=== PATIENT | male | born 1950 | race Caucasian/White ===

== ENCOUNTER 2019-07-23 09:55 | Observation (INO) | payer MEDICARE, OTHER, SELFPAY ==
[2019-07-23] VITALS (18 sets, daily range): BP systolic 115–155; BP diastolic 50–68; PULSE 56–68; RESP 12–94; TEMP 36.6–38.6; O2SAT 22–100; BMI 23.1
--- NOTE | 2019-07-23 | PATH_ITS ---
[facility] Accession Number: [id number] . 01 Material submitted: . gallbladder - GALLBLADDER . 01 Clinical history: . SENT OVER BY HIS DR . 02 Diagnosis: Gallbladder, Cholecystectomy: Acute necrotizing cholecystitis with serositis. Adenomyomatous hyperplasia. No evidence of dysplasia or malignancy. MRV 07/25/2019 1356 Local . 02 Electronically signed: . Miriam Collier MD, Pathologist NPI- [id number] . 01 Gross description: . Received in formalin, labeled gallbladder, is an opened gallbladder (length-9.3 cm, diameter-4.7 cm) with brown-pink smooth and shiny serosa and a patent cystic duct. No lymph nodes are identified. The lumen is void of content. The mucosa is brown-joy flat and focally rough. The wall is up to 0.1 cm thick. A joy-white firm nodule (0.5 x 0.4 x 0.3 cm) is identified attached to the most distal part of the fundus. No other nodules, masses or lesions are identified. Also, submitted is a dark green gritty friable calculus (0.5 x 0.3 x 0.3 cm). Section code: (A1) cystic duct resection margin and two serial sections from the body; (A2) fundus with nodule, longitudinally sectioned, nodule entirely submitted; (A3) two longitudinal sections from the fundus. ([id number]) /[facility] 07/24/2019 1747 Local . 02 Pathologist provided ICD-10: K81.0, K80.60 . 02 CPT . 698255 Performed at: [address] [facility], [place], [place] [id number] MD Aryan Marroquin MD Phone: [phone] Performed at: 02 [facility] [id number] [place] [id number] MD Miriam Collier MD Phone: [phone]
--- NOTE | 2019-07-23 | DI.RAD.S_ITS ---
PROCEDURE: XR CHOLANGIOGRAM OPERATIVE INDICATIONS: INTER OP [place]LIN COMPARISON: [facility], CT, CT ABDOMEN PELVIS W CON, 07/23/2019, 11:38. FINDINGS: Biliary ducts: The surgeon injected contrast into the biliary ducts after cannulation of the cystic duct stump. Mild dilatation of the extrahepatic duct and central intrahepatic ducts without stricture or focal filling defect. No intraluminal filling defects to suggest retained ductal stones or sludge. No evidence for iatrogenic ductal injury. Duodenum: Contrast flows promptly through the sphincter of Oddi into the duodenum, which appears normal in caliber. IMPRESSION: Mild biliary ductal dilatation. No stricture or stone identified. Dictated by: Robert Lomas M.D. on 07/23/2019 at 20:09 Approved by: Robert Lomas M.D. on 07/23/2019 at 20:11
[2019-07-23 10:38] LABS: Add Manual Diff / Slide Review NO; Basophils Absolute Auto 0 /uL (0-100); Basophils Percent Auto 0.3 % (0-2); Eosinophils Absolute Auto 0 /uL (0-450); Hematocrit 42.8 % (41-53); Hemoglobin 14.6 g/dL (13.5-17.5); Lymphocytes Absolute Auto 800 /uL (1100-4500); Lymphocytes Percent Auto 6.1 % (25-40); Mean Corpuscular HGB Conc 34.1 % (30-36); Mean Corpuscular Hemoglobin 32.3 PG (26-34); Mean Corpuscular Volume 94.7 fL (80-100); Monocytes Absolute Auto 1400 /uL (0-900); Monocytes Percent Auto 10.4 % (3-14); Neutrophils Absolute Auto 11000 /uL (1500-7000); Neutrophils Percent Auto 83.2 % (50-75); Platelet Count 206 X10^3/uL (150-400); Red Blood Cell Count 4.52 X10^6/uL (4.5-5.9); Red Cell Distribution Width 13.7 % (11.6-14.8); White Blood Cell Count 13.2 X10^3/uL (4.5-11.0)
[2019-07-23 10:51] LABS: Alanine Aminotransferase 31 IU/L (<50); Albumin 4.6 g/dL (3.5-5.0); Albumin Globulin Ratio 1.4 (1.0-2.8); Alkaline Phosphatase 57 U/L (38-126); Aspartate Aminotransferase 30 IU/L (17-59); BUN Creatinine Ratio 24.4 (6-22); Bilirubin Total 1.6 mg/dL (0.2-1.3); Blood Urea Nitrogen 22 mg/dL (9-20); Calcium 9.4 mg/dL (8.4-10.2); Carbon Dioxide 26 mmol/L (22-32); Chloride 99 mmol/L (98-107); Estimated Glomerular Filt Rate > 60.0 mL/min (>60); Globulin 3.3 g/dL (1.7-4.1); Glucose 149 mg/dL (80-110); HEMOLYSIS < 15 (0-50); Lipase 30 U/L (23-300); Sodium 136 mmol/L (137-145); Total Protein 7.9 g/dL (6.3-8.2)
[2019-07-23 10:56] LABS: INR 1.2 (0.9-1.3); Prothrombin Time 13.5 SECONDS (10.1-12.7)
[2019-07-23 10:59] LABS: PTT Partial Thromboplastin Tim 28 SECONDS (26.4-36.2)
--- NOTE | 2019-07-23 11:37 | DI.CT.S_ITS ---
PROCEDURE: CT ABDOMEN PELVIS W CON INDICATIONS: severe abdominal pain TECHNIQUE: After the administration of intravenous contrast, 5 mm thick sections acquired from the diaphragm to the symphysis. 5 mm coronal and sagittal reformats were acquired. For radiation dose reduction, the following was used: automated exposure control, adjustment of mA and/or kV according to patient size. COMPARISON: [facility], , ABD AORTA ANEURYSM SCREENING, 04/25/2017, 7:54. FINDINGS: Image quality: Excellent. ABDOMEN: Lung bases: Lung bases are clear. Heart size is normal. Solid organs: Liver is normal in size and enhancement. Gallbladder is distended, with a mildly thickened hyperenhancing abnormal. Pericholecystic fluid is seen. There is a gallstone seen lodged within the cystic duct. Biliary system is non dilated. Pancreas enhances normally. Spleen is normal in size and enhancement. No adrenal nodules. Kidneys demonstrate normal size and enhancement, without hydronephrosis. Peritoneum and bowel: There is abnormal thickening seen involving the cecum and the ascending colon, with mild surrounding inflammatory changes. Milder colonic wall thickening can be seen elsewhere. No dilated loops of small bowel are seen. No free air is seen. There is a mild amount of free fluid seen layering within the pelvis. Diverticulosis is seen, without findings of active diverticulitis. Nodes and vessels: No retroperitoneal or mesenteric adenopathy by size criteria. Aorta and inferior vena cava are normal in size. Miscellaneous: No ventral hernias. PELVIS: Genitourinary: Bladder wall thickness is normal. Miscellaneous: No inguinal hernias or adenopathy. Bones: No suspicious bony lesions. No vertebral body compression fractures. Mild levoconvex scoliotic curvature is noted. Focal L3-L4 degenerative change is seen. Milder degenerative changes are seen elsewhere. IMPRESSION: Abnormal gallbladder, with a gallstone seen lodged within the cystic duct. Acute cholecystitis is suspected. Please correlate with physical examination findings, patient presentation, and laboratory values. If clinically appropriate, a dedicated ultrasound could be performed for further evaluation/confirmation. Colitis seen, which is most prominent proximally. Please correlate with infectious and inflammatory causes. A mild amount of layering free fluid can be seen within the pelvis. Incidental note is made of: Diverticulosis is seen, without findings of active diverticulitis. Levoconvex scoliosis Focal L3-L4 degenerative change Note: Findings and recommendations discussed by telephone with Dr. Maino at 1203 hrs. [place] time on July 23, 2019. Dictated by: Dany Ruiz M.D. on 07/23/2019 at 10:58 Approved by: Dany Ruiz M.D. on 07/23/2019 at 11:05
--- NOTE | 2019-07-23 12:26 | ED_ITS ---
HPI - Abdominal Pain General Chief Complaint: Abdominal Pain Stated Complaint: Sent over by his Dr Source: patient Mode of arrival: Ambulatory Limitations: no limitations History of Present Illness HPI narrative: The patient is a 69-year-old male who came into the emergency department complaining of pain in the right lower abdomen. He denies having his gallbladder removed in the past or appendectomy. He has had no a surgery on his abdomen. The pain developed on Sunday and became progressively worse since . He saw his family doctor today and was sent into the emergency department to be further evaluated. He has been having intermittent fever chills and sweats. He has had no nasal drainage or sore throat. He denies any shortness of breath cough chest pain palpitations or dizziness. He has had nausea without vomiting he has had normal bowel movements without melena or hematochezia. He has had no diarrhea. He denies any urinary symptoms or pyuria. He denies any fall or injury. He admits to history of asthma as a child but has not had a myocardial infarction congestive heart failure stroke or diabetes mellitus. He does admit to a history of hypertension. Related Data Home Medications Medication Instructions Recorded Confirmed simvastatin 40 mg PO HS #0 07/31/17 07/23/19 cholecalciferol (vitamin D3) 1,000 unit PO DAILY 07/23/19 07/23/19 [Vitamin D3] Allergies Allergy/AdvReac Type Severity Reaction Status Date / Time No Known Allergies Allergy Verified 07/23/19 13:10 Review of Systems Review of Systems ROS Unobtainable: All systems reviewed & are unremarkable except as noted in HPI and below Patient History Medical History Asthma (Acute) Hypercholesteremia (Acute) Otosclerosis (Acute) Sciatic nerve pain (Acute) Surgical History Hx of tonsillectomy (Acute) Social History household members: spouse Smoking Status: Never smoker alcohol intake: current Smoking Status: Never smoker alcohol intake frequency: 0-2 drinks per day Exam Narrative Exam Narrative: PHYSICAL EXAM: CONSTITUTIONAL: Awake, Alert, Oriented, Coherent, Cooperative in NAD. Moves slowly and stiffly and appears stoic HEAD: AT/NC EENT: PERRL, FROM of eyes, no discharge, no nystagmus Oral mucosa is moist and pink, posterior pharynx is without erythema or exudate. NECK: Supple, no obvious JVD, Trachea is midline without stridor, no palpable LN or masses. SPINE: No gross deformity, no palpable tenderness of the cervical, thoracic, lumbar or sacral spine. No CVA tenderness. THORAX: No deformity, retractions, chest wall tenderness, subcutaneous air or crepitice. LUNGS: Clear with symmetrical breath sounds without respiratory distress HEART: Normal heart tones, regular rhythm and rate without murmur. ABDOMEN: Abdomen is flat and exquisitely tender with guarding in the right upper quadrant. There is no other palpable masses noted. Bowel sounds are present s EXTREMITIES: No edema, cyanosis, deformity or tenderness. SKIN: No rash, bruising, petechiae or purpura. NEURO: Awake, alert, oriented, conversive, cranial nerves II-XII are symmetrical and normal, moves all 4 extremities and is ambulatory Initial Vital Signs Initial Vital Signs: Vital Signs Temperature 98 F 07/23/19 10:04 Pulse Rate 57 L 07/23/19 10:04 Respiratory Rate 24 07/23/19 10:04 Blood Pressure 140/66 07/23/19 10:04 Pulse Oximetry 98 07/23/19 10:04 Course Course Course Narrative: 1205: The etiology is called in stated that the patient has acute cholecystitis with a thickened gallbladder wall and a gallstone in the neck of the gallbladder. He also has thickening of the colon wall consistent with colitis. However the patient does not complain he of a he history of diarrhea or hematochezia. On physical exam the patient is exquisitely tender on palpation of the right upper quadrant clinically consistent with acute cholecystitis. I will call and discuss the patient with the surgeon on-call. Dr. nasir cunha he the general surgeon on-call has been paged. [phone] Dr. Hernández he is in surgery and has accepted the patient being admitted. Orders Ordered: Acetaminophen (Tylenol) 650 mg PO Q6HR PRN PRN Reason: Pain, Mild (1-3) Enoxaparin Sodium (Lovenox) 40 mg SUBCUT DAILY NARCISO Gabapentin (Neurontin) 300 mg PO BID NARCISO Lactated Ringer's (Lactated Ringers) 1,000 mls @ 120 mls/hr IV CONT NARCISO Last Admin: 07/23/19 20:06 Dose: 120 mls/hr Documented by: BELLE Cefazolin Sodium/Dextrose (Ancef) 2 gm in 100 mls @ 200 mls/hr IV Q8H [facility] Stop: 07/24/19 09:29 Ketorolac Tromethamine (Toradol) 30 mg IV Q8HR PRN PRN Reason: Pain Stop: 07/28/19 19:28 Morphine Sulfate (Morphine) 4 mg IV Q4HR PRN PRN Reason: Pain, Severe (7-10) Naloxone HCl (Narcan) 0.2 mg IV Q2MIN PRN PRN Reason: Opiate Reversal Ondansetron HCl (Zofran) 4 mg IV Q4HR PRN PRN Reason: Nausea And Vomiting Simvastatin (Zocor) 40 mg PO BEDTIME [facility] Discontinued Medications Acetaminophen (Tylenol) 975 mg PO NOW ONE Stop: 07/23/19 16:32 Last Admin: 07/23/19 16:43 Dose: 975 mg Documented by: NELLA Bupivacaine HCl (Sensorcaine 0.5% (Pf)) 30 ml INJ NOW ONE Stop: 07/23/19 17:54 Last Admin: 07/23/19 17:54 Dose: 30 ml Documented by: DWAYNE Celecoxib (Celebrex) 400 mg PO NOW ONE Stop: 07/23/19 16:32 Last Admin: 07/23/19 16:43 Dose: 400 mg Documented by: NELLA Fentanyl (Sublimaze) 0 mcg IV Q5MIN PRN PRN Reason: Pain, Severe (7-10) Gabapentin (Neurontin) 300 mg PO NOW ONE Stop: 07/23/19 16:32 Last Admin: 07/23/19 16:43 Dose: 300 mg Documented by: NELLA Hydromorphone HCl (Dilaudid) 0 mg IV Q5MIN PRN PRN Reason: Pain, Mild (1-3) Sodium Chloride (Normal Saline 0.9%) 1,000 mls @ 1,000 mls/hr IV BOLUS ONE Stop: 07/23/19 12:48 Last Infusion: 07/23/19 13:59 Dose: 0 mls/hr Documented by: Admin: 07/23/19 12:43 Dose: 1,000 mls/hr Documented by: GALO Piperacillin/Tazobactam/Dextrose (Zosyn) 4.5 gm in 100 mls @ 200 mls/hr IV NOW ONE Stop: 07/23/19 13:34 Last Infusion: 07/23/19 14:00 Dose: 0 mls/hr Documented by: Admin: 07/23/19 13:17 Dose: 200 mls/hr Documented by: ROCK Lactated Ringer's (Lactated Ringers) 1,000 mls @ 42 mls/hr IV CONT NARCISO Last Infusion: 07/23/19 19:38 Dose: 0 mls/hr Documented by: Admin: 07/23/19 18:31 Dose: 42 mls/hr Documented by: Infusion: 07/23/19 18:31 Dose: 42 mls/hr Documented by: Admin: 07/23/19 16:39 Dose: 42 mls/hr Documented by: NELLA Cefazolin Sodium/Dextrose (Ancef) 2 gm in 100 mls @ 200 mls/hr IV NOW ONE Stop: 07/23/19 18:20 Last Infusion: 07/23/19 17:05 Dose: 0 mls/hr Documented by: Admin: 07/23/19 17:00 Dose: 200 mls/hr Documented by: BRIAN Iopamidol (Isovue-M 300) 15 ml INJ NOW ONE Stop: 07/23/19 18:24 Last Admin: 07/23/19 18:23 Dose: 30 ml Documented by: DWAYNE Morphine Sulfate (Morphine) 4 mg IV NOW ONE Stop: 07/23/19 12:31 Last Admin: 07/23/19 12:44 Dose: 4 mg Documented by: GALO Morphine Sulfate (Morphine) 4 mg IV NOW ONE Stop: 07/23/19 14:28 Last Admin: 07/23/19 14:23 Dose: Not Given Documented by: ROCK Ondansetron HCl (Zofran) 4 mg IV NOW ONE Stop: 07/23/19 11:50 Last Admin: 07/23/19 12:44 Dose: 4 mg Documented by: GALO Oxycodone HCl (Percolone) 5 mg PO PACUNOW PRN PRN Reason: Mild or moderate pain Vital Signs Vital signs: Vital Signs - 8 hr 07/23/19 14:33 Pulse Rate 64 Respiratory Rate 23 Blood Pressure 152/68 H Pulse Oximetry 98 MDM - Abdominal Pain Lab Data Result diagrams: 07/23/19 10:32 07/23/19 10:32 Labs: Lab Results 07/23/19 07/23/19 07/23/19 Range/Units 10:32 10:32 10:32 WBC 13.2 H (4.5-11.0) X10^3/uL RBC 4.52 (4.5-5.9) X10^6/uL Hgb 14.6 (13.5-17.5) g/dL Hct 42.8 (41-53) % MCV 94.7 (80-100) fL MCH 32.3 (26-34) PG MCHC 34.1 (30-36) % RDW 13.7 (11.6-14.8) % Plt Count 206 (150-400) X10^3/uL Neut % (Auto) 83.2 H (50-75) % Lymph % (Auto) 6.1 L (25-40) % [place] % (Auto) 10.4 (3-14) % Eos % (Auto) 0.0 L (2-4) % Baso % (Auto) 0.3 (0-2) % Neut # (Auto) 82886 H (1242-2914) /uL Lymph # (Auto) 800 L (9781-2600) /uL [place] # (Auto) 1400 H (0-900) /uL Eos # (Auto) 0 (0-450) /uL Baso # (Auto) 0 (0-100) /uL PT 13.5 H (10.1-12.7) SECONDS INR 1.2 (0.9-1.3) APTT 28 (26.4-36.2) SECONDS Sodium 136 L (137-145) mmol/L Potassium 4.0 (3.4-5.1) mmol/L Chloride 99 (98-107) mmol/L Carbon Dioxide 26 (22-32) mmol/L BUN 22 H (9-20) mg/dL Creatinine 0.90 (0.66-1.25) mg/dL Estimated GFR > 60.0 (>60) mL/min BUN/Creatinine Ratio 24.4 H (6-22) Glucose 149 H (80-110) mg/dL Calcium 9.4 (8.4-10.2) mg/dL Total Bilirubin 1.6 H (0.2-1.3) mg/dL AST 30 (17-59) IU/L ALT 31 (<50) IU/L Alkaline Phosphatase 57 (38-126) U/L Total Protein 7.9 (6.3-8.2) g/dL Albumin 4.6 (3.5-5.0) g/dL Globulin 3.3 (1.7-4.1) g/dL Albumin/Globulin Ratio 1.4 (1.0-2.8) Lipase 30 (23-300) U/L Discharge Plan Departure Patient Disposition: Admitted As Inpatient Clinical Impression: Acute cholecystitis, Colitis Abdominal pain Qualifiers: Abdominal location: right lower quadrant Qualified Code(s): R10.31 - Right lower quadrant pain Cholelithiasis Qualifiers: Cholelithiasis location: gallbladder Cholecystitis presence: with cholecystitis Cholecystitis acuity: acute Biliary obstruction: without biliary obstruction Qualified Code(s): K80.00 - Calculus of gallbladder with acute cholecystitis without obstruction Discharge Date/Time: 07/23/19 14:33 Referrals: Ana Monte MD [Primary Care Provider] - Admit Date/Time: 07/23/19 14:41 Admit Provider: Abebe Lindsay
[2019-07-23] MEDS: SODIUM CHLORIDE 0.9% 1,000 ML 1000 ML IV (12:43)
[2019-07-23] MEDS: ONDANSETRON 4 MG/2 ML INJ IV (12:44)
[2019-07-23] MEDS: MORPHINE 4 MG/ML INJ IV (12:44)
[2019-07-23] MEDS: PIPERACILLIN-TAZO 4.5 GM/100 ML FROZ.PIGGY IV (13:17)
--- NOTE | 2019-07-23 14:32 | PC.NURSE ---
Patient states wave of pain let up and is comfortable at this time. holding off on repeat dose of morphine per patient request and improvement of pain
--- NOTE | 2019-07-23 16:16 | PM.HP.1 ---
History of Present Illness History of Present Illness Date Patient Seen: 07/23/19 Time Patient Seen: 16:17 Chief complaint: Sent over by his Dr Narrative: Patient is gentleman with a history of several days of upper abdominal pain right upper quadrant pain accompanied by nausea. Last had p.o. this morning at 7:00 a.m. some toast. No prior history of this severe pain. It really hasn't gone away over the last 3 days. He has had reflux and heartburn before but this is nothing like the symptoms. No prior abdominal operations. Patient History Medical History Asthma (Acute) Hypercholesteremia (Acute) Otosclerosis (Acute) Sciatic nerve pain (Acute) Surgical History Hx of tonsillectomy (Acute) Family & Social History Social History: household members spouse Prior Living Arrangements House Safety & Behavioral: Feels Safe in Current Yes Environment Been Physically Hurt or No Threatened By a Person Suicidal Ideation Description None Tobacco & Substance use: Smoking Status Never smoker alcohol intake current alcohol intake frequency 0-2 drinks per day Meds Home Medications and Allergies Home Medications Medication Instructions Recorded Confirmed Type simvastatin 40 mg PO HS #0 07/31/17 07/23/19 History cholecalciferol (vitamin D3) 1,000 unit PO DAILY 07/23/19 07/23/19 History [Vitamin D3] Allergies Allergy/AdvReac Type Severity Reaction Status Date / Time No Known Allergies Allergy Verified 07/23/19 13:10 Review of Systems Review of Systems Narrative: Patient denies visual difficulties double vision pain is eyes earache sore throat no history of jaundice patient denies tooth aches no trouble swallowing. Had asthma as a child but no problems as an adult with asthma. Patient has no cough or cold. No heart problems chest pain or murmurs. No black or bloody bowel movements. Last colonoscopy was 2 years ago. No history of blood in his urine or kidney stones. No seizures or blackouts. No anxiety or depression. No unusual bruising or bleeding. Otherwise healthy except he does have some problems with back pain and has had a an injection for it. Exam Vital Signs (past 8 hours): - 07/23/19 10:04 07/23/19 10:35 07/23/19 14:33 Temperature 98 F Pulse Rate 57 L 56 L 64 Respiratory Rate 24 14 23 Blood Pressure 140/66 152/68 H Blood Pressure [Left Arm] 143/68 H Blood Pressure [Right Arm] 144/66 H Pulse Oximetry 98 98 07/23/19 14:54 07/23/19 15:39 Temperature 101.0 F H 101.5 F H Pulse Rate 60 60 Respiratory Rate 16 18 Blood Pressure 155/65 H 146/66 H Blood Pressure [Left Arm] Blood Pressure [Right Arm] Pulse Oximetry 99 100 Oxygen Delivery Method Room Air Oxygen Flow Rate 0 Narrative Exam Narrative: Cooperative no apparent distress thin gentleman eyes nonicteric pupils equal round reactive to light conjunctiva are pink ears without lesion nasal septum is midline oral mucosa is pink dry no open lesions no splits in his lips. His neck is supple there are no nodes in the neck supraclavicular areas trachea is midline mobile thyroid is not enlarged lungs are clear to auscultation without rales or rhonchi in equal percussion heart regular rate and rhythm without murmur gallop no bruit in the neck. Abdomen is scaphoid soft, discretely tender in the right upper quadrant. There are no masses no obvious hernias liver and spleen are not enlarged. Patient is alert oriented x3. Speech rate and content appropriate affect is appropriate Objective Imaging CT scan - abdomen: My impression: Distended gallbladder with thickened wall and gallstone. Radiologist's impression: Radiologist suggested the presence of colitis however not sure agree. Patient is asymptomatic in any event for colitis. Labs Result Diagrams: 07/23/19 10:32 07/23/19 10:32 Labs: Laboratory Results - last 24 hr 07/23/19 07/23/19 07/23/19 10:32 10:32 10:32 WBC 13.2 H RBC 4.52 Hgb 14.6 Hct 42.8 MCV 94.7 MCH 32.3 MCHC 34.1 RDW 13.7 Plt Count 206 Neut % (Auto) 83.2 H Lymph % (Auto) 6.1 L [place] % (Auto) 10.4 Eos % (Auto) 0.0 L Baso % (Auto) 0.3 Neut # (Auto) 91036 H Lymph # (Auto) 800 L [place] # (Auto) 1400 H Eos # (Auto) 0 Baso # (Auto) 0 PT 13.5 H INR 1.2 APTT 28 Sodium 136 L Potassium 4.0 Chloride 99 Carbon Dioxide 26 BUN 22 H Creatinine 0.90 Estimated GFR > 60.0 BUN/Creatinine Ratio 24.4 H Glucose 149 H Calcium 9.4 Total Bilirubin 1.6 H AST 30 ALT 31 Alkaline Phosphatase 57 Total Protein 7.9 Albumin 4.6 Globulin 3.3 Albumin/Globulin Ratio 1.4 Lipase 30 Assessment & Plan Assessment & Plan narrative: Patient with a distended gallbladder tenderness in the right upper quadrant pain and gallstones and elevated bili I have recommend laparoscopic cholecystectomy and will to attempt a cholangiogram I've discussed the procedure with him including risks of bleeding, infection, hernia, bile leakage, injury to internal organs or ducts which would require major operation to repair he appears to understand. He understands he could require postoperative ERCP should he have a leak or have stones outside of his cystic duct and gallbladder. All questions were answered. He appears to understand wishes to proceed.
[2019-07-23 16:21] LABS: Bacteria Urine None Seen; RBC Urine None Seen (0-5/HPF); WBC Urine None Seen (0-5/HPF)
[2019-07-23 16:25] LABS: Appearance Urine UA CLEAR; Bilirubin Urine UA NEGATIVE (NEGATIVE); Color Urine UA YELLOW; Glucose Urine UA NEGATIVE (Negative); Ketones Urine UA TRACE (NEGATIVE); Leukocyte Esterase Urine UA NEGATIVE (NEGATIVE); Nitrite Urine UA NEGATIVE (Negative); Occult Blood Urine UA TRACE-LYSED (Negative); Protein Urine UA 1+ (Negative)
[2019-07-23 16:34] LABS: Culture Indicated Urine Cult Not Indicated; Urine Comments Microscopic Normal
[2019-07-23] MEDS: LACTATED RINGERS 1,000 ML 42 ML IV ×2 (16:39→18:31)
[2019-07-23] MEDS: ACETAMINOPHEN 325 MG TABLET 975 MG PO (16:43)
[2019-07-23] MEDS: GABAPENTIN 300 MG CAPSULE PO ×2 (16:43→21:36)
[2019-07-23] MEDS: CELECOXIB 200 MG CAPSULE 400 MG PO (16:43)
--- NOTE | 2019-07-23 16:43 | PM.PREOP ---
Pre-operative Note Interval Note History & Physical reviewed/Exam performed by Physician: Yes Changes to H&P: No
[2019-07-23] MEDS: CEFAZOLIN 2 GM/100 ML FROZ.PIGGY IV (17:00)
--- NOTE | 2019-07-23 17:43 | SUR.OPER ---
Supine on padded OR bed, head on pillow, safety belt at thigh, left arm padded and tucked at side. Right arm secured on padded arm oard <90 degrees abduction. Legs uncrossed. Padded footboard in place. Tape over blanket to secure lower legs.
[2019-07-23] MEDS: BUPIVACAINE 0.5% (PF) VIAL 30 ML INJ (17:54)
[2019-07-23] MEDS: IOPAMIDOL 15 ML VIAL INJ (18:23)
--- NOTE | 2019-07-23 19:11 | SUR.PHASEI ---
Reported off to Billy Echavarria RN for continuation of care.
--- NOTE | 2019-07-23 19:16 | PM.OP.1 ---
Operative Date/Time/Diagnoses Date of procedure: 07/23/19 Time of procedure: 19:16 Pre-op diagnosis: Acute cholecystitis with cholelithiasis Post-op diagnosis: same Procedure & Clinicians Procedure: Laparoscopic cholecystectomy with intraoperative cholangiogram Same procedure as scheduled: Yes Indications: Severe right upper quadrant pain and CT suggesting acute cholecystitis Surgeon: Abebe Lindsay Click Yes if Unassisted: Yes Anesthesia Type: General Operative Notes Findings: Ronald and inflammation of the gallbladder with the beginning of hemorrhagic necrosis. Culture sent. Closure Type: primary Specimen(s): other (Gallbladder and stone) Prosthetic devices, grafts, tissues, transplants, or devices: None Estimated Blood Loss (mL): 20 Blood products transfused: none Procedure in detail: The patient was placed supine on the operating room table and underwent general endotracheal anesthesia. The patient was prepped and draped in the usual fashion. Local anesthetic was infiltrated near the umbilicus and curvilinear incision made and carried down through fascia into the peritoneal cavity. Stay sutures of 0 Vicryl were placed in the fascia. A 12 mm port was placed. The abdomen was insufflated. The patient was repositioned. Local anesthetic was infiltrated in 3 areas under the right costal margin and 3 small incisions made followed by placing 3 5 mm ports under direct laparoscopic camera vision internally. The gallbladder was encased in omentum and this was swept down off the gallbladder. The gallbladder was tensely distended and I inserted a needle and aspirated about 30 cc of greenish fluid which was cultured. The gallbladder was grasped and elevated. Dissection was begun near its end. I was able to identify the end of the gallbladder and a ductal structure going directly to it as well as a vascular structure and separate each of these from 1 another. A clip was placed at the junction of the gallbladder with the cystic duct and a small jensen was intentionally made in the cystic duct in order to insert a cholangiocatheter. Cholangiogram was performed. This showed a tapering duct with free flow into the duodenum and no persistent filling defects. The catheter was removed and 4 clips were placed across the duct and it was divided leaving all 4 in the patient. The artery had 3 clips placed across it and it was divided leaving 2 in the patient.. The gallbladder was then dissected from its bed in the liver using cautery. Hemostasis was achieved as I proceeded. The gallbladder was detached and removed through the umbilical port. the right upper quadrant was then irrigated and suctioned free of fluid. There was no ongoing bleeding. The ports were all removed. The port sites were all irrigated. The stay sutures at the umbilicus were elevated. A 2 0 PDS suture was placed between them. The Vicryl and PDS sutures were then tied. The skin in all areas was closed with interrupted 4 0 Vicryl subcuticular stitches. Steri-Strips and Mastisol were applied. Band-Aids were placed and the patient was awakened, extubated and taken to the recovery area in good condition. Complications: none Post-operative Condition: stable Disposition: PACU
--- NOTE | 2019-07-23 19:26 | SUR.PHASEI ---
191 Assumed care, abdominal bandaids CDI, abdomen soft. Pt denies pain/nausea. Ice chips given. 192 Report called to RN. VSS. Resp unlabored.
--- NOTE | 2019-07-23 19:57 | SUR.PHASEI ---
1944 to room 228, bed down and locked, call light within reach, spouse in the room, Pt. awake and talking, denies pain/nausea, tolerating PO intake well. Abd bandaids remain CDI with ice pack in place, abdomen flat. Skin warm and dry, resp unlabored. No questions/concerns from patient, spouse, or staff. VSS.
[2019-07-23] MEDS: LACTATED RINGERS 1,000 ML 120 ML IV (20:06)
--- NOTE | 2019-07-23 20:18 | PC.NURSE ---
1955 - Pt returned from PACU. Awake and alert, taking ice chips. Denies pain. Denies nausea. Bandaid Drsg to abd CDI. Reinforced safety and call light use. Call light in reach.
[2019-07-23] MEDS: SIMVASTATIN 40 MG TABLET PO (21:37)
[2019-07-24] MEDS: CEFAZOLIN 2 GM/100 ML FROZ.PIGGY IV ×2 (00:21→09:03)
[2019-07-24 00:37] VITALS: BP 122/61; PULSE 60; RESP 16; TEMP 37.3; O2SAT 92
--- NOTE | 2019-07-24 00:39 | PC.NURSE ---
Pt. do not have a left AC IV but RAC.
[2019-07-24 04:46] VITALS: BP 119/58; PULSE 55; RESP 16; TEMP 36.2; O2SAT 96
[2019-07-24] MEDS: LACTATED RINGERS 1,000 ML 120 ML IV (04:50)
[2019-07-24 05:11] LABS: Add Manual Diff / Slide Review NO; Basophils Absolute Auto 0 /uL (0-100); Basophils Percent Auto 0.1 % (0-2); Eosinophils Absolute Auto 0 /uL (0-450); Hematocrit 38.6 % (41-53); Hemoglobin 13.1 g/dL (13.5-17.5); Lymphocytes Absolute Auto 500 /uL (1100-4500); Lymphocytes Percent Auto 4.5 % (25-40); Mean Corpuscular Hemoglobin 32.1 PG (26-34); Mean Corpuscular Volume 94.5 fL (80-100); Monocytes Absolute Auto 700 /uL (0-900); Monocytes Percent Auto 6.3 % (3-14); Neutrophils Absolute Auto 9400 /uL (1500-7000); Neutrophils Percent Auto 89.1 % (50-75); Platelet Count 155 X10^3/uL (150-400); Red Blood Cell Count 4.09 X10^6/uL (4.5-5.9); Red Cell Distribution Width 13.6 % (11.6-14.8); White Blood Cell Count 10.6 X10^3/uL (4.5-11.0)
[2019-07-24 05:23] LABS: Alanine Aminotransferase 62 IU/L (<50); Albumin 3.6 g/dL (3.5-5.0); Albumin Globulin Ratio 1.2 (1.0-2.8); Alkaline Phosphatase 60 U/L (38-126); Aspartate Aminotransferase 56 IU/L (17-59); BUN Creatinine Ratio 24.4 (6-22); Bilirubin Total 1.1 mg/dL (0.2-1.3); Blood Urea Nitrogen 22 mg/dL (9-20); Calcium 8.6 mg/dL (8.4-10.2); Carbon Dioxide 23 mmol/L (22-32); Chloride 101 mmol/L (98-107); Estimated Glomerular Filt Rate > 60.0 mL/min (>60); Glucose 179 mg/dL (80-110); HEMOLYSIS < 15 (0-50); Potassium 4.4 mmol/L (3.4-5.1); Sodium 136 mmol/L (137-145); Total Protein 6.6 g/dL (6.3-8.2)
[2019-07-24 08:00] VITALS: BP 143/68; PULSE 53; RESP 16; TEMP 36.4; O2SAT 98
[2019-07-24 08:20] VITALS: PULSE 55; O2SAT 97
[2019-07-24] MEDS: GABAPENTIN 300 MG CAPSULE PO (09:01)
[2019-07-24] MEDS: ENOXAPARIN 40 MG/0.4 ML SYRINGE SUBCUT (09:02)
--- NOTE | 2019-07-24 10:32 | PC.NURSE ---
Pt. has been up to the restroom twice with standby assist only and has had two bowel movements. Pt.'s urine is fairly concentrated and a medium orange color. Diet has advanced to general. Patient has denied pain all morning and is currently sitting in the chair visiting with his .
--- NOTE | 2019-07-24 11:04 | P.DS_ITS ---
History of Present Illness History of Present Illness Chief complaint: Sent over by his Dr Narrative: Patient is gentleman with a history of several days of upper abdominal pain right upper quadrant pain accompanied by nausea. Last had p.o. this morning at 7:00 a.m. some toast. No prior history of this severe pain. It really hasn't gone away over the last 3 days. He has had reflux and heartburn before but this is nothing like the symptoms. No prior abdominal operations. Discharge Providers Provider Date of admission: 07/23/19 14:41 Discharge Date: 07/24/19 Primary care physician: Ana Monte MD Consults: 07/23/19 19:56 Consult to Discharge Planning Routine Comment: Discharge provider: Abebe Lindsay MD Summary Hospital Course Discharge Diagnosis: Acute cholecystitis with cholelithiasis Elevated cholesterol Mild anemia felt secondary principally to fluid shifts due to illness Elevated bilirubin resolved most likely secondary to acute cholecystitis Colitis suggested on CT scan most likely related to marked inflammation of the gallbladder adjacent to the colon rather than to a colonic process. Hospital Course: The patient was admitted taken to the operating room where a markedly inflamed hemorrhagic gallbladder was removed along with stones. Chol angiogram was normal. Postoperatively he felt much better and was discharged the following morning to follow up in the office. Status at Discharge Cognitive/behavioral status at discharge: oriented Functional status at discharge: independent ambulation Overall status at discharge: patient is progressing back to baseline Time Spent with Patient Time spent: Less than 30 minutes Exam Vital Signs (past 8 hours): - 07/24/19 04:46 07/24/19 08:00 07/24/19 08:20 Temperature 97.2 F L 97.5 F L Pulse Rate 55 L 53 L 55 L Respiratory Rate 16 16 Blood Pressure 119/58 L 143/68 H Pulse Oximetry 96 98 97 Oxygen Delivery Method Room Air Oxygen Flow Rate 0 Narrative Exam Narrative: Lungs are clear. Good effort. Abdomen mildly distended soft dressings are dry intact Objective Labs Result Diagrams: 07/24/19 04:47 07/24/19 04:47 Labs: Laboratory Results - last 24 hr 07/23/19 07/23/19 07/24/19 14:45 15:00 04:47 WBC 10.6 RBC 4.09 L Hgb 13.1 L Hct 38.6 L MCV 94.5 MCH 32.1 MCHC 34.0 RDW 13.6 Plt Count 155 Neut % (Auto) 89.1 H Lymph % (Auto) 4.5 L [place] % (Auto) 6.3 Eos % (Auto) 0.0 L Baso % (Auto) 0.1 Neut # (Auto) 9400 H Lymph # (Auto) 500 L [place] # (Auto) 700 Eos # (Auto) 0 Baso # (Auto) 0 Sodium Potassium Chloride Carbon Dioxide BUN Creatinine Estimated GFR BUN/Creatinine Ratio Glucose Calcium Total Bilirubin AST ALT Alkaline Phosphatase Total Protein Albumin Globulin Albumin/Globulin Ratio Urine Color Yellow Urine Appearance Clear Urine pH 7.0 Ur Specific [place] 1.010 Urine Protein 1+ H Urine Glucose (UA) Negative Urine Ketones Trace H Urine Occult Blood Trace-lysed Urine Nitrate Negative Urine Bilirubin Negative Urine Urobilinogen 1.0 Ur Leukocyte Esterase Negative Urine RBC None seen Urine WBC None seen Urine Bacteria None seen Ur Culture Indicated? Cult not indicated Micro UA Comment Microscopic normal Nasal Screen MRSA (PCR) Negative for mrsa 07/24/19 04:47 WBC RBC Hgb Hct MCV MCH MCHC RDW Plt Count Neut % (Auto) Lymph % (Auto) [place] % (Auto) Eos % (Auto) Baso % (Auto) Neut # (Auto) Lymph # (Auto) [place] # (Auto) Eos # (Auto) Baso # (Auto) Sodium 136 L Potassium 4.4 Chloride 101 Carbon Dioxide 23 BUN 22 H Creatinine 0.90 Estimated GFR > 60.0 BUN/Creatinine Ratio 24.4 H Glucose 179 H Calcium 8.6 Total Bilirubin 1.1 AST 56 ALT 62 H Alkaline Phosphatase 60 Total Protein 6.6 Albumin 3.6 Globulin 3.0 Albumin/Globulin Ratio 1.2 Urine Color Urine Appearance Urine pH Ur Specific [place] Urine Protein Urine Glucose (UA) Urine Ketones Urine Occult Blood Urine Nitrate Urine Bilirubin Urine Urobilinogen Ur Leukocyte Esterase Urine RBC Urine WBC Urine Bacteria Ur Culture Indicated? Micro UA Comment Nasal Screen MRSA (PCR) Discharge Plan Discharge Plan Patient Disposition: Home Discharge comment: Your operation went well. Your gallbladder was quite inflamed. Discharge orders & Medications Prescriptions: New hydrocodone-acetaminophen [[place]] 5-325 mg tablet 1 tab PO Q4H PRN (Reason: pain) Qty: 10 RF: 0 Continued simvastatin 40 MG tablet 40 mg PO HS Qty: 0 RF: 0 cholecalciferol (vitamin D3) [Vitamin D3] 25 mcg (1,000 unit) Tablet 1,000 unit PO DAILY RF: 0 Follow up/Referrals: Ana Monte MD [Primary Care Provider] - Tyrell Meek MD [Physician] - 07/31/19 9:00 am (If you need to reach a doctor please call our office. If it is after hours call and listen to the entire message. At the end you will be connected with our page tomahawk weapon system operator who will call the doctor on-call) Abebe Lindsay MD [Physician] - None (I will not be available next week to see you in the office before your trip and therefore you will see my partner, Dr. Meek) Diet/Activity/Treatments Diet: Diet as Tolerated Activity: Do not lift over 10 lb or strain for the next 4 weeks. You may walk short and leisurely stroller is. No pool or tub for least 2 weeks. Skin/Wound/Dressing Care Report to your healthcare provider any signs of infection, such as:: chills, fever, increased pain, unusual drainage and unusual redness Dressing: You may remove Band-Aids in 2 days and get in the shower. Leave the tape under the Band-Aids fall off on its own. Visit Report/Discharge Packet Instructions: DI for Cholecystectomy, DI for Laparoscopy, Hydrocodo ne/Acetaminophen (By mouth) Visit Report Forms: Patient Portal/API, Stroke Signs & Symptoms Discharge Data Primary Care Provider: Ana Monte Attending Provider: Abebe Lindsay Admit Date/Time: 07/23/19 14:41 Discharges patient from system. Discharge Date/Time: 07/24/19 12:40
--- NOTE | 2019-07-24 11:59 | PC.NURSE ---
Addendum entered by Beny Landaverde R.N. 07/24/19 12:43: Please amend d/c time to state 1240. Addendum entered by Beny Landaverde R.N. 07/24/19 12:42: Pt d/c'd to home with spouse at 1140. Declined w/c transport to private vehicle. Student nurse escorted pt and spouse to exit for d/c. Pt was in no acute distress. Pt left with all belongings. Original Note: Pt to d/c home per MD orders. D/c teaching was done with pt and spouse at the bedside. Reviewed dx, post op plan, f/u appt, activity measures, diet progression, s/s post op wound infx, when to seek emergency medical tx, educated to rx (dose route time side effects monitoring). Pt and spouse verbalize understanding and state no questions at this time. PIV was removed earlier as charted. All belongings are gathered and pt will have lunch prior to d/c.
--- NOTE | 2019-07-24 12:44 | CM.DANOTE ---
Addendum entered by Mireya Gao LPN 07/24/19 12:49: Went to room to check in with pt. Pt had already left for home, per FAHEEM Swan, with his providing transport. Original Note: Discharge Planning/Care Management DCP: assessment: case received and discussed. EMR reviewed. Pt is a 69 year old male who admitted yesterday afternoon to care of [facility]: Dr. Lindsay PCP: Dr. Ana Monte Payer: Medicare and [employer] Admission status: in review: per UR FAHEEM Corado Pt was taken to surgery yesterday for Lap Cholecytectomy with IOC. Dr. Lindsay was here earlier, put in d/c orders for home. CM Discharge Assessment Start: 07/24/19 12:27 Freq: Status: Discharge Protocol: Document 07/24/19 12:43 ITV (Rec: 07/24/19 12:44 ITV [id number]) Discharge Planning Assessment Advance Directives? Yes Advance Directives on File Yes History Provided By Medical Record Prior Living Arrangements House Household Members spouse Is patient alert and oriented? Yes Review Status In Process
== END 2019-07-24 12:40 | disposition home or self-care (01) ==
LOC: ED 12:43 → ICU 14:55
PROVIDERS: Admitting Provider Specialist; Emergency Provider Emergency Medicine; PCP Student in an Organized Health Care Education/Training Program; Visit Provider Specialist
PROC: 0FT44ZZ Resection of Gallbladder, Percutaneous Endoscopic Approach (ICD-10-PCS; CPT 47562; principal; 2019-07-23 16:45)
DX: K80.00 Calculus of gallbladder with acute cholecystitis without obstruction (principal)
CPT/HCPCS: 47563; 36415; 74177; 74300; 76000; 80053; 81001; 83690; 85025; 85610; 85730; 87070; 87075; 87077; 87186; 87205; 87797; 93005; 93010; 94760; 96361; 96365; 96372; 96375; 99284; G0378; J0330; J0690; J1100; J1650; J1885; J2270; J2405; J2543; J2704; J3010; Q9967

== ENCOUNTER 2022-08-16 17:11 | Observation (INO) | payer MEDICARE, SELFPAY ==
[2019-07-23 15:27] VITALS: BMI 23.1
[2022-08-16] VITALS (15 sets, daily range): BP systolic 110–173; BP diastolic 57–76; PULSE 64–84; RESP 21–25; TEMP 36.8; O2SAT 94–99; BMI 23.1
--- NOTE | 2022-08-16 18:16 | ED.GENADULT ---
HPI - General Adult General Chief complaint: Abdominal Pain Stated complaint: lower abd pain Time Seen by Provider: 08/16/22 18:04 Source: patient and family () Mode of arrival: Ambulatory Limitations: no limitations History of Present Illness HPI narrative: Patient is a 72-year-old male. Is relatively healthy. Is here for evaluation of lower abdominal pain for the past couple days. Patient also had vomiting upon arrival here in the triage room. He would not had vomiting until coming here to the ER. He also states that he is having issues with urinating. Also states that he has had problems with having bowel movements. He feels like yes with a bathroom but has been unable to do so. Generally just not feel well. No chest pain. No shortness of breath. Had a colonoscopy 5 years ago. Had benign polyps removed. Was told that he needed a repeat colonoscopy in 5 years. Patient also reports a fever last evening. Related Data Home Medications Medication Instructions Recorded Confirmed cholecalciferol (vitamin D3) 25 1,000 unit PO DAILY 07/23/19 05/25/22 mcg (1,000 unit) tablet (Vitamin D3) Previous Rx's Medication Instructions Recorded simvastatin 40 mg tablet 40 mg PO BEDTIME #90 tabs 05/25/22 Allergies Allergy/AdvReac Type Severity Reaction Status Date / Time No Known Allergies Allergy Verified 05/25/22 08:57 Review of Systems Constitutional Constitutional: Reports system reviewed and no additional complaints, except as documented Cardiovascular Cardiovascular: Reports system reviewed and no additional complaints, except as documented Respiratory Respiratory: Reports system reviewed and no additional complaints, except as documented Gastrointestinal Gastrointestinal: Reports system reviewed and no additional complaints, except as documented Genitourinary Genitourinary: Reports system reviewed and no additional complaints, except as documented Integumentary/Breasts Skin/Breast: Reports system reviewed and no additional complaints, except as documented Hematologic/Lymphatic On Anticoagulants: No Patient History Medical History Asthma Chronic low back pain Erectile dysfunction Family history of prostate cancer Hearing loss History of colonic polyps Hypercholesteremia Mixed hyperlipidemia Obstructive sleep apnea (~1999) Sciatic nerve pain Seborrheic dermatitis Tinnitus Surgical History Anesthesia History of cholecystectomy (~2019) Hx of tonsillectomy (~1954) Otosclerosis (~1977) Family History Father Congestive heart failure Mother Dementia Sister Joint replaced Sister Joint replaced Social History details: (Marianela), 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, 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 household members: spouse Smoking Status: Never smoker alcohol intake: current Smoking Status: Never smoker alcohol intake frequency: 0-2 drinks per day Substance Use Type: does not use Exam Initial Vital Signs Initial Vital Signs: Vital Signs Temperature 98.2 F 08/16/22 17:46 Pulse Rate 72 08/16/22 17:46 Respiratory Rate 22 08/16/22 17:46 Blood Pressure 137/76 08/16/22 17:46 Pulse Oximetry 97 08/16/22 17:46 Oxygen Delivery Method 08/16/22 17:46 Const General: cooperative, healthy appearing and No ill appearing HENMT Head: normal to inspection and normocephalic Cardio Rate: regular rate Rhythm: abnormal rhythm GI Inspection: normal to inspection Palpation: No guarding and tender (Suprapubic/lower abdomen) Back/Spine/Pelvis Back: No CVA tenderness Skin General: no rashes or lesions noted Neuro General: patient alert, patient awake and moves all extremities Extrem General: normal to inspection and capillary refill normal Scores GCS [place] coma scale eye opening: Spontaneous [place] coma scale verbal response: Orientated [place] coma scale motor response: Obey commands [place] coma scale total score: 15 Course Orders Ordered: ED Orders 08/16/22 17:57 EKG-12 Lead Stat 08/16/22 18:20 Complete Blood Count AUTO DIFF Stat Comprehensive Metabolic Panel Stat Lipase Stat 08/16/22 18:44 CT abdomen pelvis w con Stat 08/16/22 19:00 Urine Culture Stat Urine Microscopic Stat 08/16/22 20:25 Consult to General Surgery Stat 08/16/22 20:33 EKG-12 Lead Stat 08/16/22 20:41 Blood Culture Stat Acetaminophen (Acetaminophen 325 Mg Tablet) 650 mg PO Q6H PRN PRN Reason: Fever/Mild Pain (1-3) Atorvastatin Calcium (Atorvastatin 20 Mg Tablet) 80 mg PO BEDTIME NARCISO Last Admin: 08/16/22 23:00 Dose: 80 mg Documented By: RB Calcium Carbonate (Calcium Carbonate 500 Mg Tab) 1,000 mg PO Q4HR PRN PRN Reason: Dyspepsia Sodium Chloride (Normal Saline 0.9%) 1,000 mls @ 60 mls/hr IV CONT NARCISO Last Admin: 08/17/22 01:16 Dose: 60 mls/hr Documented By: RB Piperacillin Sod/Tazobactam (Sod 3.375 gm/ Sodium Chloride) 100 mls @ 25 mls/hr IV Q8H NARCISO Metronidazole (Flagyl) 500 mg in 100 mls @ 100 mls/hr IV Q6H NARCISO Morphine Sulfate (Morphine 2 Mg/Ml Inj) 4 mg IV Q2HR PRN PRN Reason: Pain, Moderate (4-6) Last Admin: 08/16/22 18:52 Dose: 4 mg Documented By: JASEN Naloxone HCl (Naloxone 0.4 Mg/Ml Vial) 0.2 mg IV Q2MIN PRN PRN Reason: Opiate Reversal Ondansetron HCl (Ondansetron 4 Mg Odt) 4 mg PO NOW PRN PRN Reason: Nausea And Vomiting Ondansetron HCl (Ondansetron 4 Mg/2 Ml Inj) 4 mg IV NOW PRN PRN Reason: Nausea And Vomiting Last Admin: 08/16/22 18:20 Dose: 4 mg Documented By: JASEN Ondansetron HCl (Ondansetron 4 Mg/2 Ml Inj) 4 mg IV Q4HR PRN PRN Reason: Nausea And Vomiting Oxycodone HCl (Oxycodone Ir 5 Mg Tablet) 5 mg PO Q3H PRN PRN Reason: Pain, Moderate (4-)10 Sennosides (Sennosides 8.6 Mg Tablet) 17.2 mg PO BEDTIME [facility] Discontinued Medications Piperacillin Sod/Tazobactam (Sod 4.5 gm/ Sodium Chloride) 100 mls @ 200 mls/hr IV NOW ONE Stop: 08/16/22 20:26 Last Infusion: 08/16/22 21:46 Dose: 0 mls/hr Documented By: Admin: 08/16/22 20:55 Dose: 200 mls/hr Documented By: RB Metronidazole (Flagyl) 500 mg in 100 mls @ 100 mls/hr IV NOW ONE Stop: 08/16/22 21:24 Last Infusion: 08/16/22 22:19 Dose: 0 mls/hr Documented By: Admin: 08/16/22 20:56 Dose: 100 mls/hr Documented By: RONNY Lidocaine HCl (Lidocaine 2% (Glydo) 6 Ml Gel) 6 ml TOP NOW ONE Stop: 08/16/22 18:45 Last Admin: 08/16/22 18:52 Dose: 6 ml Documented By: JASEN Non-Formulary Medication (Simvastatin) 40 mg PO BEDTIME NARCISO Last Admin: 08/16/22 22:32 Dose: Not Given Documented By: RONNY Vital Signs Vital signs: Vital Signs - 8 hr 08/16/22 17:46 08/16/22 18:15 08/16/22 18:15 Temperature 98.2 F Pulse Rate 72 82 Respiratory Rate 22 22 Blood Pressure 137/76 173/75 H Pulse Oximetry 97 94 Oxygen Delivery Method Room Air 08/16/22 18:30 08/16/22 18:30 08/16/22 19:00 Temperature Pulse Rate 77 Respiratory Rate 22 Blood Pressure 144/66 H 124/62 Pulse Oximetry 97 Oxygen Delivery Method 08/16/22 19:00 08/16/22 19:30 08/16/22 20:00 Temperature Pulse Rate 78 84 64 Respiratory Rate 22 22 22 Blood Pressure Pulse Oximetry 97 95 94 Oxygen Delivery Method 08/16/22 20:30 08/16/22 20:35 08/16/22 20:35 Temperature Pulse Rate 67 73 Respiratory Rate 24 21 Blood Pressure 151/63 H Pulse Oximetry 96 96 Oxygen Delivery Method 08/16/22 20:47 08/16/22 20:47 Temperature Pulse Rate 66 Respiratory Rate 24 Blood Pressure 129/60 Pulse Oximetry 98 Oxygen Delivery Method Medical Decision Making Medical Records Medical records reviewed: Yes I reviewed the patient's medical records. Lab Data Lab results reviewed: Yes I reviewed the patient's lab results. 08/16/22 18:20 08/16/22 18:20 Labs: Lab Results 08/16/22 08/16/22 08/16/22 Range/Units 18:20 18:20 19:00 WBC 17.2 H (4.5-11.0) X10^3/uL RBC 4.72 (4.5-5.9) X10^6/uL Hgb 14.9 (13.5-17.5) g/dL Hct 44.0 (41-53) % MCV 93.2 (80-100) fL MCH 31.5 (26-34) PG MCHC 33.8 (30-36) % RDW 13.8 (11.6-14.8) % Plt Count 199 (150-400) X10^3/uL Neut % (Auto) 85.7 H (50-75) % Lymph % (Auto) 6.8 L (25-40) % [place] % (Auto) 7.2 (3-14) % Eos % (Auto) 0.1 L (2-4) % Baso % (Auto) 0.2 (0-2) % Neut # (Auto) 90021 H (1883-0359) /uL Lymph # (Auto) 1200 (1576-7399) /uL [place] # (Auto) 1200 H (0-900) /uL Eos # (Auto) 0 (0-450) /uL Baso # (Auto) 0 (0-100) /uL Sodium 135 L (137-145) mmol/L Potassium 4.9 (3.4-5.1) mmol/L Chloride 97 L (98-107) mmol/L Carbon Dioxide 26 (22-32) mmol/L BUN 20 (9-20) mg/dL Creatinine 0.92 (0.66-1.25) mg/dL Estimated GFR > 60 (>60) mL/min BUN/Creatinine Ratio 21.7 (6-22) Glucose 131 H (80-110) mg/dL Calcium 9.3 (8.4-10.2) mg/dL Total Bilirubin 2.1 H (0.2-1.3) mg/dL AST 30 (17-59) IU/L ALT 22 (<50) IU/L Alkaline Phosphatase 54 (38-126) U/L Total Protein 8.4 H (6.3-8.2) g/dL Albumin 4.8 (3.5-5.0) g/dL Globulin 3.6 (1.7-4.1) g/dL Albumin/Globulin Ratio 1.3 (1.0-2.8) Lipase 41 (23-300) U/L Urine RBC 0-1/hpf (0-5/HPF) Urine WBC 0-1/hpf (0-5/HPF) Ur Squamous Epith Cells 0-1 /hpf (0-5/HPF) Urine Bacteria Occasional (0-1) (None) Urine Mucus 1+ H (Negative) Ur Culture Indicated? Cult not indicated Urine Dip Bedside Urine Glucose Negative Bedside Urine Bilirubin - Negative Bedside Urine Ketone - Negative Urine Specific [place] 1.015 Bedside Urine Occult Blood - Negative Bedside Urine pH 6.0 Bedside Urine Protein + 30 Bedside Urine Urobilinogen 0.2 Bedside Urine Nitrite - Negative Bedside Urine Leukocytes - Negative Esterase Point of care testing: Urine Dip Bedside Urine Glucose Negative Bedside Urine Bilirubin - Negative Bedside Urine Ketone - Negative Urine Specific [place] 1.015 Bedside Urine Occult Blood - Negative Bedside Urine pH 6.0 Bedside Urine Protein + 30 Bedside Urine Urobilinogen 0.2 Bedside Urine Nitrite - Negative Bedside Urine Leukocytes - Negative Esterase Imaging Data CT scan - abdomen/pelvis: Radiologist's Impression: [address] [address] [address] Scan Report Signed Patient: Alfonso Montejo MR#: [id number] : 1950 Acct:[id number] Age/Sex: 72 / M Date of Service: 08/16/22 Loc: ED Accession Number: [id number] ?? Procedure: CT abdomen pelvis w con Ordering Provider: Ambrocio Noriega D.O. PROCEDURE:? CT ABDOMEN PELVIS W CON ? INDICATIONS:? Bilateral lower abdominal pain ? TECHNIQUE:? After the administration of intravenous contrast, axial sections acquired from the lung bases to the pubic symphysis.? Coronal and sagittal reformats were performed.? For radiation dose reduction, the following was used:? automated exposure control, adjustment of mA and/or kV according to patient size.? ? COMPARISON:? [facility], CT, CT ABDOMEN PELVIS W CON, 07/23/2019, 11:38. ? FINDINGS:? Image quality:? Adequate.? ? Lung bases:? Unremarkable. ? ABDOMEN: Liver:? Unremarkable.? ? Gallbladder:? Absent? ? Biliary ducts:? Prominent extrahepatic and central intrahepatic ducts, Likely within normal limits for post cholecystectomy state Pancreas:? Unremarkable.? ? Spleen:? Unremarkable.? ? Adrenal Glands:? Unremarkable.? ? Kidneys and Ureters:? Unremarkable.? ? ? Stomach and Bowel:? Mild sigmoid predominant colonic diverticulosis.? Pronounced wall thickening with adjacent fat stranding present at the distal sigmoid colon.? There are adjacent foci of gas which are indeterminate for gas within diverticula and or sequela of micro perforation.? No large volume pneumoperitoneum or substantial peritoneal free fluid.? No drainable diverticular abscess identified.? Large periampullary duodenal diverticulum. ? Abdominal Nodes:? No retroperitoneal or mesenteric adenopathy by size criteria.? Vessels:? Aorta and inferior vena cava are normal in size.? ? PELVIS: Pelvic Organs:? Unremarkable CT appearance Bladder:? Decompressed by Vo catheter. Pelvic Nodes: No enlarged lymph nodes.? ? Bones:? Multilevel degenerative change of the visualized spine. ? ? IMPRESSION:? Findings compatible with acute sigmoid diverticulitis. There are adjacent foci of gas which are indeterminate for gas within diverticula and/or sequela of micro perforation.? No large volume pneumoperitoneum or substantial peritoneal free fluid.? No drainable diverticular abscess identified. As there can be overlap in the imaging appearance of diverticulitis and colonic carcinoma, correlation with recent colonoscopy or consideration of colonoscopy after completion of therapy may be helpful.? ? Dictated by: Yury Mccauley M.D. on 08/16/2022 at 19:55 ? ? Approved by: Yury Mccauley M.D. on 08/16/2022 at 20:04?? ECG Data Attestation: I personally reviewed and interpreted this ECG as follows: Interpretation: Atrial fibrillation Ventricular rate of 86 Normal axis Normal QRS Normal QTC Nonspecific ST T wave changes Repeat EKG Sinus rhythm Ventricular rate is 66 Normal axis Normal QRS Normal QTC No ST T wave changes MDM Narrative Medical decision making narrative: On his initial EKG patient was rate controlled atrial fibrillation. This did coincide with his exam is he did have a irregular rhythm on exam. Patient does not have a history of atrial fibrillation. He converted to sinus rhythm without specific intervention. Bladder scan shows just under 400 cc of urine. Given his urinary symptoms a Vo catheter was placed. The does not appear to be any specific indication of urinary tract infection. CT scan does show diverticulitis with potential microperforations. There is no abscess. This does fit his clinical presentation and I suspect that his bladder symptoms are related to this any irritation/inflammation because of the diverticulitis. Blood cultures were obtained. Urine cultures obtained. Antibiotics were administered. No indication for 30 cc/kilogram of fluid given the fact that he was not altered and was not hypotensive. I did discuss the case with Dr. Lo on-call for General surgery who recommended admission to the hospital under the medicine service for further evaluation. I did discuss the case with SAHRA Goss the night Hospital provider who will admit. I also discussed the findings of the CT scan with the patient and his at bedside. They expressed understanding and agreement as well. Discharge Plan Departure Patient Disposition: Admitted As Inpatient Clinical Impression: Diverticulitis, Atrial fibrillation, Acute urinary retention Admit Date/Time: 08/16/22 20:57 Admit Provider: Steph Goss
[2022-08-16] MEDS: ONDANSETRON 4 MG/2 ML INJ IV (18:20)
--- NOTE | 2022-08-16 18:24 | PC.NURSE ---
Pt states highest temp at home 100.8
[2022-08-16 18:31] LABS: Add Manual Diff / Slide Review NO; Basophils Absolute Auto 0 /uL (0-100); Basophils Percent Auto 0.2 % (0-2); Eosinophils Absolute Auto 0 /uL (0-450); Eosinophils Percent Auto 0.1 % (2-4); Hemoglobin 14.9 g/dL (13.5-17.5); Lymphocytes Absolute Auto 1200 /uL (1100-4500); Lymphocytes Percent Auto 6.8 % (25-40); Mean Corpuscular HGB Conc 33.8 % (30-36); Mean Corpuscular Hemoglobin 31.5 PG (26-34); Mean Corpuscular Volume 93.2 fL (80-100); Monocytes Absolute Auto 1200 /uL (0-900); Monocytes Percent Auto 7.2 % (3-14); Neutrophils Absolute Auto 14700 /uL (1500-7000); Neutrophils Percent Auto 85.7 % (50-75); Platelet Count 199 X10^3/uL (150-400); Red Blood Cell Count 4.72 X10^6/uL (4.5-5.9); Red Cell Distribution Width 13.8 % (11.6-14.8); White Blood Cell Count 17.2 X10^3/uL (4.5-11.0)
--- NOTE | 2022-08-16 18:44 | DI.CT.S_ITS ---
PROCEDURE: CT ABDOMEN PELVIS W CON INDICATIONS: Bilateral lower abdominal pain TECHNIQUE: After the administration of intravenous contrast, axial sections acquired from the lung bases to the pubic symphysis. Coronal and sagittal reformats were performed. For radiation dose reduction, the following was used: automated exposure control, adjustment of mA and/or kV according to patient size. COMPARISON: [facility], CT, CT ABDOMEN PELVIS W CON, 07/23/2019, 11:38. FINDINGS: Image quality: Adequate. Lung bases: Unremarkable. ABDOMEN: Liver: Unremarkable. Gallbladder: Absent Biliary ducts: Prominent extrahepatic and central intrahepatic ducts, Likely within normal limits for post cholecystectomy state Pancreas: Unremarkable. Spleen: Unremarkable. Adrenal Glands: Unremarkable. Kidneys and Ureters: Unremarkable. Stomach and Bowel: Mild sigmoid predominant colonic diverticulosis. Pronounced wall thickening with adjacent fat stranding present at the distal sigmoid colon. There are adjacent foci of gas which are indeterminate for gas within diverticula and or sequela of micro perforation. No large volume pneumoperitoneum or substantial peritoneal free fluid. No drainable diverticular abscess identified. Large periampullary duodenal diverticulum. Abdominal Nodes: No retroperitoneal or mesenteric adenopathy by size criteria. Vessels: Aorta and inferior vena cava are normal in size. PELVIS: Pelvic Organs: Unremarkable CT appearance Bladder: Decompressed by Vo catheter. Pelvic Nodes: No enlarged lymph nodes. Bones: Multilevel degenerative change of the visualized spine. IMPRESSION: Findings compatible with acute sigmoid diverticulitis. There are adjacent foci of gas which are indeterminate for gas within diverticula and/or sequela of micro perforation. No large volume pneumoperitoneum or substantial peritoneal free fluid. No drainable diverticular abscess identified. As there can be overlap in the imaging appearance of diverticulitis and colonic carcinoma, correlation with recent colonoscopy or consideration of colonoscopy after completion of therapy may be helpful. Dictated by: Yury Mccauley M.D. on 08/16/2022 at 19:55 Approved by: Yury Mccauley M.D. on 08/16/2022 at 20:04
[2022-08-16 18:47] LABS: Alanine Aminotransferase 22 IU/L (<50); Albumin 4.8 g/dL (3.5-5.0); Albumin Globulin Ratio 1.3 (1.0-2.8); Alkaline Phosphatase 54 U/L (38-126); Aspartate Aminotransferase 30 IU/L (17-59); BUN Creatinine Ratio 21.7 (6-22); Bilirubin Total 2.1 mg/dL (0.2-1.3); Blood Urea Nitrogen 20 mg/dL (9-20); Calcium 9.3 mg/dL (8.4-10.2); Carbon Dioxide 26 mmol/L (22-32); Chloride 97 mmol/L (98-107); Estimated Glomerular Filt Rate > 60 mL/min (>60); Globulin 3.6 g/dL (1.7-4.1); Glucose 131 mg/dL (80-110); Lipase 41 U/L (23-300); Sodium 135 mmol/L (137-145); Total Protein 8.4 g/dL (6.3-8.2)
[2022-08-16] MEDS: LIDOCAINE 2% (GLYDO) 6 ML GEL TOP (18:52)
[2022-08-16] MEDS: MORPHINE 2 MG/ML INJ 4 MG IV (18:52)
[2022-08-16 18:54] LABS: HEMOLYSIS 132 (0-50); Potassium 4.9 mmol/L (3.4-5.1)
[2022-08-16 19:33] LABS: Bacteria Urine Occasional (0-1); Culture Indicated Urine Cult Not Indicated; RBC Urine 0-1/HPF (0-5/HPF); Squamous Epithelial Cell Urine 0-1 /HPF (0-5/HPF); WBC Urine 0-1/HPF (0-5/HPF)
[2022-08-16 19:34] LABS: Mucus Urine 1+ (Negative)
[2022-08-16] MEDS: PIPERACILLIN/TAZO 4.5 GM in SODIUM CHLORIDE 0.9% 100 ML IV (20:55)
[2022-08-16] MEDS: metroNIDAZOLE 500 MG/100 ML PIGGYBACK 100 MG IV (20:56)
--- NOTE | 2022-08-16 21:19 | DI.ECHO.S_ITS ---
[facility] +---------+ : : [address] : : : : [id number] : : : : Phone: [phone]+ Echocardiogram Report + + :Name: CAESAR CACERES Study Date: 08/17/2022 Height: 74 in : :[facility] ReadingLocation: Weight: 180 lb : : Gender: Male BSA: 2.1 m2 : :: 1950 Age: 72 yrs BP: 105/52 mmHg: :Reason For Study: ATRIAL FIBRILLATION : :Ordering Physician: HAKAN, : :DIEUDONNE Performed By: Bonnie Lema : :Referring: DIEUDONNE MCCLENDON : + + Interpretation Summary The left ventricle is normal in size and wall thickness. The ejection fraction is estimated to be 60-65%. The right ventricle is normal in size and function. No significant valvular pathology seen. The IVC is dilated (diameter is greater than 2.1 cm) yet it collapses greater than 50% with a sniff. This suggests a right atrial pressure of 8 mm Hg. Procedure: A two-dimensional transthoracic echocardiogram with color flow and Doppler was performed. The study quality was technically adequate. There is no prior echocardiogram noted for this patient. The heart rate ranged between 55-70 bpm during the study. The patient was in normal sinus rhythm during the exam. The patient had frequent PACs during the exam. Left Ventricle: The left ventricle is normal in size and wall thickness. A false chord is noted (normal variant). The ejection fraction is estimated to be 60-65%. LV dyssynchrony during PACs. Otherwise no significant focal wall motion abnormalities. Diastolic parameters suggest probable normal left ventricular diastolic function and normal filling pressures. Right Ventricle: The right ventricle is normal in size and function. Atria: The left atrium is severely dilated. The right atrium is mildly dilated. There is no Doppler evidence for an interatrial shunt. Mitral Valve: There is mild mitral annular calcification. There is mild mitral regurgitation. Aortic Valve: The aortic valve is trileaflet. The aortic valve opens well. There is no aortic valve stenosis. There is trace aortic regurgitation. Tricuspid Valve: The tricuspid valve is normal. Pulmonary artery pressures cannot be estimated because of the lack of a measurable TR jet velocity but the IVC suggests a CVP of around 8 mmHg. There is mild tricuspid regurgitation. Pulmonic Valve: The pulmonic valve is not well seen, but is grossly normal. There is trace pulmonic regurgitation. Great Vessels: The aortic root is normal size. The ascending aorta could not be visualized. The IVC is dilated (diameter is greater than 2.1 cm) yet it collapses greater than 50% with a sniff. This suggests a right atrial pressure of 8 mm Hg. Pericardium/ Pleura There is a trivial pericardial effusion noted. There are no echocardiographic indications of cardiac tamponade. There is no pleural effusion. MMode/2D Measurements & Calculations LVIDd: 5.2 cm LVOT diam: 2.2 cm LVIDs: 3.5 cm Ao root diam: 3.2 cm FS: 33.6 % Ao Arch Diam (Prox Trans): 2.6 cm IVSd: 0.77 cm LVPWd: 0.92 cm LV ozuna. diameter/BSA (cm/m^2): 2.5 LV sys. diameter/BSA (cm/m^2): 1.7 LA A2 area: 29.4 cm2 RA long axis: 6.7 cm LA A4 area: 23.6 cm2 RA area: 24.9 cm2 LA length (vol): 5.9 cm RA vol: 78.9 ml LA vol: 100.1 ml RA : 38.0 ml/m2 LA vol index: 48.2 ml/m2 IVC diam: 2.4 cm RVD1 (basal): 3.7 cm RVD2 (mid): 2.8 cm TAPSE: 2.4 cm Doppler Measurements & Calculations Ao V2 max: 153.0 cm/sec LVOT Max Pedro Luis: 120.9 cm/sec Ao V2 mean: 111.2 cm/sec LV V1 max P.8 mmHg Ao max P.4 mmHg LV V1 VTI: 25.1 cm Ao mean P.6 mmHg TALISHA(I,D): 2.9 cm2 Ao V2 VTI: 33.7 cm TALISHA(V,D): 3.1 cm2 sev ratio: 0.74 TALISHA indexed to BSA (cm^2/m^2): 1.4 MV E max pedro luis: 78.9 cm/sec PA V2 max: 157.9 cm/sec MV A max pedro luis: 56.5 cm/sec PA V2 mean: 105.6 cm/sec MV E/A: 1.4 PA mean P.3 mmHg Med Peak E' Pedro Luis: 11.2 cm/sec PA pr(Accel): 19.1 mmHg E/E' med: 7.1 Lat Peak E' Pedro Luis: 11.7 cm/sec E/E' lat: 6.7 E/e' average: 6.9 MV dec time: 0.21 sec SV(OT): 97.3 ml Reading Physician:12:12 PM
--- NOTE | 2022-08-16 21:32 | DI.US.S_ITS ---
PROCEDURE: US RENAL COMPLETE INDICATIONS: URINARY RETENTION TECHNIQUE: Real-time scanning was performed of the kidneys and bladder, with image documentation. COMPARISON: [facility], CT, CT ABDOMEN PELVIS W CON, 08/16/2022, 19:04. FINDINGS: Kidneys: Kidneys are normal in size. Right kidney measures 10.6 cm long; left kidney measures 10.7 cm long. Right renal cortical thickness is 1.6 cm; left renal cortical thickness is 1.5 cm. Renal cortical echotexture is normal. No hydronephrosis or nephrolithiasis. No suspicious solid mass lesions. Bladder: Pre-void bladder volume is 38 mL. Ureteral jets are not seen. Vo catheter is in place. Miscellaneous: No free pelvic fluid. IMPRESSION: No hydronephrosis. Dictated by: John Pabon M.D. on 08/17/2022 at 9:26 Approved by: oJhn Pabon M.D. on 08/17/2022 at 9:28
--- NOTE | 2022-08-16 21:34 | P.HP_ITS ---
History of Present Illness History of Present Illness Date Patient Seen: 08/16/22 Time Patient Seen: 21:34 Chief complaint: lower abd pain Narrative: Alfonso Montejo is a 72-year-old male with a medical history benign colon polyps mixed hyperlipidemia chronic low back left, ED, seborrheic who presented to the ED complaining of bilateral lower abdominal pain, and urinary hesitancy, and just feeling poorly over the last several days. Patient only takes simvastatin for his cholesterol no other medications,his last colon was 5 years ago. Patient is in extremely fit male who exercises 4+ more days a week. When the patient presented to the ED was found initially to be in atrial fibrillation, rate controlled at 80, with no history of AFib, the patient vomited in ED had not been vomiting prior to arrival. On admit patient says that all his symptoms have resolved at this time: denies chest pain, shortness in breath, headache, changes in vision, difficulty swallowing, speech impairment, weakness, numbness, tingling, difficulty with ambulation, recent falls, head injury, LOC, fever, body aches, chills, cough, recent exposure to illness, urinary incontinence/retention, dysuria, frequency, urgency, hematuria, bowel changes, constipation, incontinence, melena, rashes, recent changes to medication, illness, injury, or trauma. Patient also denies any history of BPH or enlarged prostate or any other urinary issues. Admit 98.2, 129/60, patient converted back to sinus rhythm with a rate of 66, slightly tachypneic 24, O2 saturation 98% on room air. WBC 17.2, neut 14,700, mono 1200, glucose 131, bili 2.1, urinalysis initially was negative urine cultur e is pending, sofa: 1. Abdomen pelvis CT demonstrated acute sigmoid diverticulitis with possible micro perforations. Patient also was found to have a postvoid residual volume of 420cc, a Vo was placed urine was found to be dark sherif in color. Patient admitted for new onset atrial fibrillation rate controlled, acute sigmoid diverticulitis, and acute new onset urinary retention. Patient History Medical History Asthma Chronic low back pain Erectile dysfunction Family history of prostate cancer Hearing loss History of colonic polyps Hypercholesteremia Mixed hyperlipidemia Obstructive sleep apnea (~1999) Sciatic nerve pain Seborrheic dermatitis Tinnitus Surgical History Anesthesia History of cholecystectomy (~2019) Hx of tonsillectomy (~1954) Otosclerosis (~1977) Family & Social History Family History Father Congestive heart failure Mother Dementia Sister Joint replaced Sister Joint replaced Social History: household members spouse Safety & Behavioral: Feels Safe in Current Yes Environment Been Physically Hurt or No Threatened By a Person Tobacco & Substance use: Smoking Status Never smoker alcohol intake current alcohol intake frequency 0-2 drinks per day Substance Use Type does not use Meds Home Medications and Allergies Home Medications Medication Instructions Recorded Confirmed Type cholecalciferol (vitamin D3) 25 1,000 unit PO DAILY 07/23/19 05/25/22 History mcg (1,000 unit) tablet (Vitamin D3) simvastatin 40 mg tablet 40 mg PO BEDTIME #90 tabs 05/25/22 05/25/22 Rx Allergies Allergy/AdvReac Type Severity Reaction Status Date / Time No Known Allergies Allergy Verified 05/25/22 08:57 Review of Systems Review of Systems Narrative: All 12 point systems reviewed with the patient and are negative except otherwise documented. Exam Vital Signs (past 8 hours): - 08/16/22 17:46 08/16/22 18:15 08/16/22 18:15 Temperature 98.2 F Pulse Rate 72 82 Respiratory Rate 22 22 Blood Pressure 137/76 173/75 H Pulse Oximetry 97 94 Oxygen Delivery Method Room Air 08/16/22 18:30 08/16/22 18:30 08/16/22 19:00 Temperature Pulse Rate 77 Respiratory Rate 22 Blood Pressure 144/66 H 124/62 Pulse Oximetry 97 Oxygen Delivery Method 08/16/22 19:00 08/16/22 19:30 08/16/22 20:00 Temperature Pulse Rate 78 84 64 Respiratory Rate 22 22 22 Blood Pressure Pulse Oximetry 97 95 94 Oxygen Delivery Method 08/16/22 20:30 08/16/22 20:35 08/16/22 20:35 Temperature Pulse Rate 67 73 Respiratory Rate 24 21 Blood Pressure 151/63 H Pulse Oximetry 96 96 Oxygen Delivery Method 08/16/22 20:47 08/16/22 20:47 Temperature Pulse Rate 66 Respiratory Rate 24 Blood Pressure 129/60 Pulse Oximetry 98 Oxygen Delivery Method Oxygen Delivery Method Room Air Narrative Exam Narrative: General: Patient is a well-developed, well-nourished in no distress at this time. HEENT: Normocephalic, atraumatic, extraocular muscles intact, oral pharynx is clear and mucous membranes are moist. Neck is supple and symmetric, trachea is midline, no adenopathy, no thyroid enlargement, nontender, no masses palpated. Negative for JVD Chest: Normal AP diameter and contour without kyphoscoliosis, no nasal flaring, retractions, or tachypneic labored Lungs: Auscultation of all lung hernandez are clear without adventitious sounds, w heezes, rhonchi, or rales. Cardio: S1 & S2 with regular rate and rhythm without murmur, rubs, or gallops, no carotid bruit, no cardiac pulsations present. Abdomen: Soft nontender, negative for organomegaly, or masses. Bowel sounds are present in all 4 quadrants without guarding or rebound, no CVA tenderness. Vo in place Musculoskeletal: Muscle strength and tone are equal within normal limits, no deformity, crepitus, effusions, cyanosis, clubbing or edema present. Full range of motion intact radial and pedal pulses are normal. Skin: Warm dry and intact without rashes, ulcerations or petechiae. Neuro: Alert and orientated x3, strength is +5/5 in all extremities, sensation to touch intact, no gross deficits noted of cranial nerves. Psych: Patient has a well-kept appearance, appropriate affect, mental status attitude thought context and judgment are appropriate for age. Objective Labs 08/16/22 18:20 08/16/22 18:20 Labs: Laboratory Results - last 24 hr 08/16/22 08/16/22 08/16/22 18:20 18:20 19:00 WBC 17.2 H RBC 4.72 Hgb 14.9 Hct 44.0 MCV 93.2 MCH 31.5 MCHC 33.8 RDW 13.8 Plt Count 199 Neut % (Auto) 85.7 H Lymph % (Auto) 6.8 L [place] % (Auto) 7.2 Eos % (Auto) 0.1 L Baso % (Auto) 0.2 Neut # (Auto) 17022 H Lymph # (Auto) 1200 [place] # (Auto) 1200 H Eos # (Auto) 0 Baso # (Auto) 0 Sodium 135 L Potassium 4.9 Chloride 97 L Carbon Dioxide 26 BUN 20 Creatinine 0.92 Estimated GFR > 60 BUN/Creatinine Ratio 21.7 Glucose 131 H Calcium 9.3 Total Bilirubin 2.1 H AST 30 ALT 22 Alkaline Phosphatase 54 Total Protein 8.4 H Albumin 4.8 Globulin 3.6 Albumin/Globulin Ratio 1.3 Lipase 41 Urine RBC 0-1/hpf Urine WBC 0-1/hpf Ur Squamous Epith Cells 0-1 /hpf Urine Bacteria Occasional (0-1) Urine Mucus 1+ H Ur Culture Indicated? Cult not indicated Assessment & Plan Assessment & Plan narrative: Alfonso Montejo is a 72-year-old male with a medical history benign colon polyps mixed hyperlipidemia chronic low back Pain W/sciatica left, ED, seborrheic dermatitis who presented to the ED complaining of bilateral lower abdominal pain, and urinary hesitancy, and just feeling poorly over the last several days. Patient admitted for new onset atrial fibrillation rate controlled, acute sigmoid diverticulitis, and acute new onset urinary retention. Patient admitted for observation for IV fluids antibiotics, cultures pending, monitoring for recurrence of AFib, rate control, echo, ultrasound to evaluate for any urinary obstruction/prostate issues, and surgical consult Dr. Lo. 1. Atrial fibrillation, acute new onset, rate controlled, present on admission- resolved -quite likely possible that atrial fibrillation is a sequelae to the acute sigmoid diverticulitis infection. -Admit 98.2, 129/60, patient converted back to sinus rhythm with a rate of 66, slightly tachypneic 24, O2 saturation 98% on room air. -I personally reviewed EKG atrial fibrillation rate [address]/T- wave abnormalities, this is a significant change from EKG in 2020. -patient on tele, boarding in the ED -echo ordered . -BNP 1530-though patient appears severely dehydrated and volume depleted. TSH/T4-WNL, Trop Neg will trend x3. -provided patient education regarding atrial fibrillation recommend up-to-date patient handout on discharge, patient to follow-up with his PCP for referral to a family and divorce legal assistant for outpatient management. -holding anticoagulation in the setting of infection and possible perforation, Risk of bleeding. 2. Acute sigmoid diverticulitis with possible microperforation, acute, present on admission History of benign colon polyps. Last colonoscopy approximately 5 years ago. Was scheduled for COLON for this year. - Abdomen pelvis CT demonstrated acute sigmoid diverticulitis with possible micro perforations. -WBC 17.2, neut 14,700, mono 1200, glucose 131, bili 2.1, urinalysis initially was negative urine culture is pending, sofa:1. -pain and antiemetic management -continue Zosyn and Flagyl initiated in the ED -Dr. Lo to consult -recommend patient receive handout from up-to-date on diverticulitis, and follow-up outpatient with GI for colonoscopy. 3. Leukocytosis, neutrophilic, acute, likely secondary to acute diverticulitis, present on admission -WBC 17.2, neut 14,700, mono 1200, glucose 131, bili 2.1, urinalysis initially was negative urine culture is pending, sofa:1. -trend, check inflammatory markers lactate and procalcitonin in a.m. -NS@ 60 cc/HR 4. Urinary retention, postvoid, acute new onset, present on admission -in ED patient had a postvoid residual greater than 420-a catheter was placed. -patient denies any previous history of BPH prostate issues or urinary retention. -urinalysis was unremarkable, urine culture pending - PSA 0.268 -ultrasound to evaluate for possible urinary obstruction -urine culture pending rule out infection -patient will require postvoid residual trial starting tomorrow x 3 <150cc for discharge -if patient fails postvoid residual trial, PCP referral to follow up with Urology for further evaluate -if once infectious processes resolved, and urinary obstruction/prostate issues have been ruled out I recommend PCP referral for evaluation by neurology- as initial presenting symptoms of spinal cord compression is urinary retention. Hx of Low back pain, chronic, with sciatica, left 5. Hyperlipidemia, mixed, chronic, present on admission -Lipitor (Hospital)will be substituted for patient's simvastatin 6. Malnutrition, mild, , acute on chronic, present on admission -as evidence by BMI 23.1 -patient's malnutrition places them at high risk for medical and surgical complications in relation to acute illness/chronic illness. This increases the difficulty in complexity of medical management and increases the chances poor outcomes such as mortality and morbidity as well as impaired wound healing, and immune suppression. -dietary consult ordered to evaluate and implement steps to improve caloric intake and nutrition. Code status:Full Surrogate decision maker: Ya HERNANDEZ PCR:Negtaive DVT/VTE prophylaxis: Holding medication due to bleeding risk, SCDs only Disposition: Patient admitted for observation, suspect that he likely will be changed to inpatient based on his status after 24 hours on antibiotics, patient will be monitored for reoccurrence of AFib, rate control, IV fluids and antibiotics, evaluation by surgery determine if he will complete a colonoscopy or not, also echo and ultrasound to evaluate for any urinary obstruction including prostate. Expected length of stay initially less than 2 midnights. I have utilized all available immediate resources to obtain, update, or review the patient's current medications. I confirmed that the patient's advanced care plan is present, Code status is documented and/or surrogate decision maker is listed in the patient's medical record. I have personally reviewed patient's chart notes from PCP, specialists, diagnostic imaging, and laboratory results. Time Spent With Patient Critical Care time: I spent a total of [] minutes of critical care time on this patient's care today; this time is exclusive of procedural time.
[2022-08-16 22:07] LABS: PTT Partial Thromboplastin Tim 29 SECONDS (26-36)
[2022-08-16 22:13] LABS: INR 1.4 (0.9-1.3); Prothrombin Time 16.1 SECONDS (10.1-12.7)
[2022-08-16 22:18] LABS: NT-proBNP (BNP-Adult 18+) 1530 pg/mL (<125)
[2022-08-16 22:20] LABS: Troponin I < 0.012 ng/mL (0.01-0.034)
[2022-08-16 22:24] LABS: Magnesium 1.8 mg/dL (1.6-2.3)
[2022-08-16 22:55] LABS: Ethanol (ETOH) < 10 mg/dL; Thyroid Stimulating Hormone 1.85 uIU/mL (0.47-4.68)
[2022-08-16] MEDS: ATORVASTATIN 20 MG TABLET 80 MG PO (23:00)
[2022-08-16 23:33] LABS: Free T4, Direct Thyroxine 1.24 ng/dL (0.78-2.19)
[2022-08-17] VITALS (18 sets, daily range): BP systolic 105–115; BP diastolic 52–56; PULSE 55–68; RESP 18–31; TEMP 36.5; O2SAT 91–96
[2022-08-17] MEDS: SODIUM CHLORIDE 0.9% 1,000 ML 60 ML IV (01:16)
[2022-08-17 02:29] LABS: Prostate Specific Antigen 0.268 ng/mL (0.10-4.00)
[2022-08-17] MEDS: PIPERACILLIN/TAZO 3.375 GM in SODIUM CHLORIDE 0.9% 100 ML IV ×2 (03:51→10:21)
[2022-08-17] MEDS: metroNIDAZOLE 500 MG/100 ML PIGGYBACK 100 MG IV ×2 (03:52→08:27)
[2022-08-17 03:57] LABS: Add Manual Diff / Slide Review NO; Basophils Absolute Auto 0 /uL (0-100); Basophils Percent Auto 0.1 % (0-2); Eosinophils Absolute Auto 0 /uL (0-450); Eosinophils Percent Auto 0.1 % (2-4); Hemoglobin 12.8 g/dL (13.5-17.5); Lymphocytes Absolute Auto 1300 /uL (1100-4500); Lymphocytes Percent Auto 9.3 % (25-40); Mean Corpuscular HGB Conc 33.7 % (30-36); Mean Corpuscular Hemoglobin 31.1 PG (26-34); Mean Corpuscular Volume 92.1 fL (80-100); Monocytes Absolute Auto 900 /uL (0-900); Monocytes Percent Auto 6.6 % (3-14); Neutrophils Absolute Auto 11900 /uL (1500-7000); Neutrophils Percent Auto 83.9 % (50-75); Platelet Count 169 X10^3/uL (150-400); Red Blood Cell Count 4.12 X10^6/uL (4.5-5.9); Red Cell Distribution Width 13.9 % (11.6-14.8); White Blood Cell Count 14.2 X10^3/uL (4.5-11.0)
[2022-08-17 04:09] LABS: Lactate (Lactic Acid) 0.8 mmol/L (0.7-2.1)
[2022-08-17 04:10] LABS: BUN Creatinine Ratio 18.1 (6-22); Blood Urea Nitrogen 19 mg/dL (9-20); Calcium 8.4 mg/dL (8.4-10.2); Carbon Dioxide 25 mmol/L (22-32); Chloride 101 mmol/L (98-107); Cholesterol 129 mg/dL (140-199); Estimated Glomerular Filt Rate > 60 mL/min (>60); Glucose 122 mg/dL (80-110); HDL Cholesterol 55 mg/dL (40-60); HEMOLYSIS < 15 (0-50); LDL Cholesterol Calculated 66 mg/dL (<100); Potassium 4.3 mmol/L (3.4-5.1); Sodium 133 mmol/L (137-145); Triglycerides 42 mg/dL (35-150)
[2022-08-17 04:21] LABS: Troponin I < 0.012 ng/mL (0.01-0.034)
[2022-08-17 04:26] LABS: Procalcitonin 0.88 ng/mL (<0.5)
[2022-08-17] MEDS: PANTOPRAZOLE 40 MG VIAL 20 MG IV (08:27)
--- NOTE | 2022-08-17 09:02 | PC.NURSE ---
Received report on patient. Resting in bed NAD receiving renal US. AAOx3, NSR 62 BP 115/55. Breakfast given. Pt with small amount of diarrhea. Ambulatory to bathroom and linens changed. ABX infusing per order. Original order to DC watt at 9am. Dr Pérez rounding and ordered to keep it in place and attach leg bag. Reports minimal abd px at this time and appears in good color. Plan to DC home later today after US results.
--- NOTE | 2022-08-17 09:31 | P.DS_ITS ---
History of Present Illness History of Present Illness Date Patient Seen: 08/17/22 Time Patient Seen: 09:31 Chief complaint: lower abd pain Narrative: Per admitting provider, Alfonso Montejo is a 72-year-old male with a medical history benign colon polyps mixed hyperlipidemia chronic low back left, ED, seborrheic who presented to the ED complaining of bilateral lower abdominal pain, and urinary hesitancy, and just feeling poorly over the last several days. Patient only takes simvastatin for his cholesterol no other medications,his last colon was 5 years ago. Patient is in extremely fit male who exercises 4+ more days a week. When the patient presented to the ED was found initially to be in atrial fibrillation, rate controlled at 80, with no history of AFib, the patient vomited in ED had not been vomiting prior to arrival. On admit patient says that all his symptoms have resolved at this time: denies chest pain, shortness in breath, headache, changes in vision, difficulty swallowing, speech impairment, weakness, numbness, tingling, difficulty with ambulation, recent falls, head injury, LOC, fever, body aches, chills, cough, recent exposure to illness, urinary incontinence/retention, dysuria, frequency, urgency, hematuria, bowel changes, constipation, incontinence, melena, rashes, recent changes to medication, illness, injury, or trauma. Patient also denies any history of BPH or enlarged prostate or any other urinary issues. Admit 98.2, 129/60, patient converted back to sinus rhythm with a rate of 66, slightly tachypneic 24, O2 saturation 98% on room air. WBC 17.2, neut 14,700, mono 1200, glucose 131, bili 2.1, urinalysis initially was negative urine culture is pending, sofa: 1. Abdomen pelvis CT demonstrated acute sigmoid diverticulitis with possible micro perforations. Patient also was found to have a postvoid residual volume of 420cc, a Watt was placed urine was found to be dark sherif in color. Patient admitted for new onset atrial fibrillation rate controlled, acute sigmoid diverticulitis, and acute new onset urinary retention. Discharge Providers Provider Date of admission: 08/16/22 20:57 Discharge Date: 08/17/22 Primary care physician: Gabriel Nguyen MD Consults: 08/16/22 20:25 Consult to General Surgery Stat Comment: Consulting Provider: Dora Lo Reason for consultation: Diverticulitis Has provider been notified: Yes 08/16/22 21:28 Consult to Dietitian, Adult Routine Comment: Reason For Exam: BMI 23.1 Consult to Discharge Planning Routine Comment: Consult to Physician Routine Comment: Consulting Provider: Dora Lo Reason for consultation: Acute sigmoid diverticulitis with possible microperforation Has provider been notified: Yes Discharge provider: Maykel Pérez DO Summary Hospital Course Discharge Diagnosis: 1. Atrial fibrillation, acute new onset, rate controlled, present on admission- resolved 2. Acute sigmoid diverticulitis with possible microperforation, acute, present on admission 3. Urinary retention, acute new onset, present on admission, with history of BPH 4. Hyperlipidemia, mixed, chronic, present on admission Hospital Course: Alfonso Montejo is a 72-year-old male with a medical history benign colon polyps mixed hyperlipidemia chronic low back Pain W/sciatica left, ED, seborrheic dermatitis who presented to the ED complaining of bilateral lower abdominal pain, and urinary hesitancy, and just feeling poorly over the last several days. ? Patient admitted for new onset atrial fibrillation rate controlled, acute sigmoid diverticulitis, and acute new onset urinary retention.? Patient admitted for observation and initiation of antibiotics with possible microperforation noted on CT. Patient was found to be in atrial fibrillation in the emergency room, but converted quickly with administration of fluids, no rate control agents were needed. Given this occurred in the setting of diverticulitis, it is unclear if anticoagulation is necessary. Would recommend possible holter monitor as an outpatient to help elucidate if this was incidentally found. Discussed risks and benefits at this time, shared decision making with the patient and decision made not to start anticoagulation at this time but it is recommended to start baby aspirin after completion of his antibiotics. Echocardiogram was unremarkable. Shortly after admission, he was able to tolerate a diet with minimal abdominal pain and improvement in his laboratory evaluation (leukocytosis). 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 I expect that his acute urinary retention is a result of underlying BPH with surrounding inflammation from his diverticulitis. We discussed possible trial of void prior to discharge, but after risks and benefit discussion patient elected for discharge home with watt bag and PCP follow up with possible urology referral for additional management. He will complete 14 day course of antibiotics at home. No other medication changes are recommended at the time of discharge. Time Spent with Patient Time spent: Greater than 30 minutes Exam Vital Signs (past 8 hours): - 08/17/22 02:00 08/17/22 03:00 08/17/22 04:00 Temperature Pulse Rate 66 64 62 Respiratory Rate 22 21 20 Blood Pressure 110/56 L 112/56 L 105/52 L Pulse Oximetry 94 93 94 Oxygen Delivery Method Room Air Room Air Room Air 08/17/22 06:00 08/17/22 06:30 08/17/22 07:00 Temperature Pulse Rate 66 61 57 L Respiratory Rate 26 H 22 21 Blood Pressure Pulse Oximetry 91 93 94 Oxygen Delivery Method 08/17/22 07:30 08/17/22 08:00 08/17/22 08:01 Temperature Pulse Rate 59 L 60 Respiratory Rate 21 22 Blood Pressure 115/55 L Pulse Oximetry 94 95 Oxygen Delivery Method 08/17/22 08:01 08/17/22 08:30 Temperature 97.7 F Pulse Rate 61 61 Respiratory Rate 31 H 19 Blood Pressure Pulse Oximetry 96 95 Oxygen Delivery Method Oxygen Delivery Method Room Air Narrative Exam Narrative: General: Patient is a well-developed, well-nourished in no distress at this time. HEENT: Normocephalic, atraumatic, extraocular muscles intact, oral pharynx is clear and mucous membranes are moist Chest: Normal AP diameter and contour without kyphoscoliosis, no nasal flaring, retractions, or tachypneic labored Lungs: Auscultation of all lung hernandez are clear without adventitious sounds, wheezes, rhonchi, or rales. Cardio: S1 & S2 with regular rate and rhythm without murmur, rubs, or gallops Abdomen: S, minimal tenderness RLQ, no distension Skin: Warm dry and intact without rashes, ulcerations or petechiae. Neuro: Alert and orientated x3, strength is +5/5 in all extremities, sensation to touch intact, no gross deficits noted of cranial nerves. Psych: Patient has a well-kept appearance, appropriate affect, mental status attitude thought context and judgment are appropriate for age. Objective Labs 08/17/22 03:40 08/17/22 03:40 Labs: Laboratory Results - last 24 hr 08/16/22 08/16/22 08/16/22 18:20 18:20 19:00 WBC 17.2 H RBC 4.72 Hgb 14.9 Hct 44.0 MCV 93.2 MCH 31.5 MCHC 33.8 RDW 13.8 Plt Count 199 Neut % (Auto) 85.7 H Lymph % (Auto) 6.8 L [place] % (Auto) 7.2 Eos % (Auto) 0.1 L Baso % (Auto) 0.2 Neut # (Auto) 07385 H Lymph # (Auto) 1200 [place] # (Auto) 1200 H Eos # (Auto) 0 Baso # (Auto) 0 PT INR APTT Sodium 135 L Potassium 4.9 Chloride 97 L Carbon Dioxide 26 BUN 20 Creatinine 0.92 Estimated GFR > 60 BUN/Creatinine Ratio 21.7 Glucose 131 H Lactate Calcium 9.3 Magnesium Total Bilirubin 2.1 H AST 30 ALT 22 Alkaline Phosphatase 54 Troponin I NT-Pro-B Natriuret Pep Total Protein 8.4 H Albumin 4.8 Globulin 3.6 Albumin/Globulin Ratio 1.3 Triglycerides Cholesterol LDL Cholesterol, Calc HDL Cholesterol Lipase 41 Prostate Specific Ag Procalcitonin TSH Free T4 Urine RBC 0-1/hpf Urine WBC 0-1/hpf Ur Squamous Epith Cells 0-1 /hpf Urine Bacteria Occasional (0-1) Urine Mucus 1+ H Ur Culture Indicated? Cult not indicated Ethyl Alcohol 08/16/22 08/16/22 08/16/22 21:45 21:45 21:45 WBC RBC Hgb Hct MCV MCH MCHC RDW Plt Count Neut % (Auto) Lymph % (Auto) [place] % (Auto) Eos % (Auto) Baso % (Auto) Neut # (Auto) Lymph # (Auto) [place] # (Auto) Eos # (Auto) Baso # (Auto) PT 16.1 H INR 1.4 H APTT Sodium Potassium Chloride Carbon Dioxide BUN Creatinine Estimated GFR BUN/Creatinine Ratio Glucose Lactate Calcium Magnesium 1.8 Total Bilirubin AST ALT Alkaline Phosphatase Troponin I NT-Pro-B Natriuret Pep Total Protein Albumin Globulin Albumin/Globulin Ratio Triglycerides Cholesterol LDL Cholesterol, Calc HDL Cholesterol Lipase Prostate Specific Ag Procalcitonin TSH 1.85 Free T4 1.24 Urine RBC Urine WBC Ur Squamous Epith Cells Urine Bacteria Urine Mucus Ur Culture Indicated? Ethyl Alcohol < 10 08/16/22 08/16/22 08/16/22 21:45 21:45 21:45 WBC RBC Hgb Hct MCV MCH MCHC RDW Plt Count Neut % (Auto) Lymph % (Auto) [place] % (Auto) Eos % (Auto) Baso % (Auto) Neut # (Auto) Lymph # (Auto) [place] # (Auto) Eos # (Auto) Baso # (Auto) PT INR APTT 29 Sodium Potassium Chloride Carbon Dioxide BUN Creatinine Estimated GFR BUN/Creatinine Ratio Glucose Lactate Calcium Magnesium Total Bilirubin AST ALT Alkaline Phosphatase Troponin I < 0.012 NT-Pro-B Natriuret Pep 1530 H Total Protein Albumin Globulin Albumin/Globulin Ratio Triglycerides Cholesterol LDL Cholesterol, Calc HDL Cholesterol Lipase Prostate Specific Ag Procalcitonin TSH Free T4 Urine RBC Urine WBC Ur Squamous Epith Cells Urine Bacteria Urine Mucus Ur Culture Indicated? Ethyl Alcohol 08/16/22 08/17/22 08/17/22 21:45 03:40 03:40 WBC 14.2 H RBC 4.12 L Hgb 12.8 L Hct 38.0 L MCV 92.1 MCH 31.1 MCHC 33.7 RDW 13.9 Plt Count 169 Neut % (Auto) 83.9 H Lymph % (Auto) 9.3 L [place] % (Auto) 6.6 Eos % (Auto) 0.1 L Baso % (Auto) 0.1 Neut # (Auto) 78327 H Lymph # (Auto) 1300 [place] # (Auto) 900 Eos # (Auto) 0 Baso # (Auto) 0 PT INR APTT Sodium Potassium Chloride Carbon Dioxide BUN Creatinine Estimated GFR BUN/Creatinine Ratio Glucose Lactate Calcium Magnesium Total Bilirubin AST ALT Alkaline Phosphatase Troponin I < 0.012 NT-Pro-B Natriuret Pep Total Protein Albumin Globulin Albumin/Globulin Ratio Triglycerides Cholesterol LDL Cholesterol, Calc HDL Cholesterol Lipase Prostate Specific Ag 0.268 Procalcitonin TSH Free T4 Urine RBC Urine WBC Ur Squamous Epith Cells Urine Bacteria Urine Mucus Ur Culture Indicated? Ethyl Alcohol 08/17/22 08/17/22 08/17/22 03:40 03:40 03:40 WBC RBC Hgb Hct MCV MCH MCHC RDW Plt Count Neut % (Auto) Lymph % (Auto) [place] % (Auto) Eos % (Auto) Baso % (Auto) Neut # (Auto) Lymph # (Auto) [place] # (Auto) Eos # (Auto) Baso # (Auto) PT INR APTT Sodium 133 L Potassium 4.3 Chloride 101 Carbon Dioxide 25 BUN 19 Creatinine 1.05 Estimated GFR > 60 BUN/Creatinine Ratio 18.1 Glucose 122 H Lactate 0.8 Calcium 8.4 Magnesium Total Bilirubin AST ALT Alkaline Phosphatase Troponin I NT-Pro-B Natriuret Pep Total Protein Albumin Globulin Albumin/Globulin Ratio Triglycerides 42 Cholesterol 129 L LDL Cholesterol, Calc 66 HDL Cholesterol 55 Lipase Prostate Specific Ag Procalcitonin 0.88 H TSH Free T4 Urine RBC Urine WBC Ur Squamous Epith Cells Urine Bacteria Urine Mucus Ur Culture Indicated? 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 You had some urinary retention, recommend we leave the catheter in place, follow up with primary care provider for possible removal or urology follow up in 1-2 weeks after inflammation from the diverticulitis has improved. Please complete 2 weeks of antibiotics at home. You were also found to have atrial fibrillation, but this may have been in the setting of an acute infection. No medications are recommended at this time, but please follow up with primary care provider for further evaluation including possible medications or ultrasound of your heart. After completion of your antibiotics, consider starting a baby aspirin for afib. Discharge orders & Medications Prescriptions: New metronidazole 500 mg tablet 500 mg PO Q8H 14 Days Qty: 42 0RF ciprofloxacin HCl 500 mg tablet 500 mg PO Q12H 14 Days Qty: 28 0RF Continued simvastatin 40 mg tablet 40 mg PO BEDTIME Qty: 90 3RF cholecalciferol (vitamin D3) [Vitamin D3] 25 mcg (1,000 unit) Tablet 1,000 unit PO DAILY Follow up/Referrals: Gabriel Nguyen MD [Primary Care Provider] - Diet/Activity/Treatments Diet: Diet as Tolerated Activity: As tolerated Visit Report/Discharge Packet Stand Alone Forms: Patient Portal/API, Stroke Signs & Symptoms Discharge Data Primary Care Provider: Gabriel Nguyen V
[2022-08-17 10:09] LABS: Troponin I < 0.012 ng/mL (0.01-0.034)
--- NOTE | 2022-08-17 10:55 | PC.NURSE ---
DC ordered. IV's discontinued. Instructions given and pt educated on use of leg bag for catheter. ECHO arrived post DC education and IV removal. Pt staying for ECHO and will DC after.
== END 2022-08-17 11:29 | disposition home or self-care (01) | DRG 392 ==
LOC: ED 20:57 → AC 23:26
PROVIDERS: Emergency Medicine; Admitting Provider Nurse Practitioner Family; Emergency Provider Emergency Medicine; PCP Internal Medicine; Referring Provider Emergency Medicine; Visit Provider Nurse Practitioner Family
DX: K57.20 Diverticulitis of large intestine with perforation and abscess without bleeding (principal); E44.1 Mild protein-calorie malnutrition; I48.91 Unspecified atrial fibrillation; Z68.23 Body mass index [BMI] 23.0-23.9, adult; R33.9 Retention of urine, unspecified; E78.2 Mixed hyperlipidemia; Z20.822 Contact with and (suspected) exposure to COVID-19
CPT/HCPCS: 36415; 74177; 76770; 80048; 80053; 80061; 80320; 81003; 81015; 83605; 83690; 83735; 83880; 84145; 84153; 84439; 84443; 84484; 85025; 85610; 85730; 87040; 87086; 93005; 93306; 96365; 96367; 96368; 96375; 99284; 99285; G0378; C9113; J2270; J2405; J2543; Q9967

== ENCOUNTER 2022-08-21 08:56 | Inpatient (IN) | payer MEDICARE, SELFPAY ==
[2019-07-23 15:27] VITALS: BMI 23.1
[2022-08-21] VITALS (15 sets, daily range): BP systolic 124–171; BP diastolic 52–76; PULSE 54–69; RESP 16–21; TEMP 36.5–39.3; O2SAT 92–99; BMI 23.7
[2022-08-21 09:27] LABS: Add Manual Diff / Slide Review NO; Basophils Absolute Auto 0 /uL (0-100); Basophils Percent Auto 0.2 % (0-2); Eosinophils Absolute Auto 100 /uL (0-450); Eosinophils Percent Auto 0.6 % (2-4); Hematocrit 38.3 % (41-53); Hemoglobin 13.1 g/dL (13.5-17.5); Lymphocytes Absolute Auto 800 /uL (1100-4500); Lymphocytes Percent Auto 6.9 % (25-40); Mean Corpuscular HGB Conc 34.3 % (30-36); Mean Corpuscular Hemoglobin 31.4 PG (26-34); Mean Corpuscular Volume 91.7 fL (80-100); Monocytes Absolute Auto 1100 /uL (0-900); Neutrophils Absolute Auto 9500 /uL (1500-7000); Neutrophils Percent Auto 82.3 % (50-75); Platelet Count 251 X10^3/uL (150-400); Red Blood Cell Count 4.18 X10^6/uL (4.5-5.9); Red Cell Distribution Width 13.2 % (11.6-14.8); White Blood Cell Count 11.5 X10^3/uL (4.5-11.0)
[2022-08-21 09:32] LABS: Appearance Urine UA SL CLOUDY; Bilirubin Urine UA NEGATIVE (NEGATIVE); Color Urine UA YELLOW; Glucose Urine UA NEGATIVE (Negative); Ketones Urine UA NEGATIVE (NEGATIVE); Leukocyte Esterase Urine UA NEGATIVE (NEGATIVE); Nitrite Urine UA NEGATIVE (Negative); Occult Blood Urine UA 3+ (Negative); Protein Urine UA TRACE (Negative); Specific Gravity Urine UA 1.025 (1.000-1.035); Urobilinogen Urine UA 0.2 E.U./dL (0.2)
--- NOTE | 2022-08-21 09:37 | ED_ITS ---
HPI - General Adult General Chief complaint: Abdominal Pain Stated complaint: intense pain Lower ABD Time Seen by Provider: 08/21/22 09:19 Source: patient Mode of arrival: Ambulatory Limitations: no limitations History of Present Illness HPI narrative: Patient is a 72-year-old male. I evaluated here in the emergency department a couple days ago diagnosed with sigmoid diverticulitis and urinary retention. Was sent home on antibiotics. Since that time he states that his symptoms have been improving but not completely resolved. This morning he woke up and was sitting on the toilet trying to have a bowel movement when he had a sudden intense lower abdominal pain that he states was very similar to what he had he was here in the emergency department couple days ago just worse. No fevers. No vomiting. The Vo catheter is still draining. He did take 2 Tylenol prior to arrival. Denied the need for pain medication here in the ER. Related Data Home Medications Medication Instructions Recorded Confirmed cholecalciferol (vitamin D3) 25 1,000 unit PO DAILY 07/23/19 08/21/22 mcg (1,000 unit) tablet (Vitamin D3) ketoconazole 2 % topical cream 1 applic topical DAILY 08/21/22 08/21/22 Previous Rx's Medication Instructions Recorded simvastatin 40 mg tablet 40 mg PO BEDTIME #90 tabs 05/25/22 ciprofloxacin HCl 500 mg tablet 500 mg PO Q12H 14 days #28 tabs 08/17/22 metronidazole 500 mg tablet 500 mg PO Q8H 14 days #42 tabs 08/17/22 Allergies Allergy/AdvReac Type Severity Reaction Status Date / Time No Known Allergies Allergy Verified 05/25/22 08:57 Review of Systems Constitutional Constitutional: Reports system reviewed and no additional complaints, except as documented Cardiovascular Cardiovascular: Reports system reviewed and no additional complaints, except as documented Respiratory Respiratory: Reports system reviewed and no additional complaints, except as documented Gastrointestinal Gastrointestinal: Reports system reviewed and no additional complaints, except as documented Genitourinary Genitourinary: Reports system reviewed and no additional complaints, except as documented Integumentary/Breasts Skin/Breast: Reports system reviewed and no additional complaints, except as documented Hematologic/Lymphatic On Anticoagulants: No Patient History Medical History Asthma Chronic low back pain Erectile dysfunction Family history of prostate cancer Hearing loss History of colonic polyps Hypercholesteremia Mixed hyperlipidemia Obstructive sleep apnea (~1999) Sciatic nerve pain Seborrheic dermatitis Tinnitus Surgical History Anesthesia History of cholecystectomy (~2019) Hx of tonsillectomy (~1954) Otosclerosis (~1977) Family History Father Congestive heart failure Mother Dementia Sister Joint replaced Sister Joint replaced Social History details: (Marianela), 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, 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 household members: spouse Smoking Status: Never smoker alcohol intake: current Smoking Status: Never smoker alcohol intake frequency: 0-2 drinks per day Substance Use Type: does not use Exam Initial Vital Signs Initial Vital Signs: Vital Signs Pulse Rate 55 L 08/21/22 09:04 Blood Pressure 145/63 H 08/21/22 09:04 Pulse Oximetry 99 08/21/22 09:04 Const General: cooperative, comfortable and No ill appearing HENMT Head: normal to inspection and normocephalic Resp Effort & Inspection: normal respiratory effort Auscultation: clear to auscultation bilaterally Cardio Rate: regular rate Rhythm: regular rhythm GI Inspection: normal to inspection Palpation: soft, No firm, No guarding and tender (Lower abdomen) Back/Spine/Pelvis Back: No CVA tenderness Skin General: no rashes or lesions noted Neuro General: patient alert, patient awake and moves all extremities Extrem General: normal to inspection Course Orders Ordered: ED Orders 08/21/22 09:10 Complete Blood Count AUTO DIFF Stat Comprehensive Metabolic Panel Stat Lipase Stat Urinalysis and Microscopic Stat 08/21/22 09:38 CT abdomen pelvis w con Stat 08/21/22 09:42 Blood Culture Stat 08/21/22 11:13 COVID19 -Nasal RAPID/Pre-Proc Stat 08/21/22 11:32 Consult to General Surgery Stat 08/22/22 05:00 BMP [Basic Metabolic Panel] DAILY CBC Auto Diff [Complete Blood Count AUTO DIFF] DAILY 08/23/22 05:00 BMP [Basic Metabolic Panel] DAILY CBC Auto Diff [Complete Blood Count AUTO DIFF] DAILY 08/24/22 05:00 BMP [Basic Metabolic Panel] DAILY CBC Auto Diff [Complete Blood Count AUTO DIFF] DAILY Acetaminophen (Acetaminophen 325 Mg Tablet) 650 mg PO Q6H PRN PRN Reason: Fever/Mild Pain (1-3) Atorvastatin Calcium (Atorvastatin 20 Mg Tablet) 20 mg PO BEDTIME NARCISO Enoxaparin Sodium (Enoxaparin 40 Mg/0.4 Ml Syringe) 40 mg SUBCUT DAILY NARCISO Hydromorphone HCl (Hydromorphone 0.5 Mg Inj) 0.5 mg IV Q4H PRN PRN Reason: Pain, Moderate (4-6) Piperacillin Sod/Tazobactam (Sod 3.375 gm/ Sodium Chloride) 100 mls @ 25 mls/hr IV Q8H NARCISO Lactated Ringer's (Lactated Ringers) 1,000 mls @ 75 mls/hr IV CONT NARCISO Last Infusion: 08/21/22 12:20 Dose: 75 mls/hr Documented By: Admin: 08/21/22 11:54 Dose: 75 mls/hr Documented By: AGUSTINA Melatonin (Melatonin 3 Mg Tablet) 6 mg PO BEDTIME PRN PRN Reason: Insomnia Naloxone HCl (Naloxone 0.4 Mg/Ml Vial) 0.2 mg IV Q2MIN PRN PRN Reason: Opiate Reversal Ondansetron HCl (Ondansetron 4 Mg/2 Ml Inj) 4 mg IV Q8HR PRN PRN Reason: Nausea And Vomiting Oxycodone HCl (Oxycodone Ir 5 Mg Tablet) 5 mg PO Q4H PRN PRN Reason: Pain, Moderate (4-6) Discontinued Medications Hydromorphone HCl (Hydromorphone 0.5 Mg Inj) 0.5 mg IV NOW ONE Stop: 08/21/22 10:33 Last Admin: 08/21/22 10:44 Dose: 0.5 mg Documented By: AGUSTINA Piperacillin Sod/Tazobactam (Sod 4.5 gm/ Sodium Chloride) 100 mls @ 200 mls/hr IV NOW ONE Stop: 08/21/22 10:55 Last Infusion: 08/21/22 11:55 Dose: 0 mls/hr Documented By: Admin: 08/21/22 11:22 Dose: 200 mls/hr Documented By: AGUSTINA Vital Signs Vital signs: Vital Signs - 8 hr 08/21/22 09:15 08/21/22 09:04 08/21/22 09:04 Temperature 97.7 F Pulse Rate 56 L 55 L Respiratory Rate 16 Blood Pressure 145/63 H 145/63 H Pulse Oximetry 99 99 Oxygen Delivery Method Room Air 08/21/22 09:30 08/21/22 09:30 08/21/22 10:00 Temperature Pulse Rate 55 L Respiratory Rate Blood Pressure 124/63 133/69 Pulse Oximetry 98 Oxygen Delivery Method 08/21/22 10:00 08/21/22 10:13 08/21/22 10:30 Temperature Pulse Rate 55 L 55 L Respiratory Rate Blood Pressure 171/76 H Pulse Oximetry 97 95 Oxygen Delivery Method Room Air 08/21/22 10:31 08/21/22 10:31 Temperature Pulse Rate 54 L Respiratory Rate Blood Pressure 143/68 H Pulse Oximetry 98 Oxygen Delivery Method Medical Decision Making Medical Records Medical records reviewed: Yes I reviewed the patient's medical records. Lab Data Lab results reviewed: Yes I reviewed the patient's lab results. 08/21/22 09:10 08/21/22 09:10 Labs: Lab Results 08/21/22 08/21/22 08/21/22 Range/Units 09:10 09:10 09:10 WBC 11.5 H (4.5-11.0) X10^3/uL RBC 4.18 L (4.5-5.9) X10^6/uL Hgb 13.1 L (13.5-17.5) g/dL Hct 38.3 L (41-53) % MCV 91.7 (80-100) fL MCH 31.4 (26-34) PG MCHC 34.3 (30-36) % RDW 13.2 (11.6-14.8) % Plt Count 251 (150-400) X10^3/uL Neut % (Auto) 82.3 H (50-75) % Lymph % (Auto) 6.9 L (25-40) % [place] % (Auto) 10.0 (3-14) % Eos % (Auto) 0.6 L (2-4) % Baso % (Auto) 0.2 (0-2) % Neut # (Auto) 9500 H (4948-5789) /uL Lymph # (Auto) 800 L (8222-3649) /uL [place] # (Auto) 1100 H (0-900) /uL Eos # (Auto) 100 (0-450) /uL Baso # (Auto) 0 (0-100) /uL Sodium 133 L (137-145) mmol/L Potassium 3.4 (3.4-5.1) mmol/L Chloride 98 (98-107) mmol/L Carbon Dioxide 24 (22-32) mmol/L BUN 10 (9-20) mg/dL Creatinine 0.99 (0.66-1.25) mg/dL Estimated GFR > 60 (>60) mL/min BUN/Creatinine Ratio 10.1 (6-22) Glucose 128 H (80-110) mg/dL Calcium 8.8 (8.4-10.2) mg/dL Total Bilirubin 0.9 (0.2-1.3) mg/dL AST 28 (17-59) IU/L ALT 26 (<50) IU/L Alkaline Phosphatase 59 (38-126) U/L Total Protein 7.1 (6.3-8.2) g/dL Albumin 4.1 (3.5-5.0) g/dL Globulin 3.0 (1.7-4.1) g/dL Albumin/Globulin Ratio 1.4 (1.0-2.8) Lipase 50 (23-300) U/L Urine Color Yellow Urine Appearance Sl cloudy Urine pH 7.0 (4.5-8.0) Ur Specific [place] 1.025 (1.000-1.035) Urine Protein Trace H (Negative) Urine Glucose (UA) Negative (Negative) g/dL Urine Ketones Negative (NEGATIVE) Urine Occult Blood 3+ H (Negative) Urine Nitrate Negative (Negative) Urine Bilirubin Negative (NEGATIVE) Urine Urobilinogen 0.2 (0.2) E.U./dL Ur Leukocyte Esterase Negative (NEGATIVE) Urine RBC 10-30/hpf H (0-5/HPF) Urine WBC 0-1/hpf (0-5/HPF) Ur Squamous Epith Cells None seen (0-5/HPF) Calcium Oxalate Crystal Occasional H Urine Bacteria None seen (None) Ur Culture Indicated? Cult not indicated SARS-CoV-2 (PCR) (Negative) 08/21/22 Range/Units 11:13 WBC (4.5-11.0) X10^3/uL RBC (4.5-5.9) X10^6/uL Hgb (13.5-17.5) g/dL Hct (41-53) % MCV (80-100) fL MCH (26-34) PG MCHC (30-36) % RDW (11.6-14.8) % Plt Count (150-400) X10^3/uL Neut % (Auto) (50-75) % Lymph % (Auto) (25-40) % [place] % (Auto) (3-14) % Eos % (Auto) (2-4) % Baso % (Auto) (0-2) % Neut # (Auto) (0209-7613) /uL Lymph # (Auto) (9172-1052) /uL [place] # (Auto) (0-900) /uL Eos # (Auto) (0-450) /uL Baso # (Auto) (0-100) /uL Sodium (137-145) mmol/L Potassium (3.4-5.1) mmol/L Chloride (98-107) mmol/L Carbon Dioxide (22-32) mmol/L BUN (9-20) mg/dL Creatinine (0.66-1.25) mg/dL Estimated GFR (>60) mL/min BUN/Creatinine Ratio (6-22) Glucose (80-110) mg/dL Calcium (8.4-10.2) mg/dL Total Bilirubin (0.2-1.3) mg/dL AST (17-59) IU/L ALT (<50) IU/L Alkaline Phosphatase (38-126) U/L Total Protein (6.3-8.2) g/dL Albumin (3.5-5.0) g/dL Globulin (1.7-4.1) g/dL Albumin/Globulin Ratio (1.0-2.8) Lipase (23-300) U/L Urine Color Urine Appearance Urine pH (4.5-8.0) Ur Specific [place] (1.000-1.035) Urine Protein (Negative) Urine Glucose (UA) (Negative) g/dL Urine Ketones (NEGATIVE) Urine Occult Blood (Negative) Urine Nitrate (Negative) Urine Bilirubin (NEGATIVE) Urine Urobilinogen (0.2) E.U./dL Ur Leukocyte Esterase (NEGATIVE) Urine RBC (0-5/HPF) Urine WBC (0-5/HPF) Ur Squamous Epith Cells (0-5/HPF) Calcium Oxalate Crystal Urine Bacteria (None) Ur Culture Indicated? SARS-CoV-2 (PCR) Negative (Negative) Imaging Data CT scan - abdomen/pelvis: Radiologist's Impression: PROCEDURE:? CT ABDOMEN PELVIS W CON ? INDICATIONS:? hx of diverticulitis with worsening pain eval for abscess ? TECHNIQUE:? After the administration of intravenous contrast, axial sections acquired from the lung bases to the pubic symphysis.? Coronal and sagittal reformats were performed.? For radiation dose reduction, the following was used:? automated exposure control, adjustment of mA and/or kV according to patient size.? ? COMPARISON:? [facility], CT, CT ABDOMEN PELVIS W CON, 08/16/2022, 19:04. ? FINDINGS:? Image quality:? Excellent.? ? Lung bases:? Unremarkable. Heart:? No significant findings. ? ABDOMEN: Liver:? Unremarkable.? ? Gallbladder:? Surgically absent. Biliary ducts:? Unremarkable.? ? Pancreas:? Unremarkable.? ? Spleen:? Unremarkable.? ? Adrenal Glands:? Unremarkable.? ? Kidneys and Ureters:? Unremarkable.? ? ? Stomach and Bowel:? Incidental note is made of the presence of a duodenal diverticulum.? Again noted is an abnormal segment of sigmoid/rectosigmoid with diffuse wall thickening.? There are diverticuli in this region.? There is interval development of increased air subjacent to the segment, consistent with a probable walled off perforation.? Peritoneum:? No abnormal intraperitoneal fluid.? No free air.? ? Ventral Wall: ? No hernias.? Abdominal Nodes:? No retroperitoneal or mesenteric adenopathy by size criteria.? Vessels:? Aorta and inferior vena cava are normal in size.? ? PELVIS: Pelvic Organs:? Unremarkable.? ? Bladder:? A Vo catheter partially decompresses the bladder..? ? Pelvic Nodes: No enlarged lymph nodes.? Miscellaneous: No hernias are seen. ? ? ? Bones:? Lumbar degenerative change.? No lytic or blastic bony lesions.? No com pression fractures. ? IMPRESSION:? Continued abnormal wall thickening involving a segment of sigmoid/rectosigmoid.? This occurs in area of diverticulosis.? There is increased air subjacent to this segment, consistent with a walled off perforation.? Differential diagnosis includes infectious versus inflammatory colitis, diverticulitis with perforation, and colon malignancy with perforation.? Ischemic colitis is unlikely due to the location of the abnormality. ? Comment:? Recommend direct visualization with colonoscopy after acute clinical symptoms resolved. MDM Narrative Medical decision making narrative: Patient has a known history of diverticulitis. His leukocytosis has improved from earlier however CT scan today does show what appears to be walled off perforation which is new compared to his CT scan from a couple days ago. He is nontoxic appearing. I did discuss the case with Dr. Hall on-call for General surgery who reviewed the CT scan. He recommended Zosyn and admission to the medicine service as there is no specific indication for surgery emergently. I then discussed the case with Dr. Al on-call for Internal Medicine who will admit for further evaluation and treatment. Discussed the need for admission with the patient and his who is at bedside. They all expressed understanding and agreement with plan. Discharge Plan Departure Patient Disposition: Home Clinical Impression: Diverticulitis of intestine with perforation
[2022-08-21 09:38] LABS: Alanine Aminotransferase 26 IU/L (<50); Albumin 4.1 g/dL (3.5-5.0); Albumin Globulin Ratio 1.4 (1.0-2.8); Alkaline Phosphatase 59 U/L (38-126); Aspartate Aminotransferase 28 IU/L (17-59); BUN Creatinine Ratio 10.1 (6-22); Bilirubin Total 0.9 mg/dL (0.2-1.3); Blood Urea Nitrogen 10 mg/dL (9-20); Calcium 8.8 mg/dL (8.4-10.2); Carbon Dioxide 24 mmol/L (22-32); Chloride 98 mmol/L (98-107); Estimated Glomerular Filt Rate > 60 mL/min (>60); Glucose 128 mg/dL (80-110); HEMOLYSIS < 15 (0-50); Lipase 50 U/L (23-300); Potassium 3.4 mmol/L (3.4-5.1); Sodium 133 mmol/L (137-145); Total Protein 7.1 g/dL (6.3-8.2)
--- NOTE | 2022-08-21 09:38 | DI.CT.S_ITS ---
PROCEDURE: CT ABDOMEN PELVIS W CON INDICATIONS: hx of diverticulitis with worsening pain eval for abscess TECHNIQUE: After the administration of intravenous contrast, axial sections acquired from the lung bases to the pubic symphysis. Coronal and sagittal reformats were performed. For radiation dose reduction, the following was used: automated exposure control, adjustment of mA and/or kV according to patient size. COMPARISON: [facility], CT, CT ABDOMEN PELVIS W CON, 08/16/2022, 19:04. FINDINGS: Image quality: Excellent. Lung bases: Unremarkable. Heart: No significant findings. ABDOMEN: Liver: Unremarkable. Gallbladder: Surgically absent. Biliary ducts: Unremarkable. Pancreas: Unremarkable. Spleen: Unremarkable. Adrenal Glands: Unremarkable. Kidneys and Ureters: Unremarkable. Stomach and Bowel: Incidental note is made of the presence of a duodenal diverticulum. Again noted is an abnormal segment of sigmoid/rectosigmoid with diffuse wall thickening. There are diverticuli in this region. There is interval development of increased air subjacent to the segment, consistent with a probable walled off perforation. Peritoneum: No abnormal intraperitoneal fluid. No free air. Ventral Wall: No hernias. Abdominal Nodes: No retroperitoneal or mesenteric adenopathy by size criteria. Vessels: Aorta and inferior vena cava are normal in size. PELVIS: Pelvic Organs: Unremarkable. Bladder: A Vo catheter partially decompresses the bladder.. Pelvic Nodes: No enlarged lymph nodes. Miscellaneous: No hernias are seen. Bones: Lumbar degenerative change. No lytic or blastic bony lesions. No compression fractures. IMPRESSION: Continued abnormal wall thickening involving a segment of sigmoid/rectosigmoid. This occurs in area of diverticulosis. There is increased air subjacent to this segment, consistent with a walled off perforation. Differential diagnosis includes infectious versus inflammatory colitis, diverticulitis with perforation, and colon malignancy with perforation. Ischemic colitis is unlikely due to the location of the abnormality. Comment: Recommend direct visualization with colonoscopy after acute clinical symptoms resolved. Dictated by: Robert Lomas M.D. on 08/21/2022 at 10:18 Approved by: Robert Lomas M.D. on 08/21/2022 at 10:25
[2022-08-21 09:39] LABS: RBC Urine 10-30/HPF (0-5/HPF)
[2022-08-21 09:40] LABS: Bacteria Urine None Seen; Squamous Epithelial Cell Urine None Seen (0-5/HPF); WBC Urine 0-1/HPF (0-5/HPF)
[2022-08-21 09:43] LABS: Calcium Oxalate Crystals Urine Occasional; Culture Indicated Urine Cult Not Indicated
[2022-08-21] MEDS: HYDROMORPHONE 0.5 MG INJ IV ×2 (10:44→21:06)
[2022-08-21] MEDS: PIPERACILLIN/TAZO 4.5 GM in SODIUM CHLORIDE 0.9% 100 ML IV (11:22)
--- NOTE | 2022-08-21 11:36 | PM.HP.1 ---
History of Present Illness History of Present Illness Date Patient Seen: 08/21/22 Chief complaint: intense pain Lower ABD Narrative: Yoav is a 72-year-old male with past medical history of diverticulitis, urinary retention, prostate cancer, asthma, MESHA, and hyperlipidemia who presents with acute onset abdominal pain and found to have perforated diverticulitis. Patient states he developed worsening lower quadrant abd pain since first coming to the ED on 08/16 where he was given abx for diverticulitis and admitted for acute urinary retention. He was on day 5 of cipro and flagyl but it was not helping. Pain is mostly below his umbilicus. He still has a watt cath present from his last admission and has to see urology. Denies NV, diarrhea, fevers, CP, SOB or flank pain. Patient History Medical History Asthma Chronic low back pain Erectile dysfunction Family history of prostate cancer Hearing loss History of colonic polyps Hypercholesteremia Mixed hyperlipidemia Obstructive sleep apnea (~1999) Sciatic nerve pain Seborrheic dermatitis Tinnitus Surgical History Anesthesia History of cholecystectomy (~2019) Hx of tonsillectomy (~1954) Otosclerosis (~1977) Family & Social History Family History Father Congestive heart failure Mother Dementia Sister Joint replaced Sister Joint replaced Social History: household members spouse Safety & Behavioral: Feels Safe in Current Yes Environment Been Physically Hurt or No Threatened By a Person Tobacco & Substance use: Smoking Status Never smoker alcohol intake current alcohol intake frequency 0-2 drinks per day Substance Use Type does not use Meds Home Medications and Allergies Home Medications Medication Instructions Recorded Confirmed Type cholecalciferol (vitamin D3) 25 1,000 unit PO DAILY 07/23/19 08/21/22 History mcg (1,000 unit) tablet (Vitamin D3) simvastatin 40 mg tablet 40 mg PO BEDTIME #90 tabs 05/25/22 08/21/22 Rx ciprofloxacin HCl 500 mg tablet 500 mg PO Q12H 14 days #28 tabs 08/17/22 08/21/22 Rx metronidazole 500 mg tablet 500 mg PO Q8H 14 days #42 tabs 08/17/22 08/21/22 Rx ketoconazole 2 % topical cream 1 applic topical DAILY 08/21/22 08/21/22 History Allergies Allergy/AdvReac Type Severity Reaction Status Date / Time No Known Allergies Allergy Verified 05/25/22 08:57 Review of Systems Review of Systems Narrative: All other systems reviewed with the patient and are negative unless otherwise stated. Exam Vital Signs (past 8 hours): - 08/21/22 09:15 08/21/22 09:04 08/21/22 09:04 Temperature 97.7 F Pulse Rate 56 L 55 L Respiratory Rate 16 Blood Pressure 145/63 H 145/63 H Pulse Oximetry 99 99 Oxygen Delivery Method Room Air 08/21/22 09:30 08/21/22 09:30 08/21/22 10:00 Temperature Pulse Rate 55 L Respiratory Rate Blood Pressure 124/63 133/69 Pulse Oximetry 98 Oxygen Delivery Method 08/21/22 10:00 08/21/22 10:13 08/21/22 10:30 Temperature Pulse Rate 55 L 55 L Respiratory Rate Blood Pressure 171/76 H Pulse Oximetry 97 95 Oxygen Delivery Method Room Air 08/21/22 10:31 08/21/22 10:31 Temperature Pulse Rate 54 L Respiratory Rate Blood Pressure 143/68 H Pulse Oximetry 98 Oxygen Delivery Method Oxygen Delivery Method Room Air Narrative Exam Narrative: GEN: mild distress HEENT: moist mucous membranes, PERRL NECK: trachea midline, no JVD CV: regular rate and rhythm, no murmurs PULM: clear bilaterally ABD: soft, guarding present and tender to palpation in lower left/middle quandrant, nondistended, no organomegaly EXT: warm and well perfused with no edema NEURO: awake, alert, oriented, no focal deficits Objective Labs 08/21/22 09:10 08/21/22 09:10 Labs: Laboratory Results - last 24 hr 08/21/22 08/21/22 08/21/22 09:10 09:10 09:10 WBC 11.5 H RBC 4.18 L Hgb 13.1 L Hct 38.3 L MCV 91.7 MCH 31.4 MCHC 34.3 RDW 13.2 Plt Count 251 Neut % (Auto) 82.3 H Lymph % (Auto) 6.9 L [place] % (Auto) 10.0 Eos % (Auto) 0.6 L Baso % (Auto) 0.2 Neut # (Auto) 9500 H Lymph # (Auto) 800 L [place] # (Auto) 1100 H Eos # (Auto) 100 Baso # (Auto) 0 Sodium 133 L Potassium 3.4 Chloride 98 Carbon Dioxide 24 BUN 10 Creatinine 0.99 Estimated GFR > 60 BUN/Creatinine Ratio 10.1 Glucose 128 H Calcium 8.8 Total Bilirubin 0.9 AST 28 ALT 26 Alkaline Phosphatase 59 Total Protein 7.1 Albumin 4.1 Globulin 3.0 Albumin/Globulin Ratio 1.4 Lipase 50 Urine Color Yellow Urine Appearance Sl cloudy Urine pH 7.0 Ur Specific [place] 1.025 Urine Protein Trace H Urine Glucose (UA) Negative Urine Ketones Negative Urine Occult Blood 3+ H Urine Nitrate Negative Urine Bilirubin Negative Urine Urobilinogen 0.2 Ur Leukocyte Esterase Negative Urine RBC 10-30/hpf H Urine WBC 0-1/hpf Ur Squamous Epith Cells None seen Calcium Oxalate Crystal Occasional H Urine Bacteria None seen Ur Culture Indicated? Cult not indicated Assessment & Plan Assessment & Plan narrative: # acute abdominal pain secondary to perforated diverticulitis -CT abdomen and pelvis showed evidence of sigmoid diverticular air consistent with walled-off perforation -Dr. Hall, general surgery consulted and will follow -continue Zosyn -pain medications as needed -general surgery ok with clear liquid diet and advance as tolerated # urinary retention s/p Watt -admitted less than 1 week ago for urinary retention and Watt placed, plan was for outpatient urology follow-up which has not occurred yet -maintain Watt # hyperlipidemia, chronic -continue home statin Code status is full code. COVID negative. DVT prophylaxis with Lovenox. Proxy is spouse Marianela. I have reviewed home meds and used all available resources to reconcile the home meds. This patient will be admitted as inpatient and will require greater than 2 midnights of hospital time to treat diverticular perforation. Time Spent With Patient Critical Care time: I spent a total of [] minutes of critical care time on this patient's care today; this time is exclusive of procedural time.
[2022-08-21 11:54] LABS: COVID19 -Nasal RAPID Negative (Negative)
[2022-08-21] MEDS: LACTATED RINGERS 1,000 ML 75 ML IV (11:54)
--- NOTE | 2022-08-21 12:44 | P.CONS_ITS ---
History of Present Illness Consult details Chief complaint: intense pain Lower ABD Narrative: Alfonso Montejo is a 72-year-old man who is admitted for perforated diverticulitis. He was treated a few weeks ago as an outpatient but has returned with lower abdominal pain and urinary retention. CT scan showed a lik gerard walled-off diverticular abscess of the sigmoid colon. Meds Home Medications and Allergies Home Medications Medication Instructions Recorded Confirmed Type cholecalciferol (vitamin D3) 25 1,000 unit PO DAILY 07/23/19 08/21/22 History mcg (1,000 unit) tablet (Vitamin D3) simvastatin 40 mg tablet 40 mg PO BEDTIME #90 tabs 05/25/22 08/21/22 Rx ciprofloxacin HCl 500 mg tablet 500 mg PO Q12H 14 days #28 tabs 08/17/22 08/21/22 Rx metronidazole 500 mg tablet 500 mg PO Q8H 14 days #42 tabs 08/17/22 08/21/22 Rx ketoconazole 2 % topical cream 1 applic topical DAILY 08/21/22 08/21/22 History Allergies Allergy/AdvReac Type Severity Reaction Status Date / Time No Known Allergies Allergy Verified 05/25/22 08:57 Exam Vital Signs (past 8 hours): - 08/21/22 09:15 08/21/22 09:04 08/21/22 09:04 Temperature 97.7 F Pulse Rate 56 L 55 L Respiratory Rate 16 Blood Pressure 145/63 H 145/63 H Pulse Oximetry 99 99 Oxygen Delivery Method Room Air 08/21/22 09:30 08/21/22 09:30 08/21/22 10:00 Temperature Pulse Rate 55 L Respiratory Rate Blood Pressure 124/63 133/69 Pulse Oximetry 98 Oxygen Delivery Method 08/21/22 10:00 08/21/22 10:13 08/21/22 10:30 Temperature Pulse Rate 55 L 55 L Respiratory Rate Blood Pressure 171/76 H Pulse Oximetry 97 95 Oxygen Delivery Method Room Air 08/21/22 10:31 08/21/22 10:31 Temperature Pulse Rate 54 L Respiratory Rate Blood Pressure 143/68 H Pulse Oximetry 98 Oxygen Delivery Method Oxygen Delivery Method Room Air Narrative Exam Narrative: No acute distress Happens soft, no peritonitis Objective Labs 08/21/22 09:10 08/21/22 09:10 Labs: Laboratory Results - last 24 hr 08/21/22 08/21/22 08/21/22 09:10 09:10 09:10 WBC 11.5 H RBC 4.18 L Hgb 13.1 L Hct 38.3 L MCV 91.7 MCH 31.4 MCHC 34.3 RDW 13.2 Plt Count 251 Neut % (Auto) 82.3 H Lymph % (Auto) 6.9 L [place] % (Auto) 10.0 Eos % (Auto) 0.6 L Baso % (Auto) 0.2 Neut # (Auto) 9500 H Lymph # (Auto) 800 L [place] # (Auto) 1100 H Eos # (Auto) 100 Baso # (Auto) 0 Sodium 133 L Potassium 3.4 Chloride 98 Carbon Dioxide 24 BUN 10 Creatinine 0.99 Estimated GFR > 60 BUN/Creatinine Ratio 10.1 Glucose 128 H Calcium 8.8 Total Bilirubin 0.9 AST 28 ALT 26 Alkaline Phosphatase 59 Total Protein 7.1 Albumin 4.1 Globulin 3.0 Albumin/Globulin Ratio 1.4 Lipase 50 Urine Color Yellow Urine Appearance Sl cloudy Urine pH 7.0 Ur Specific [place] 1.025 Urine Protein Trace H Urine Glucose (UA) Negative Urine Ketones Negative Urine Occult Blood 3+ H Urine Nitrate Negative Urine Bilirubin Negative Urine Urobilinogen 0.2 Ur Leukocyte Esterase Negative Urine RBC 10-30/hpf H Urine WBC 0-1/hpf Ur Squamous Epith Cells None seen Calcium Oxalate Crystal Occasional H Urine Bacteria None seen Ur Culture Indicated? Cult not indicated SARS-CoV-2 (PCR) 08/21/22 11:13 WBC RBC Hgb Hct MCV MCH MCHC RDW Plt Count Neut % (Auto) Lymph % (Auto) [place] % (Auto) Eos % (Auto) Baso % (Auto) Neut # (Auto) Lymph # (Auto) [place] # (Auto) Eos # (Auto) Baso # (Auto) Sodium Potassium Chloride Carbon Dioxide BUN Creatinine Estimated GFR BUN/Creatinine Ratio Glucose Calcium Total Bilirubin AST ALT Alkaline Phosphatase Total Protein Albumin Globulin Albumin/Globulin Ratio Lipase Urine Color Urine Appearance Urine pH Ur Specific [place] Urine Protein Urine Glucose (UA) Urine Ketones Urine Occult Blood Urine Nitrate Urine Bilirubin Urine Urobilinogen Ur Leukocyte Esterase Urine RBC Urine WBC Ur Squamous Epith Cells Calcium Oxalate Crystal Urine Bacteria Ur Culture Indicated? 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 If his symptoms improve over the next 1-2 days he can be discharged on oral antibiotics and an outpatient CT scan can be arranged. If his diverticulitis resolves we can pursue a colonoscopy in a few months. Time Spent With Patient Critical Care time: I spent a total of [] minutes of critical care time on this patient's care today; this time is exclusive of procedural time.
--- NOTE | 2022-08-21 13:03 | PC.NURSE ---
watt pt admitted with indwelling watt r/t urinary retention. Leg bag disconnected and large bag placed.
[2022-08-21] MEDS: ONDANSETRON 4 MG/2 ML INJ IV (14:56)
[2022-08-21] MEDS: ACETAMINOPHEN 325 MG TABLET 650 MG PO (15:34)
--- NOTE | 2022-08-21 15:37 | PC.NURSE ---
febrile 1535 temp elevated to 102.8(oral)/103.1(temporal). notified, tylenol administered. Extra blankets removed. Bowel tones active all quadrants. pt denies any increase in pain (currently rating 3/10). States zofran alleviated nausea. cool cloth to forehead. Pt instructed to notify RN if increase in pain, nausea, or any SOB.
[2022-08-21] MEDS: PIPERACILLIN/TAZO 3.375 GM in SODIUM CHLORIDE 0.9% 100 ML IV (16:56)
[2022-08-21] MEDS: ATORVASTATIN 20 MG TABLET PO (21:06)
[2022-08-22] VITALS: BP 119/53; PULSE 65; RESP 19; TEMP 37.5; O2SAT 96
[2022-08-22] MEDS: HYDROMORPHONE 0.5 MG INJ IV ×3 (01:16→20:43)
[2022-08-22] MEDS: PIPERACILLIN/TAZO 3.375 GM in SODIUM CHLORIDE 0.9% 100 ML IV ×3 (01:16→16:58)
[2022-08-22 05:21] VITALS: BP 123/59; PULSE 58; RESP 17; TEMP 37.2; O2SAT 97
[2022-08-22 05:56] LABS: Hematocrit 37.8 % (41-53); Hemoglobin 12.8 g/dL (13.5-17.5); Mean Corpuscular HGB Conc 33.9 % (30-36); Mean Corpuscular Hemoglobin 30.9 PG (26-34); Mean Corpuscular Volume 91.2 fL (80-100); Platelet Count 257 X10^3/uL (150-400); Red Blood Cell Count 4.14 X10^6/uL (4.5-5.9); Red Cell Distribution Width 13.5 % (11.6-14.8); White Blood Cell Count 17.6 X10^3/uL (4.5-11.0)
[2022-08-22 06:01] LABS: Add Manual Diff / Slide Review YES
[2022-08-22 06:08] LABS: BUN Creatinine Ratio 10.4 (6-22); Blood Urea Nitrogen 10 mg/dL (9-20); Calcium 8.2 mg/dL (8.4-10.2); Carbon Dioxide 28 mmol/L (22-32); Chloride 97 mmol/L (98-107); Estimated Glomerular Filt Rate > 60 mL/min (>60); Glucose 132 mg/dL (80-110); HEMOLYSIS < 15 (0-50); Potassium 4.5 mmol/L (3.4-5.1); Sodium 133 mmol/L (137-145)
[2022-08-22 06:37] LABS: Neutrophils Absolute Manual 14784 /uL (3000-5900); Total Cells Counted 100
[2022-08-22 06:41] LABS: RBC Morphology Normal Morphology
--- NOTE | 2022-08-22 07:37 | PM.PN.1 ---
Subjective Subjective Date Patient Seen: 08/22/22 Interval history: Abd pain, appetite improving and now having BM's. WBC increased to 17. Febrile yesterday but not today. Exam Vital Signs (past 8 hours): - 08/22/22 00:00 08/22/22 05:21 Temperature 99.5 F 98.9 F Pulse Rate 65 58 L Respiratory Rate 19 17 Blood Pressure 119/53 L 123/59 L Pulse Oximetry 96 97 Oxygen Flow Rate 0 0 Oxygen Delivery Method Room Air Oxygen Flow Rate 0 Narrative Exam Narrative: GEN: no distress HEENT: moist mucous membranes, PERRL NECK: trachea midline, no JVD CV: regular rate and rhythm, no murmurs PULM: clear bilaterally ABD: soft, tender to palpation in lower left/middle quandrant, nondistended, no organomegaly EXT: warm and well perfused with no edema NEURO: awake, alert, oriented, no focal deficits Objective Labs 08/22/22 05:43 08/22/22 05:43 Labs: Laboratory Results - last 24 hr 08/21/22 08/21/22 08/21/22 09:10 09:10 09:10 WBC 11.5 H RBC 4.18 L Hgb 13.1 L Hct 38.3 L MCV 91.7 MCH 31.4 MCHC 34.3 RDW 13.2 Plt Count 251 Neut % (Auto) 82.3 H Lymph % (Auto) 6.9 L [place] % (Auto) 10.0 Eos % (Auto) 0.6 L Baso % (Auto) 0.2 Neut # (Auto) 9500 H Lymph # (Auto) 800 L [place] # (Auto) 1100 H Eos # (Auto) 100 Baso # (Auto) 0 Total Counted Seg Neutrophils % Band Neutrophils % Lymphocytes % (Manual) Monocytes % (Manual) Neutrophils # (Manual) RBC Morphology Sodium 133 L Potassium 3.4 Chloride 98 Carbon Dioxide 24 BUN 10 Creatinine 0.99 Estimated GFR > 60 BUN/Creatinine Ratio 10.1 Glucose 128 H Calcium 8.8 Total Bilirubin 0.9 AST 28 ALT 26 Alkaline Phosphatase 59 Total Protein 7.1 Albumin 4.1 Globulin 3.0 Albumin/Globulin Ratio 1.4 Lipase 50 Urine Color Yellow Urine Appearance Sl cloudy Urine pH 7.0 Ur Specific [place] 1.025 Urine Protein Trace H Urine Glucose (UA) Negative Urine Ketones Negative Urine Occult Blood 3+ H Urine Nitrate Negative Urine Bilirubin Negative Urine Urobilinogen 0.2 Ur Leukocyte Esterase Negative Urine RBC 10-30/hpf H Urine WBC 0-1/hpf Ur Squamous Epith Cells None seen Calcium Oxalate Crystal Occasional H Urine Bacteria None seen Ur Culture Indicated? Cult not indicated SARS-CoV-2 (PCR) 08/21/22 08/22/22 08/22/22 11:13 05:43 05:43 WBC 17.6 H D RBC 4.14 L Hgb 12.8 L Hct 37.8 L MCV 91.2 MCH 30.9 MCHC 33.9 RDW 13.5 Plt Count 257 Neut % (Auto) Not Reportable Lymph % (Auto) Not Reportable [place] % (Auto) Not Reportable Eos % (Auto) Not Reportable Baso % (Auto) Not Reportable Neut # (Auto) Lymph # (Auto) Not Reportable [place] # (Auto) Not Reportable Eos # (Auto) Baso # (Auto) Not Reportable Total Counted 100 Seg Neutrophils % 81.0 H Band Neutrophils % 3.0 Lymphocytes % (Manual) 15.0 L Monocytes % (Manual) 1.0 L Neutrophils # (Manual) 83832 H RBC Morphology Normal morphology Sodium 133 L Potassium 4.5 Chloride 97 L Carbon Dioxide 28 BUN 10 Creatinine 0.96 Estimated GFR > 60 BUN/Creatinine Ratio 10.4 Glucose 132 H Calcium 8.2 L Total Bilirubin AST ALT Alkaline Phosphatase Total Protein Albumin Globulin Albumin/Globulin Ratio Lipase Urine Color Urine Appearance Urine pH Ur Specific [place] Urine Protein Urine Glucose (UA) Urine Ketones Urine Occult Blood Urine Nitrate Urine Bilirubin Urine Urobilinogen Ur Leukocyte Esterase Urine RBC Urine WBC Ur Squamous Epith Cells Calcium Oxalate Crystal Urine Bacteria Ur Culture Indicated? 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 Hall, general surgery consulted and will follow -continue Zosyn -pain medications as needed -now advancing diet, having BM's # urinary retention s/p Vo -admitted less than 1 week ago for urinary retention and Vo placed, plan was for outpatient urology follow-up which has not occurred yet -maintain Vo -f/u with outpatient urology # hyperlipidemia, chronic -continue home statin Code status is full code. COVID negative. DVT prophylaxis with Lovenox. Proxy is spouse Marianela. Dispo: Home in 1-2 days. Time Spent With Patient Critical Care time: I spent a total of [] minutes of critical care time on this patient's care today; this time is exclusive of procedural time. Quality VTE Deep Vein Thrombosis/Pulmonary Embolism Present on Admission: No
[2022-08-22 08:00] VITALS: BP 125/59; PULSE 57; RESP 17; TEMP 37.2; O2SAT 94
[2022-08-22] MEDS: ENOXAPARIN 40 MG/0.4 ML SYRINGE SUBCUT (08:07)
[2022-08-22 11:00] VITALS: BP 111/61; PULSE 55; RESP 17; TEMP 36.9; O2SAT 96
[2022-08-22] MEDS: SODIUM CHLORIDE 0.9% 1,000 ML 75 ML IV (11:00)
--- NOTE | 2022-08-22 13:09 | CM.DANOTE ---
Addendum entered by DAMI Bush 08/22/22 13:13: ADD: Call received from anastasiia Carlin high risk case manager P [phone], called to offer assistance with DC planning and pre-authorized services as needed LU Original Note: Initial DCP Assessment Note Pt is a 72 yo male, resident [facility], with past medical history of diverticulitis, urinary retention, prostate cancer, asthma, MESHA, and hyperlipidemia who presents with acute onset abdominal pain and found to have perforated diverticulitis. Surgery consulted and currently recommending IV antibiotics and bowel rest PCP: Gabriel Nguyen Payer: Anastasiia PEREIRA Reviewed chart, met w/patient and spouse this morning to introduce self and role. Patient is active and indp at baseline and anticipates no needs upon discharge No barriers identified at this time to patient's safe discharge home w/family to assist; close outpatient f/u recommended. Plan: Anticipate DC home w/spouse via pov w/close outpatient f/u DAMI Lea Discharge Planning/Care Management CM Discharge Assessment Start: 08/22/22 13:05 Freq: Status: Active Protocol: Document 08/22/22 13:05 LU (Rec: 08/22/22 13:09 LU [id number]) Discharge Planning Assessment Assigned C Web Developer DAMI Morillo DPOA/Assigned Designee Name Marianela Montejo, spouse Contact Information [phone] Advance Directives? Yes Advance Directives on File Yes History Provided By Patient,Significant Other, Medical Record Prior Living Arrangements House Household Members spouse Type of transporation used prior to Drives own vehicle admit Independent with ADL's Yes Is patient alert and oriented? Yes Barriers to Discharge No Comment Home w/supportive spouse is expected Discharge Plan Home Transportation Arrangement Spouse Referrals Initiated None needed Additional Comment Following for needs Whiteboard Updated in Patient Room with Yes name and ext. # of C Web Developer
[2022-08-22 16:00] VITALS: BP 118/54; PULSE 63; RESP 17; TEMP 36.9; O2SAT 96
--- NOTE | 2022-08-22 17:24 | PC.NURSE ---
GI: Up and amb several times in hallway. Reports abd is better and not painful like yesterday. BT's present but hypo. Is tolerating clears. Asked if he needs anything for pain, he is tender in the abd but pt wants nothing at this time. Wants pain med when he goes to sleep.
[2022-08-22 20:05] VITALS: BP 109/67; PULSE 94; RESP 19; TEMP 37.6; O2SAT 96
[2022-08-22] MEDS: ATORVASTATIN 20 MG TABLET PO (20:43)
[2022-08-23] VITALS: BP 123/67; PULSE 79; RESP 20; TEMP 36.9; O2SAT 95
[2022-08-23] MEDS: PIPERACILLIN/TAZO 3.375 GM in SODIUM CHLORIDE 0.9% 100 ML IV ×3 (00:26→16:12)
[2022-08-23] MEDS: SODIUM CHLORIDE 0.9% 1,000 ML 75 ML IV ×2 (00:31→16:14)
[2022-08-23 06:00] VITALS: BP 125/70; PULSE 74; TEMP 36.8; O2SAT 95
[2022-08-23 06:11] LABS: Add Manual Diff / Slide Review NO; Basophils Absolute Auto 0 /uL (0-100); Basophils Percent Auto 0.3 % (0-2); Eosinophils Absolute Auto 100 /uL (0-450); Eosinophils Percent Auto 0.4 % (2-4); Hematocrit 36.1 % (41-53); Lymphocytes Absolute Auto 1300 /uL (1100-4500); Lymphocytes Percent Auto 8.4 % (25-40); Mean Corpuscular HGB Conc 33.1 % (30-36); Mean Corpuscular Hemoglobin 30.3 PG (26-34); Mean Corpuscular Volume 91.6 fL (80-100); Monocytes Absolute Auto 1300 /uL (0-900); Monocytes Percent Auto 8.2 % (3-14); Neutrophils Absolute Auto 13300 /uL (1500-7000); Neutrophils Percent Auto 82.7 % (50-75); Platelet Count 252 X10^3/uL (150-400); Red Blood Cell Count 3.94 X10^6/uL (4.5-5.9); Red Cell Distribution Width 13.8 % (11.6-14.8)
[2022-08-23 06:53] LABS: BUN Creatinine Ratio 9.4 (6-22); Blood Urea Nitrogen 8 mg/dL (9-20); Calcium 7.9 mg/dL (8.4-10.2); Carbon Dioxide 26 mmol/L (22-32); Chloride 100 mmol/L (98-107); Estimated Glomerular Filt Rate > 60 mL/min (>60); Glucose 120 mg/dL (80-110); HEMOLYSIS < 15 (0-50); Potassium 3.5 mmol/L (3.4-5.1); Sodium 133 mmol/L (137-145)
[2022-08-23] MEDS: ENOXAPARIN 40 MG/0.4 ML SYRINGE SUBCUT (08:15)
[2022-08-23] MEDS: ACETAMINOPHEN 325 MG TABLET 650 MG PO ×3 (08:17→21:15)
[2022-08-23] MEDS: OXYCODONE IR 5 MG TABLET PO ×3 (08:17→21:14)
[2022-08-23 09:00] VITALS: BP 123/71; PULSE 78; RESP 17; TEMP 37.6; O2SAT 94
[2022-08-23 12:00] VITALS: BP 132/70; PULSE 67; RESP 17; TEMP 36.8; O2SAT 97
--- NOTE | 2022-08-23 12:04 | P.PN_ITS ---
Subjective Subjective Date Patient Seen: 08/22/22 Interval history: No change today, remains a bit nauseous and continued mild abdominal pain. WBC is slightly improved today. No fever, chills. Starting to have some diarrhea today. Exam Vital Signs (past 8 hours): - 08/23/22 06:00 08/23/22 09:00 Temperature 98.2 F 99.6 F Pulse Rate 74 78 Respiratory Rate 17 Blood Pressure 125/70 123/71 Pulse Oximetry 95 94 Oxygen Flow Rate 0 0 Oxygen Delivery Method Room Air Oxygen Flow Rate 0 Narrative Exam Narrative: GEN: no distress HEENT: moist mucous membranes, PERRL NECK: trachea midline, no JVD CV: regular rate and rhythm, no murmurs PULM: clear bilaterally ABD: soft, tender to palpation in lower left/middle quandrant, nondistended, no organomegaly EXT: warm and well perfused with no edema NEURO: awake, alert, oriented, no focal deficits Objective Labs 08/23/22 05:15 08/23/22 05:15 Labs: Laboratory Results - last 24 hr 08/23/22 08/23/22 05:15 05:15 WBC 16.0 H RBC 3.94 L Hgb 12.0 L Hct 36.1 L MCV 91.6 MCH 30.3 MCHC 33.1 RDW 13.8 Plt Count 252 Neut % (Auto) 82.7 H Lymph % (Auto) 8.[address] [place] % (Auto) 8.2 Eos % (Auto) 0.4 L Baso % (Auto) 0.3 Neut # (Auto) 99692 H Lymph # (Auto) 1300 [place] # (Auto) 1300 H Eos # (Auto) 100 Baso # (Auto) 0 Sodium 133 L Potassium 3.5 Chloride 100 Carbon Dioxide 26 BUN 8 L Creatinine 0.85 Estimated GFR > 60 BUN/Creatinine Ratio 9.4 Glucose 120 H Calcium 7.9 L PFSH Medical History Asthma Chronic low back pain Erectile dysfunction Family history of prostate cancer Hearing loss History of colonic polyps Hypercholesteremia Mixed hyperlipidemia Obstructive sleep apnea (~1999) Sciatic nerve pain Seborrheic dermatitis Tinnitus Surgical History Anesthesia History of cholecystectomy (~2019) Hx of tonsillectomy (~1954) Otosclerosis (~1977) Family History Father Congestive heart failure Mother Dementia Sister Joint replaced Sister Joint replaced Social History details: (Marianela), 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 Hall, general surgery consulted and will follow -continue Zosyn -pain medications as needed -advanced diet as tolerated # urinary retention s/p Vo -admitted less than 1 week ago for urinary retention and Vo placed, plan was for outpatient urology follow-up which has not occurred yet -maintain Vo -f/u with outpatient urology -consider mary jo-max # hyperlipidemia, chronic -continue home statin Code status is full code. COVID negative. DVT prophylaxis with Lovenox. Proxy is spouse Marianela. Dispo: Discharge home with symptom improvement. Time Spent With Patient Critical Care time: I spent a total of [] minutes of critical care time on this patient's care today; this time is exclusive of procedural time. Quality VTE Deep Vein Thrombosis/Pulmonary Embolism Present on Admission: No
[2022-08-23] MEDS: POTASSIUM CHLORIDE 20 MEQ TAB 40 MEQ PO (12:29)
[2022-08-23 16:00] VITALS: BP 117/68; PULSE 59; RESP 17; TEMP 36.7; O2SAT 94
[2022-08-23] MEDS: ATORVASTATIN 20 MG TABLET PO (21:12)
[2022-08-24] VITALS: BP 104/57; PULSE 62; RESP 16; TEMP 36.9; O2SAT 96
[2022-08-24] MEDS: SODIUM CHLORIDE 0.9% 1,000 ML 75 ML IV (00:22)
[2022-08-24] MEDS: PIPERACILLIN/TAZO 3.375 GM in SODIUM CHLORIDE 0.9% 100 ML IV ×3 (01:01→17:46)
[2022-08-24] MEDS: OXYCODONE IR 5 MG TABLET PO ×3 (04:17→17:45)
[2022-08-24] MEDS: ACETAMINOPHEN 325 MG TABLET 650 MG PO ×2 (04:18→17:46)
[2022-08-24 05:53] LABS: Add Manual Diff / Slide Review NO; Basophils Absolute Auto 100 /uL (0-100); Basophils Percent Auto 0.6 % (0-2); Eosinophils Absolute Auto 100 /uL (0-450); Eosinophils Percent Auto 1.4 % (2-4); Hematocrit 31.6 % (41-53); Hemoglobin 10.8 g/dL (13.5-17.5); Lymphocytes Absolute Auto 1600 /uL (1100-4500); Lymphocytes Percent Auto 15.7 % (25-40); Mean Corpuscular HGB Conc 34.1 % (30-36); Mean Corpuscular Hemoglobin 31.3 PG (26-34); Mean Corpuscular Volume 91.7 fL (80-100); Monocytes Absolute Auto 700 /uL (0-900); Monocytes Percent Auto 6.8 % (3-14); Neutrophils Absolute Auto 7700 /uL (1500-7000); Neutrophils Percent Auto 75.5 % (50-75); Platelet Count 235 X10^3/uL (150-400); Red Blood Cell Count 3.45 X10^6/uL (4.5-5.9); Red Cell Distribution Width 13.7 % (11.6-14.8); White Blood Cell Count 10.2 X10^3/uL (4.5-11.0)
[2022-08-24 06:00] VITALS: BP 105/56; PULSE 49; RESP 16; TEMP 36.5; O2SAT 97
[2022-08-24 06:03] LABS: Blood Urea Nitrogen 6 mg/dL (9-20); Calcium 7.7 mg/dL (8.4-10.2); Carbon Dioxide 24 mmol/L (22-32); Chloride 105 mmol/L (98-107); Estimated Glomerular Filt Rate > 60 mL/min (>60); Glucose 105 mg/dL (80-110); HEMOLYSIS < 15 (0-50); Potassium 3.4 mmol/L (3.4-5.1); Sodium 134 mmol/L (137-145)
[2022-08-24] MEDS: ENOXAPARIN 40 MG/0.4 ML SYRINGE SUBCUT (08:33)
[2022-08-24 12:00] VITALS: BP 128/69; PULSE 56; RESP 16; TEMP 37.3; O2SAT 99
[2022-08-24 20:00] VITALS: BP 154/68; PULSE 54; RESP 17; TEMP 36.9; O2SAT 100
--- NOTE | 2022-08-24 20:09 | PM.PN.1 ---
Subjective Subjective Date Patient Seen: 08/22/22 Interval history: No change today, remains a bit nauseous and continued mild abdominal pain. WBC is slightly improved today. No fever, chills. Starting to have some diarrhea today. C. diff ordred Exam Vital Signs (past 8 hours): Oxygen Delivery Method Room Air Oxygen Flow Rate 0 Narrative Exam Narrative: GEN: no distress HEENT: moist mucous membranes, PERRL NECK: trachea midline, no JVD CV: regular rate and rhythm, no murmurs PULM: clear bilaterally ABD: soft, tender to palpation in lower left/middle quandrant, nondistended, no organomegaly EXT: warm and well perfused with no edema NEURO: awake, alert, oriented, no focal deficits Objective Labs 08/24/22 05:42 08/24/22 05:42 Labs: Laboratory Results - last 24 hr 08/24/22 08/24/22 05:42 05:42 WBC 10.2 RBC 3.45 L Hgb 10.8 L Hct 31.6 L MCV 91.7 MCH 31.3 MCHC 34.1 RDW 13.7 Plt Count 235 Neut % (Auto) 75.5 H Lymph % (Auto) 15.7 L [place] % (Auto) 6.8 Eos % (Auto) 1.4 L Baso % (Auto) 0.6 Neut # (Auto) 7700 H Lymph # (Auto) 1600 [place] # (Auto) 700 Eos # (Auto) 100 Baso # (Auto) 100 Sodium 134 L Potassium 3.4 Chloride 105 Carbon Dioxide 24 BUN 6 L Creatinine 0.86 Estimated GFR > 60 BUN/Creatinine Ratio 7.0 Glucose 105 Calcium 7.7 L PFS Medical History Asthma Chronic low back pain Erectile dysfunction Family history of prostate cancer Hearing loss History of colonic polyps Hypercholesteremia Mixed hyperlipidemia Obstructive sleep apnea (~1999) Sciatic nerve pain Seborrheic dermatitis Tinnitus Surgical History Anesthesia History of cholecystectomy (~2019) Hx of tonsillectomy (~1954) Otosclerosis (~1977) Family History Father Congestive heart failure Mother Dementia Sister Joint replaced Sister Joint replaced Social History details: (Marianela), 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 Hall, general surgery consulted and will follow -continue Zosyn -pain medications as needed -advanced diet as tolerated -check for C.diff with diarrhea. # urinary retention s/p Vo -admitted less than 1 week ago for urinary retention and Vo placed, plan was for outpatient urology follow-up which has not occurred yet -maintain Vo -f/u with outpatient urology -consider mary jo-max # hyperlipidemia, chronic -continue home statin Code status is full code. COVID negative. DVT prophylaxis with Lovenox. Proxy is spouse Marianela. Dispo: probable Discharge home with symptom improvement. Time Spent With Patient Critical Care time: I spent a total of [] minutes of critical care time on this patient's care today; this time is exclusive of procedural time. Quality VTE Deep Vein Thrombosis/Pulmonary Embolism Present on Admission: No
[2022-08-24] MEDS: ATORVASTATIN 20 MG TABLET PO (20:52)
[2022-08-25] MEDS: PIPERACILLIN/TAZO 3.375 GM in SODIUM CHLORIDE 0.9% 100 ML IV ×3 (00:40→18:00)
[2022-08-25 02:00] VITALS: BP 143/63; PULSE 55; RESP 16; TEMP 36.9; O2SAT 96
[2022-08-25] MEDS: ACETAMINOPHEN 325 MG TABLET 650 MG PO ×3 (04:33→20:49)
[2022-08-25] MEDS: OXYCODONE IR 5 MG TABLET PO ×3 (04:33→20:50)
[2022-08-25] MEDS: SODIUM CHLORIDE 0.9% FLUSH 10 ML IV ×2 (04:39→09:10)
--- NOTE | 2022-08-25 04:52 | PC.NURSE ---
Stool sample for C-diff. sent @ 6322.
[2022-08-25 05:20] LABS: Clostridium Difficile Tox PCR Negative for C. diff (Negative)
[2022-08-25 06:00] VITALS: BP 141/60; PULSE 55; RESP 16; TEMP 36.7; O2SAT 95
[2022-08-25 09:48] LABS: Add Manual Diff / Slide Review NO; Basophils Absolute Auto 0 /uL (0-100); Basophils Percent Auto 0.4 % (0-2); Eosinophils Absolute Auto 100 /uL (0-450); Hemoglobin 12.3 g/dL (13.5-17.5); Lymphocytes Absolute Auto 1600 /uL (1100-4500); Lymphocytes Percent Auto 14.5 % (25-40); Mean Corpuscular HGB Conc 34.3 % (30-36); Mean Corpuscular Hemoglobin 31.4 PG (26-34); Mean Corpuscular Volume 91.7 fL (80-100); Monocytes Absolute Auto 700 /uL (0-900); Monocytes Percent Auto 6.5 % (3-14); Neutrophils Absolute Auto 8400 /uL (1500-7000); Neutrophils Percent Auto 77.6 % (50-75); Platelet Count 322 X10^3/uL (150-400); Red Blood Cell Count 3.92 X10^6/uL (4.5-5.9); Red Cell Distribution Width 13.8 % (11.6-14.8); White Blood Cell Count 10.9 X10^3/uL (4.5-11.0)
[2022-08-25 10:00] LABS: BUN Creatinine Ratio 4.7 (6-22); Blood Urea Nitrogen 4 mg/dL (9-20); Calcium 8.2 mg/dL (8.4-10.2); Carbon Dioxide 26 mmol/L (22-32); Chloride 101 mmol/L (98-107); Estimated Glomerular Filt Rate > 60 mL/min (>60); Glucose 120 mg/dL (80-110); HEMOLYSIS < 15 (0-50); Sodium 134 mmol/L (137-145)
--- NOTE | 2022-08-25 10:29 | CM.DPNOTE ---
DCP Note According to FAHEEM Rivera, patient feeling much better today and there is a chance he could be discharged home FAHEEM Rivera does not anticipate any needs from this CM team; patient is planning to return home w/supportive spouse Following in case any DC needs or concerns arise JW
[2022-08-25] MEDS: POTASSIUM CHLORIDE 20 MEQ TAB 40 MEQ PO ×2 (12:37→18:37)
--- NOTE | 2022-08-25 14:26 | P.PN_ITS ---
Subjective Subjective Interval history: No change today, minimally tolerating a diet. Bowel movements have improved. We discussed options for continued management, with improvement in WBC surgery does not recommend additional CT at the moment, can stay for antibiotics here or discharge home. We discussed the risks and benefits of each and the patient wished to continue IV antibiotics here with his recent outpatient failure to see if his symptoms improve. Exam Vital Signs (past 8 hours): Oxygen Delivery Method Room Air Oxygen Flow Rate 0 Narrative Exam Narrative: GEN: no distress HEENT: moist mucous membranes, PERRL NECK: trachea midline, no JVD CV: regular rate and rhythm, no murmurs PULM: clear bilaterally ABD: soft, tender to palpation in lower left/middle quandrant, nondistended, no organomegaly EXT: warm and well perfused with no edema NEURO: awake, alert, oriented, no focal deficits Objective Labs 08/25/22 09:36 08/25/22 09:36 Labs: Laboratory Results - last 24 hr 08/25/22 08/25/22 08/25/22 04:26 09:36 09:36 WBC 10.9 RBC 3.92 L Hgb 12.3 L Hct 36.0 L MCV 91.7 MCH 31.4 MCHC 34.3 RDW 13.8 Plt Count 322 Neut % (Auto) 77.6 H Lymph % (Auto) 14.5 L [place] % (Auto) 6.5 Eos % (Auto) 1.0 L Baso % (Auto) 0.4 Neut # (Auto) 8400 H Lymph # (Auto) 1600 [place] # (Auto) 700 Eos # (Auto) 100 Baso # (Auto) 0 Sodium 134 L Potassium 3.0 L Chloride 101 Carbon Dioxide 26 BUN 4 L Creatinine 0.85 Estimated GFR > 60 BUN/Creatinine Ratio 4.7 L Glucose 120 H Calcium 8.2 L C. difficile Tox (PCR) Negative for c. 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 Hall, then Dr. Rodriguez, with general surgery consulted. Appreciate their time and assistance, possible CT drainage pending discussion with radiology? Discussed with surgeon wet cotton feeder today. -continue Zosyn for now -pain medications as needed -advanced diet as tolerated -C. diff negative 08/24. # urinary retention s/p Vo -admitted less than 1 week ago for urinary retention and Vo placed, plan was for outpatient urology follow-up which has not occurred yet -maintain Vo -f/u with outpatient urology -consider mary jo-max # hyperlipidemia, chronic -continue home statin #hypokalemia - repleted Code status is full code. COVID negative. DVT prophylaxis with Lovenox. Proxy is spouse Marianela. Dispo: probable Discharge home with symptom improvement, timing remains unclear could be 1-3 days, ? IR drainage need. Time Spent With Patient Critical Care time: I spent a total of [] minutes of critical care time on this patient's care today; this time is exclusive of procedural time. Quality VTE Deep Vein Thrombosis/Pulmonary Embolism Present on Admission: No
[2022-08-25 14:39] VITALS: BP 131/75; PULSE 52; RESP 16; TEMP 36.9; O2SAT 97
[2022-08-25 18:00] VITALS: BP 133/67; PULSE 61; RESP 16; TEMP 36.9; O2SAT 98
[2022-08-25] MEDS: ATORVASTATIN 20 MG TABLET PO (20:49)
--- NOTE | 2022-08-25 21:55 | PC.NURSE ---
Patient is alert and oriented. Breath sounds CTA with RA sat of 98%. HRR. Denied nausea. BT present and abdomen is soft but has tenderness/pain in low abdomen and was medicated with Tylenol + oxycodone at 2049. Indwelling catheter present on admit related to urinary retention; urine is clear, dark yellow. Is independent with mobility and is steady on feet although does endorse feeling weak. Refusing SCD's so reminded to ankle wave. Fall risk score is moderate; bed alarm not in use at this time.
[2022-08-25 23:45] VITALS: BP 121/61; PULSE 49; RESP 15; TEMP 36.4; O2SAT 95
[2022-08-26] MEDS: SODIUM CHLORIDE 0.9% FLUSH 10 ML IV ×3 (01:05→18:02)
[2022-08-26] MEDS: PIPERACILLIN/TAZO 3.375 GM in SODIUM CHLORIDE 0.9% 100 ML IV ×3 (01:05→18:00)
[2022-08-26] MEDS: OXYCODONE IR 5 MG TABLET PO ×3 (04:14→18:01)
[2022-08-26] MEDS: ACETAMINOPHEN 325 MG TABLET 650 MG PO ×3 (04:14→18:02)
[2022-08-26 05:34] VITALS: BP 148/56; PULSE 49; RESP 15; TEMP 36.8; O2SAT 95
[2022-08-26 07:17] LABS: Add Manual Diff / Slide Review NO; Basophils Absolute Auto 0 /uL (0-100); Basophils Percent Auto 0.3 % (0-2); Eosinophils Absolute Auto 200 /uL (0-450); Eosinophils Percent Auto 1.8 % (2-4); Hematocrit 31.9 % (41-53); Hemoglobin 10.9 g/dL (13.5-17.5); Lymphocytes Absolute Auto 1100 /uL (1100-4500); Lymphocytes Percent Auto 9.7 % (25-40); Mean Corpuscular HGB Conc 34.4 % (30-36); Mean Corpuscular Hemoglobin 31.2 PG (26-34); Mean Corpuscular Volume 90.9 fL (80-100); Monocytes Absolute Auto 700 /uL (0-900); Monocytes Percent Auto 5.8 % (3-14); Neutrophils Absolute Auto 9500 /uL (1500-7000); Neutrophils Percent Auto 82.4 % (50-75); Platelet Count 276 X10^3/uL (150-400); Red Cell Distribution Width 13.7 % (11.6-14.8); White Blood Cell Count 11.5 X10^3/uL (4.5-11.0)
[2022-08-26 07:24] LABS: BUN Creatinine Ratio 5.1 (6-22); Blood Urea Nitrogen 4 mg/dL (9-20); Carbon Dioxide 27 mmol/L (22-32); Chloride 106 mmol/L (98-107); Estimated Glomerular Filt Rate > 60 mL/min (>60); Glucose 100 mg/dL (80-110); HEMOLYSIS < 15 (0-50); Potassium 3.6 mmol/L (3.4-5.1); Sodium 137 mmol/L (137-145)
[2022-08-26] MEDS: SODIUM CHLORIDE 0.9% 250 ML 21 ML IV (08:15)
[2022-08-26] MEDS: ENOXAPARIN 40 MG/0.4 ML SYRINGE SUBCUT (08:24)
[2022-08-26] MEDS: HYDROMORPHONE 0.5 MG INJ IV ×3 (10:04→18:01)
--- NOTE | 2022-08-26 10:15 | PM.PN.1 ---
Subjective Subjective Interval history: No change today, minimally tolerating a diet. Bowel movements have improved. We discussed options for continued management, with improvement in WBC surgery has not recommend additional CT at the moment, can stay for antibiotics here or discharge home. We discussed the risks and benefits of each and the patient wished to continue IV antibiotics here with his recent outpatient failure to see if his symptoms improve. Currently had a smal BM today with mutiple small pieces of brown stool. Passing gas and able to slowly increase oral intake. Pain control improvin. Exam Vital Signs (past 8 hours): - 08/26/22 05:34 Temperature 98.3 F Pulse Rate 49 L Respiratory Rate 15 Blood Pressure 148/56 H Pulse Oximetry 95 Oxygen Flow Rate 0 Oxygen Delivery Method Room Air Oxygen Flow Rate 0 Narrative Exam Narrative: GEN: no distress HEENT: moist mucous membranes, PERRL NECK: trachea midline, no JVD CV: regular rate and rhythm, no murmurs PULM: clear bilaterally ABD: soft, tender to palpation in lower left/middle quandrant, nondistended, no organomegaly, bowel sounds present EXT: warm and well perfused with no edema NEURO: awake, alert, oriented, no focal deficits Objective Labs 08/26/22 06:48 08/26/22 06:48 Labs: Laboratory Results - last 24 hr 08/26/22 08/26/22 06:48 06:48 WBC 11.5 H RBC 3.50 L Hgb 10.9 L Hct 31.9 L MCV 90.9 MCH 31.2 MCHC 34.4 RDW 13.7 Plt Count 276 Neut % (Auto) 82.4 H Lymph % (Auto) 9.7 L [place] % (Auto) 5.8 Eos % (Auto) 1.8 L Baso % (Auto) 0.3 Neut # (Auto) 9500 H Lymph # (Auto) 1100 [place] # (Auto) 700 Eos # (Auto) 200 Baso # (Auto) 0 Sodium 137 Potassium 3.6 Chloride 106 Carbon Dioxide 27 BUN 4 L Creatinine 0.79 Estimated GFR > 60 BUN/Creatinine Ratio 5.1 L Glucose 100 Calcium 8.0 L PFSH Medical History Asthma Chronic low back pain Erectile dysfunction Family history of prostate cancer Hearing loss History of colonic polyps Hypercholesteremia Mixed hyperlipidemia Obstructive sleep apnea (~1999) Sciatic nerve pain Seborrheic dermatitis Tinnitus Surgical History Anesthesia History of cholecystectomy (~2019) Hx of tonsillectomy (~1954) Otosclerosis (~1977) Family History Father Congestive heart failure Mother Dementia Sister Joint replaced Sister Joint replaced Social History details: (Marianela), 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, 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 Hall, then Dr. Rodriguez, with general surgery consulted. Appreciate their time and assistance, possible CT drainage pending discussion with radiology? Possible followup CT but if labs and clinical picture consistently improved likely not. -continue Zosyn for now -pain medications as needed -advanced diet as tolerated -C. diff negative 08/24. # urinary retention s/p Vo -admitted less than 1 week ago for urinary retention and Vo placed, plan was for outpatient urology follow-up which has not occurred yet -maintain Vo -f/u with outpatient urology -consider mary jo-max, will start today # hyperlipidemia, chronic -continue home statin #hypokalemia ?- repleted Follow labs and clinically. Code status is full code. COVID negative. DVT prophylaxis with Lovenox. Proxy is spouse Marianela. Dispo: probable Discharge home with symptom improvement, timing remains unclear could be 1-2 days, ? IR drainage need - if improves consistently then likely not. Time Spent With Patient Critical Care time: I spent a total of [] minutes of critical care time on this patient's care today; this time is exclusive of procedural time. Quality VTE Deep Vein Thrombosis/Pulmonary Embolism Present on Admission: No
--- NOTE | 2022-08-26 11:04 | P.PN_ITS ---
Subjective Subjective Date Patient Seen: 08/25/22 Time Patient Seen: 13:00 Interval history: Patient says he is feeling better his pain is under better control. He is still not eating very much and his pain is still present. He still would like to keep the Vo in place because he feels that it is relieving the pressure. Exam Vital Signs (past 8 hours): - 08/26/22 05:34 Temperature 98.3 F Pulse Rate 49 L Respiratory Rate 15 Blood Pressure 148/56 H Pulse Oximetry 95 Oxygen Flow Rate 0 Oxygen Delivery Method Room Air Oxygen Flow Rate 0 Const General: cooperative, healthy appearing and comfortable Other: Patient is ambulating independently GI Palpation: soft and tender (Mild tenderness to deep palpation suprapubic) Objective Labs 08/26/22 06:48 08/26/22 06:48 Labs: Laboratory Results - last 24 hr 08/26/22 08/26/22 06:48 06:48 WBC 11.5 H RBC 3.50 L Hgb 10.9 L Hct 31.9 L MCV 90.9 MCH 31.2 MCHC 34.4 RDW 13.7 Plt Count 276 Neut % (Auto) 82.4 H Lymph % (Auto) 9.7 L [place] % (Auto) 5.8 Eos % (Auto) 1.8 L Baso % (Auto) 0.3 Neut # (Auto) 9500 H Lymph # (Auto) 1100 [place] # (Auto) 700 Eos # (Auto) 200 Baso # (Auto) 0 Sodium 137 Potassium 3.6 Chloride 106 Carbon Dioxide 27 BUN 4 L Creatinine 0.79 Estimated GFR > 60 BUN/Creatinine Ratio 5.1 L Glucose 100 Calcium 8.0 L PFSH Medical History Asthma Chronic low back pain Erectile dysfunction Family history of prostate cancer Hearing loss History of colonic polyps Hypercholesteremia Mixed hyperlipidemia Obstructive sleep apnea (~1999) Sciatic nerve pain Seborrheic dermatitis Tinnitus Surgical History Anesthesia History of cholecystectomy (~2019) Hx of tonsillectomy (~1954) Otosclerosis (~1977) Family History Father Congestive heart failure Mother Dementia Sister Joint replaced Sister Joint replaced Social History details: (Marianela), 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, 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 Pain medication as needed and continue to encourage to ambulate. I also would like to see him eating more prior to discharge. I think whether he goes home this or will be here on Sunday I would like to repeat his CT scan on Sunday. I will then reconsult with the radiologist's about opportunities for drainage. I did discuss the prior CT scan in person and interpreted the CT results personally with the radiologist to discuss and who concurs with plan. In summary the patient should have a full 14 days of antibiotics including his days of IV. I would transition him to oral antibiotics of Augmentin 500 q.12 and oral pain medication when he is eating enough and pain controlled well enough that he is ready to go home. I will have him follow-up with me on Sunday in my office if he does discharged this . He should have a CT scan on Sunday as an outpatient in that case. Time Spent With Patient Critical Care time: I spent a total of [] minutes of critical care time on this patient's care today; this time is exclusive of procedural time. Quality VTE Deep Vein Thrombosis/Pulmonary Embolism Present on Admission: No
[2022-08-26 12:00] VITALS: BP 137/69; PULSE 56; RESP 18; TEMP 36.1; O2SAT 99
--- NOTE | 2022-08-26 13:22 | CM.DPNOTE ---
Discharge Planning Note: Dr Rodriguez in to see patient, refer to her note. Possible dc this or Sunday. Plan: When medically cleared dc home to care of spouse. Michelle Holguin RN/DCP
[2022-08-26] MEDS: TAMSULOSIN 0.4 MG CAPSULE PO (13:56)
[2022-08-26] MEDS: PSYLLIUM HUSK 1 PACKET PO ×2 (13:56→21:03)
--- NOTE | 2022-08-26 13:58 | PM.PN.1 ---
Subjective Subjective Interval history: Overall doing better today. Tolerating more food than normal and pain still present but medication is helping Vo is still in place this morning Exam Vital Signs (past 8 hours): - 08/26/22 12:00 Temperature 96.9 F L Pulse Rate 56 L Respiratory Rate 18 Blood Pressure 137/69 Pulse Oximetry 99 Oxygen Flow Rate 0 Oxygen Delivery Method Room Air Oxygen Flow Rate 0 Narrative Exam Narrative: 72-year-old male is awake alert appropriate and pleasant. He is seated in his chair and eating some food looking better today The abdomen is still moderately tender in the suprapubic area with deep palpation Vo catheter is in place draining clear yellow urine. This catheter was removed during the examination around noon today. Objective Labs 08/26/22 06:48 08/26/22 06:48 Labs: Laboratory Results - last 24 hr 08/26/22 08/26/22 06:48 06:48 WBC 11.5 H RBC 3.50 L Hgb 10.9 L Hct 31.9 L MCV 90.9 MCH 31.2 MCHC 34.4 RDW 13.7 Plt Count 276 Neut % (Auto) 82.4 H Lymph % (Auto) 9.7 L [place] % (Auto) 5.8 Eos % (Auto) 1.8 L Baso % (Auto) 0.3 Neut # (Auto) 9500 H Lymph # (Auto) 1100 [place] # (Auto) 700 Eos # (Auto) 200 Baso # (Auto) 0 Sodium 137 Potassium 3.6 Chloride 106 Carbon Dioxide 27 BUN 4 L Creatinine 0.79 Estimated GFR > 60 BUN/Creatinine Ratio 5.1 L Glucose 100 Calcium 8.0 L PFSH Medical History Asthma Chronic low back pain Erectile dysfunction Family history of prostate cancer Hearing loss History of colonic polyps Hypercholesteremia Mixed hyperlipidemia Obstructive sleep apnea (~1999) Sciatic nerve pain Seborrheic dermatitis Tinnitus Surgical History Anesthesia History of cholecystectomy (~2019) Hx of tonsillectomy (~1954) Otosclerosis (~1977) Family History Father Congestive heart failure Mother Dementia Sister Joint replaced Sister Joint replaced Social History details: (Marianela), 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, 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 Continue DVT prophylaxis. Continue IV antibiotics. We are going to plan a CT scan on Sunday. This has been ordered. If he is well enough over the weekend to be discharged home I would send him on a total of a 14 day course of antibiotics and switch to Augmentin 500 twice a day to complete the course. If he does go home this weekend he can have an outpatient CT on Sunday and see me in my office on Sunday. I have also ordered fiber supplement twice daily to be given along with his general diet since he is now taking a little bit more oral food than he was yesterday. Time Spent With Patient Critical Care time: I spent a total of [] minutes of critical care time on this patient's care today; this time is exclusive of procedural time. Quality VTE Deep Vein Thrombosis/Pulmonary Embolism Present on Admission: No
[2022-08-26 18:00] VITALS: BP 130/64; PULSE 56; RESP 18; TEMP 36.5; O2SAT 99
[2022-08-26] MEDS: ATORVASTATIN 20 MG TABLET PO (21:03)
[2022-08-26 22:30] VITALS: BP 149/62; PULSE 78; RESP 15; TEMP 37.2; O2SAT 99
--- NOTE | 2022-08-26 22:47 | PC.NURSE ---
Patient is alert and oriented with flat affect. Breath sounds CTA with RA sat of 99%. HRR but bradycardic with rate in 50's although has dropped down into 40's at times; patient reports normal HR is low. Denies nausea. BT present and abdomen is soft; continues to have tenderness in low abdomen but rates severity as only 1/10. Started on Metamucil today and states he had a more formed stool earlier today. Cathter removed on previous shift and has been able to void although does endorse some burning with urination. Scrotum remains swollen but appears less so tonight. Independent with mobility. Refusing SCD's. Fall risk score is moderate but patient steady on feet so alarm is not in use at this time.
[2022-08-27] MEDS: OXYCODONE IR 5 MG TABLET PO ×3 (00:52→21:07)
[2022-08-27] MEDS: ACETAMINOPHEN 325 MG TABLET 650 MG PO ×3 (00:52→21:07)
[2022-08-27] MEDS: PIPERACILLIN/TAZO 3.375 GM in SODIUM CHLORIDE 0.9% 100 ML IV ×3 (00:54→17:19)
[2022-08-27] MEDS: SODIUM CHLORIDE 0.9% FLUSH 10 ML IV ×2 (00:55→08:58)
[2022-08-27 05:09] VITALS: BP 144/76; PULSE 48; RESP 15; TEMP 36.6; O2SAT 95
[2022-08-27 07:53] LABS: Add Manual Diff / Slide Review NO; Basophils Absolute Auto 0 /uL (0-100); Basophils Percent Auto 0.4 % (0-2); Eosinophils Absolute Auto 300 /uL (0-450); Eosinophils Percent Auto 2.7 % (2-4); Hematocrit 33.7 % (41-53); Hemoglobin 11.4 g/dL (13.5-17.5); Lymphocytes Absolute Auto 1400 /uL (1100-4500); Lymphocytes Percent Auto 14.8 % (25-40); Mean Corpuscular Hemoglobin 31.2 PG (26-34); Mean Corpuscular Volume 91.7 fL (80-100); Monocytes Absolute Auto 700 /uL (0-900); Monocytes Percent Auto 6.7 % (3-14); Neutrophils Absolute Auto 7300 /uL (1500-7000); Neutrophils Percent Auto 75.4 % (50-75); Platelet Count 312 X10^3/uL (150-400); Red Blood Cell Count 3.67 X10^6/uL (4.5-5.9); Red Cell Distribution Width 13.5 % (11.6-14.8); White Blood Cell Count 9.7 X10^3/uL (4.5-11.0)
[2022-08-27 08:03] LABS: BUN Creatinine Ratio 6.7 (6-22); Blood Urea Nitrogen 6 mg/dL (9-20); Calcium 8.2 mg/dL (8.4-10.2); Carbon Dioxide 32 mmol/L (22-32); Chloride 103 mmol/L (98-107); Estimated Glomerular Filt Rate > 60 mL/min (>60); Glucose 92 mg/dL (80-110); HEMOLYSIS < 15 (0-50); Potassium 3.9 mmol/L (3.4-5.1); Sodium 137 mmol/L (137-145)
[2022-08-27] MEDS: ENOXAPARIN 40 MG/0.4 ML SYRINGE SUBCUT (08:55)
[2022-08-27] MEDS: TAMSULOSIN 0.4 MG CAPSULE PO (08:55)
[2022-08-27] MEDS: PSYLLIUM HUSK 1 PACKET PO ×2 (09:12→21:02)
--- NOTE | 2022-08-27 09:31 | PM.PN.1 ---
Subjective Subjective Interval history: Bowel movements have improved. Has had several bowel movements in the last 24 hours. Each one is getting less painful. With improvement in WBC surgery has not recommend additional CT at the moment, however patient mentioned surgery would like an ultrasound. Passing gas and able to increase oral intake. Pain control improving. Exam Vital Signs (past 8 hours): - 08/27/22 05:09 Temperature 97.8 F Pulse Rate 48 L Respiratory Rate 15 Blood Pressure 144/76 H Pulse Oximetry 95 Oxygen Flow Rate 0 Oxygen Delivery Method Room Air Oxygen Flow Rate 0 Narrative Exam Narrative: GEN: no distress HEENT: moist mucous membranes, PERRL NECK: trachea midline, no JVD CV: regular rate and rhythm, no murmurs PULM: clear bilaterally ABD: soft, tender to palpation in lower left/middle quandrant, nondistended, no organomegaly, bowel sounds present EXT: warm and well perfused with no edema NEURO: awake, alert, oriented, no focal deficits Objective Labs 08/27/22 07:41 08/27/22 07:41 Labs: Laboratory Results - last 24 hr 08/27/22 08/27/22 07:41 07:41 WBC 9.7 RBC 3.67 L Hgb 11.4 L Hct 33.7 L MCV 91.7 MCH 31.2 MCHC 34.0 RDW 13.5 Plt Count 312 Neut % (Auto) 75.4 H Lymph % (Auto) 14.8 L [place] % (Auto) 6.7 Eos % (Auto) 2.7 Baso % (Auto) 0.4 Neut # (Auto) 7300 H Lymph # (Auto) 1400 [place] # (Auto) 700 Eos # (Auto) 300 Baso # (Auto) 0 Sodium 137 Potassium 3.9 Chloride 103 Carbon Dioxide 32 BUN 6 L Creatinine 0.89 Estimated GFR > 60 BUN/Creatinine Ratio 6.7 Glucose 92 Calcium 8.2 L PFSH Medical History Asthma Chronic low back pain Erectile dysfunction Family history of prostate cancer Hearing loss History of colonic polyps Hypercholesteremia Mixed hyperlipidemia Obstructive sleep apnea (~1999) Sciatic nerve pain Seborrheic dermatitis Tinnitus Surgical History Anesthesia History of cholecystectomy (~2019) Hx of tonsillectomy (~1954) Otosclerosis (~1977) Family History Father Congestive heart failure Mother Dementia Sister Joint replaced Sister Joint replaced Social History details: (Marianela), 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, 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 Hall, then Dr. Rodriguez, with general surgery consulted. Appreciate their time and assistance, possible CT drainage pending discussion with radiology? Possible followup CT but if labs and clinical picture consistently improved and so will not do a CT. At this time patient mentions that surgery would like a ultrasound. We will let them order. -continue Zosyn for now -pain medications as needed -advanced diet as tolerated -C. diff negative 08/24. # urinary retention s/p Vo -admitted less than 1 week ago for urinary retention and Vo placed, plan was for outpatient urology follow-up which has not occurred yet -maintain Vo -f/u with outpatient urology -consider mary jo-max, started yesterday # hyperlipidemia, chronic -continue home statin #hypokalemia ?- repleted Follow labs and clinically. Code status is full code. COVID negative. DVT prophylaxis with Lovenox. Proxy is spouse Marianela. Dispo: probable Discharge home with symptom improvement, timing remains unclear could be today or tomorrow depending clearance by surgery. With bowel movements and eating the patient could be transitioned on discharge to oral antibiotics. Time Spent With Patient Critical Care time: I spent a total of [] minutes of critical care time on this patient's care today; this time is exclusive of procedural time. Quality VTE Deep Vein Thrombosis/Pulmonary Embolism Present on Admission: No
--- NOTE | 2022-08-27 10:22 | PC.NURSE ---
Pt up in chair presently. Independent in the room. Calls for needs appropriately.
[2022-08-27 12:00] VITALS: BP 128/67; PULSE 49; RESP 18; TEMP 36.2; O2SAT 98
--- NOTE | 2022-08-27 13:26 | CM.DPNOTE ---
Discharge Planning Note: Patient improving, walking halls with spouse, bowels moving per nursing. Per Dr Rodriguez note yesterday will need a CT tomorrow either inpatient or outpatient, depending if discharged or note. Dr Rodriguez to see patient today. Plan: When medically cleared dc home to care of supportive spouse Diane. Michelle Holguin RN/DCP
--- NOTE | 2022-08-27 15:05 | P.PN_ITS ---
Subjective Subjective Date Patient Seen: 08/27/22 Interval history: doing ok. still with abdominal pain, but improved with medication. tolerating more food. voiding trial successful yesterday and watt removed. Exam Vital Signs (past 8 hours): - 08/27/22 12:00 Temperature 97.1 F L Pulse Rate 49 L Respiratory Rate 18 Blood Pressure 128/67 Pulse Oximetry 98 Oxygen Flow Rate 0 Oxygen Delivery Method Room Air Oxygen Flow Rate 0 Narrative Exam Narrative: ambulating with walker in [place]. marking machine tender suprapubic with palpation. Objective Labs 08/27/22 07:41 08/27/22 07:41 Labs: Laboratory Results - last 24 hr 08/27/22 08/27/22 07:41 07:41 WBC 9.7 RBC 3.67 L Hgb 11.4 L Hct 33.7 L MCV 91.7 MCH 31.2 MCHC 34.0 RDW 13.5 Plt Count 312 Neut % (Auto) 75.4 H Lymph % (Auto) 14.8 L [place] % (Auto) 6.7 Eos % (Auto) 2.7 Baso % (Auto) 0.4 Neut # (Auto) 7300 H Lymph # (Auto) 1400 [place] # (Auto) 700 Eos # (Auto) 300 Baso # (Auto) 0 Sodium 137 Potassium 3.9 Chloride 103 Carbon Dioxide 32 BUN 6 L Creatinine 0.89 Estimated GFR > 60 BUN/Creatinine Ratio 6.7 Glucose 92 Calcium 8.2 L PFSH Medical History Asthma Chronic low back pain Erectile dysfunction Family history of prostate cancer Hearing loss History of colonic polyps Hypercholesteremia Mixed hyperlipidemia Obstructive sleep apnea (~1999) Sciatic nerve pain Seborrheic dermatitis Tinnitus Surgical History Anesthesia History of cholecystectomy (~2019) Hx of tonsillectomy (~1954) Otosclerosis (~1977) Family History Father Congestive heart failure Mother Dementia Sister Joint replaced Sister Joint replaced Social History details: (Marianela), 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, 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 If so, will do that prior to discharge. Maybe able to go tomorrow after drain placement or with office follow up if not drain indicated on CT. For now, continue IV abtx and DVT ppx. will follow Time Spent With Patient Critical Care time: I spent a total of [] minutes of critical care time on this patient's care today; this time is exclusive of procedural time. Quality VTE Deep Vein Thrombosis/Pulmonary Embolism Present on Admission: No
[2022-08-27 18:00] VITALS: BP 139/67; PULSE 59; RESP 18; TEMP 36.6; O2SAT 98
[2022-08-27] MEDS: ATORVASTATIN 20 MG TABLET PO (21:03)
[2022-08-28] VITALS: BP 142/68; PULSE 54; TEMP 37.1; O2SAT 97
[2022-08-28] MEDS: PIPERACILLIN/TAZO 3.375 GM in SODIUM CHLORIDE 0.9% 100 ML IV ×3 (01:26→17:33)
--- NOTE | 2022-08-28 05:00 | DI.CT.S_ITS ---
PROCEDURE: CT ABDOMEN PELVIS W CON INDICATIONS: Follow-up diverticular abscess TECHNIQUE: After the administration of oral and intravenous contrast, axial sections were acquired from the lung bases to the pubic symphysis. Coronal and sagittal reformats were performed. For radiation dose reduction, the following was used: automated exposure control, adjustment of mA and/or kV according to patient size. COMPARISON:[facility], CT, CT ABDOMEN PELVIS W CON, 08/21/2022, 10:04. FINDINGS: Image quality: Excellent. Lung bases: Unremarkable. Heart: No significant findings. ABDOMEN: Liver: Unremarkable. Gallbladder: Absent. Biliary ducts: Unremarkable. Pancreas: Unremarkable. Spleen: Unremarkable. Adrenal Glands: Unremarkable. Kidneys and Ureters: Unremarkable. Stomach and Bowel: Duodenal diverticulum. Persistent inflammatory changes within the pelvis, with associated bowel wall thickening. New multiloculated abscess within the deep pelvis. The largest components measure 2.5 x 4.1 cm in the deep pelvis on the left (/70), and 4.4 x 2.7 cm in the deep pelvis on the right (/). Peritoneum: No abnormal intraperitoneal fluid. No free air. Ventral Wall: No hernia. Abdominal Nodes: No retroperitoneal or mesenteric adenopathy by size criteria. Vessels: Aorta and inferior vena cava are normal in size. PELVIS: Pelvic Organs: Unremarkable. Bladder: Unremarkable. Pelvic Nodes: No enlarged lymph nodes. Miscellaneous: No inguinal hernias are seen. Bones: Unremarkable. IMPRESSION: Persistent inflammatory changes within the pelvis, with associated bowel wall thickening. New multiloculated abscess within the deep pelvis. The largest components measure 2.5 x 4.1 cm in the deep pelvis on the left (/70), and 4.4 x 2.7 cm in the deep pelvis on the right (/25). Efforts were being made to contact ordering provider, Dr. Ronald Hall, regarding these findings at time of dictation. Dictated by: Lemuel Jurado M.D. on 08/28/2022 at 11:20 Approved by: Lemuel Jurado M.D. on 08/28/2022 at 11:36
[2022-08-28 06:00] VITALS: BP 154/75; PULSE 54; TEMP 36.8; O2SAT 96
[2022-08-28 07:05] LABS: Add Manual Diff / Slide Review NO; Basophils Absolute Auto 0 /uL (0-100); Basophils Percent Auto 0.4 % (0-2); Eosinophils Absolute Auto 300 /uL (0-450); Eosinophils Percent Auto 3.5 % (2-4); Hematocrit 34.2 % (41-53); Hemoglobin 11.5 g/dL (13.5-17.5); Lymphocytes Absolute Auto 1200 /uL (1100-4500); Lymphocytes Percent Auto 14.1 % (25-40); Mean Corpuscular HGB Conc 33.7 % (30-36); Mean Corpuscular Volume 91.9 fL (80-100); Monocytes Absolute Auto 600 /uL (0-900); Monocytes Percent Auto 7.1 % (3-14); Neutrophils Absolute Auto 6400 /uL (1500-7000); Neutrophils Percent Auto 74.9 % (50-75); Platelet Count 368 X10^3/uL (150-400); Red Blood Cell Count 3.72 X10^6/uL (4.5-5.9); Red Cell Distribution Width 13.8 % (11.6-14.8); White Blood Cell Count 8.6 X10^3/uL (4.5-11.0)
[2022-08-28 07:22] LABS: BUN Creatinine Ratio 6.6 (6-22); Blood Urea Nitrogen 6 mg/dL (9-20); Calcium 8.4 mg/dL (8.4-10.2); Carbon Dioxide 30 mmol/L (22-32); Chloride 104 mmol/L (98-107); Estimated Glomerular Filt Rate > 60 mL/min (>60); Glucose 96 mg/dL (80-110); HEMOLYSIS < 15 (0-50); Potassium 3.7 mmol/L (3.4-5.1); Sodium 137 mmol/L (137-145)
--- NOTE | 2022-08-28 08:30 | P.PN_ITS ---
Subjective Subjective Date Patient Seen: 08/28/22 Time Patient Seen: 08:30 Interval history: Alfonso feels marginally better today. He is drinking oral contrast for his upcoming CT scan. Exam Vital Signs (past 8 hours): - 08/28/22 06:00 Temperature 98.2 F Pulse Rate 54 L Blood Pressure 154/75 H Pulse Oximetry 96 Oxygen Flow Rate 0 Oxygen Delivery Method Room Air Oxygen Flow Rate 0 Const General: No acute distress Objective Labs 08/28/22 06:52 08/28/22 06:52 Labs: Laboratory Results - last 24 hr 08/28/22 08/28/22 06:52 06:52 WBC 8.6 RBC 3.72 L Hgb 11.5 L Hct 34.2 L MCV 91.9 MCH 31.0 MCHC 33.7 RDW 13.8 Plt Count 368 Neut % (Auto) 74.9 Lymph % (Auto) 14.1 L [place] % (Auto) 7.1 Eos % (Auto) 3.5 Baso % (Auto) 0.4 Neut # (Auto) 6400 Lymph # (Auto) 1200 [place] # (Auto) 600 Eos # (Auto) 300 Baso # (Auto) 0 Sodium 137 Potassium 3.7 Chloride 104 Carbon Dioxide 30 BUN 6 L Creatinine 0.91 Estimated GFR > 60 BUN/Creatinine Ratio 6.6 Glucose 96 Calcium 8.4 PFSH Medical History Asthma Chronic low back pain Erectile dysfunction Family history of prostate cancer Hearing loss History of colonic polyps Hypercholesteremia Mixed hyperlipidemia Obstructive sleep apnea (~1999) Sciatic nerve pain Seborrheic dermatitis Tinnitus Surgical History Anesthesia History of cholecystectomy (~2019) Hx of tonsillectomy (~1954) Otosclerosis (~1977) Family History Father Congestive heart failure Mother Dementia Sister Joint replaced Sister Joint replaced Social History details: (Marianela), 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, 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 Quality VTE Deep Vein Thrombosis/Pulmonary Embolism Present on Admission: No
[2022-08-28] MEDS: ENOXAPARIN 40 MG/0.4 ML SYRINGE SUBCUT (09:40)
[2022-08-28] MEDS: PSYLLIUM HUSK 1 PACKET PO ×2 (09:41→21:31)
[2022-08-28] MEDS: ACETAMINOPHEN 325 MG TABLET 650 MG PO ×2 (09:42→21:34)
[2022-08-28] MEDS: TAMSULOSIN 0.4 MG CAPSULE PO (09:42)
[2022-08-28] MEDS: SODIUM CHLORIDE 0.9% FLUSH 10 ML IV (09:42)
[2022-08-28 12:00] VITALS: BP 141/73; PULSE 49; RESP 18; TEMP 36.3; O2SAT 98
--- NOTE | 2022-08-28 16:07 | P.PN_ITS ---
Subjective Subjective Interval history: Patient feeling better today continues to have bowel movements but largely are pellet-like stools. Had a CT earlier today and this demonstrated persistent inflammatory changes within the pelvis, with associated bowel wall thickening. New multiloculated abscess within the deep pelvis.? The largest components measure 2.5 x 4.1 cm in the deep pelvis on the left (), and 4.4 x 2.7 cm in the deep pelvis on the right (08/19). Radiologist has reached out to the surgeon Dr. Hall and a decision will be made for treatment by Dr. Hall. Dr. Hall is busy and surgeon will see the patient after surgery. Exam Vital Signs (past 8 hours): - 08/28/22 12:00 Temperature 97.3 F L Pulse Rate 49 L Respiratory Rate 18 Blood Pressure 141/73 H Pulse Oximetry 98 Oxygen Flow Rate 0 Oxygen Delivery Method Room Air Oxygen Flow Rate 0 Narrative Exam Narrative: GEN: no distress HEENT: moist mucous membranes, PERRL NECK: trachea midline, no JVD CV: regular rate and rhythm, no murmurs PULM: clear bilaterally ABD: soft, minimal tenderness to palpation in lower left/middle quandrant, nondistended, no organomegaly, bowel sounds present EXT: warm and well perfused with no edema NEURO: awake, alert, oriented, no focal deficits Objective Labs 08/28/22 06:52 08/28/22 06:52 Labs: Laboratory Results - last 24 hr 08/28/22 08/28/22 06:52 06:52 WBC 8.6 RBC 3.72 L Hgb 11.5 L Hct 34.2 L MCV 91.9 MCH 31.0 MCHC 33.7 RDW 13.8 Plt Count 368 Neut % (Auto) 74.9 Lymph % (Auto) 14.1 L Crook % (Auto) 7.1 Eos % (Auto) 3.5 Baso % (Auto) 0.4 Neut # (Auto) 6400 Lymph # (Auto) 1200 Crook # (Auto) 600 Eos # (Auto) 300 Baso # (Auto) 0 Sodium 137 Potassium 3.7 Chloride 104 Carbon Dioxide 30 BUN 6 L Creatinine 0.91 Estimated GFR > 60 BUN/Creatinine Ratio 6.6 Glucose 96 Calcium 8.4 [facility] Medical History Asthma Chronic low back pain Erectile dysfunction Family history of prostate cancer Hearing loss History of colonic polyps Hypercholesteremia Mixed hyperlipidemia Obstructive sleep apnea (~1999) Sciatic nerve pain Seborrheic dermatitis Tinnitus Surgical History Anesthesia History of cholecystectomy (~2019) Hx of tonsillectomy (~1954) Otosclerosis (~1977) Family History Father Congestive heart failure Mother Dementia Sister Joint replaced Sister Joint replaced Social History details: (Marianela), 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 Hall, then Dr. Rodriguez, with general surgery consulted. Appreciate their time and assistance, possible CT drainage pending discussion with radiology? Possible followup CT but if labs and clinical picture consistently improved and so will not do a CT.? At this time patient mentions that surgery would like a ultrasound.? We will let them order. -continue Zosyn for now -pain medications as needed -advanced diet as tolerated -C. diff negative 08/24. -repeat CT today shows multiple loculated abscesses. Surgeon Dr. Hall will determine the course of treatment for these. # urinary retention s/p Vo -admitted less than 1 week ago for urinary retention and Vo placed, plan was for outpatient urology follow-up which has not occurred yet -maintain Vo -f/u with outpatient urology -consider mary jo-max, started yesterday -Ov has been removed and patient is tolerating well. # hyperlipidemia, chronic -continue home statin #hypokalemia ?- repleted # pellet-like formed stools. Need to better bowel routine. We will add sennosides at night. Follow labs and clinically. Today labs are stable. Follow tomorrow. Include CBC, BMP and CRP. Code status is full code. COVID negative. DVT prophylaxis with Lovenox. Proxy is spouse Marianela. Time Spent With Patient Critical Care time: I spent a total of [] minutes of critical care time on this patient's care today; this time is exclusive of procedural time. Quality VTE Deep Vein Thrombosis/Pulmonary Embolism Present on Admission: No
[2022-08-28 17:30] LABS: INR 1.3 (0.9-1.3); Prothrombin Time 15.1 SECONDS (10.1-12.7)
[2022-08-28] MEDS: SODIUM CHLORIDE 0.9% 250 ML 21 ML IV (17:33)
[2022-08-28 17:56] VITALS: BP 142/70; PULSE 50; RESP 18; TEMP 36.1; O2SAT 98
[2022-08-28 20:00] VITALS: BP 145/71; PULSE 51; RESP 19; TEMP 37.1; O2SAT 98
[2022-08-28] MEDS: SENNOSIDES 8.6 MG TABLET 17.2 MG PO (21:31)
[2022-08-28] MEDS: ATORVASTATIN 20 MG TABLET PO (21:31)
[2022-08-29] MEDS: PIPERACILLIN/TAZO 3.375 GM in SODIUM CHLORIDE 0.9% 100 ML IV ×2 (00:56→08:58)
[2022-08-29 05:25] LABS: Add Manual Diff / Slide Review NO; Basophils Absolute Auto 0 /uL (0-100); Basophils Percent Auto 0.5 % (0-2); Eosinophils Absolute Auto 300 /uL (0-450); Eosinophils Percent Auto 3.8 % (2-4); Hematocrit 36.9 % (41-53); Hemoglobin 12.3 g/dL (13.5-17.5); Lymphocytes Absolute Auto 1500 /uL (1100-4500); Lymphocytes Percent Auto 18.5 % (25-40); Mean Corpuscular HGB Conc 33.4 % (30-36); Mean Corpuscular Hemoglobin 30.8 PG (26-34); Mean Corpuscular Volume 92.3 fL (80-100); Monocytes Absolute Auto 700 /uL (0-900); Monocytes Percent Auto 8.6 % (3-14); Neutrophils Absolute Auto 5700 /uL (1500-7000); Neutrophils Percent Auto 68.6 % (50-75); Platelet Count 409 X10^3/uL (150-400); Red Cell Distribution Width 13.7 % (11.6-14.8); White Blood Cell Count 8.3 X10^3/uL (4.5-11.0)
[2022-08-29 05:37] LABS: BUN Creatinine Ratio 9.9 (6-22); Blood Urea Nitrogen 8 mg/dL (9-20); C-Reactive Protein Quant 1.4 mg/dL (<1.0); Calcium 8.6 mg/dL (8.4-10.2); Carbon Dioxide 28 mmol/L (22-32); Chloride 104 mmol/L (98-107); Estimated Glomerular Filt Rate > 60 mL/min (>60); Glucose 97 mg/dL (80-110); HEMOLYSIS 21 (0-50); Sodium 138 mmol/L (137-145)
[2022-08-29 06:00] VITALS: BP 139/72; PULSE 84; RESP 19; TEMP 37; O2SAT 95
[2022-08-29 08:54] VITALS: BP 147/73; PULSE 53; RESP 18; TEMP 36.8; O2SAT 98
[2022-08-29] MEDS: PSYLLIUM HUSK 1 PACKET PO (09:00)
[2022-08-29] MEDS: TAMSULOSIN 0.4 MG CAPSULE PO (09:00)
[2022-08-29] MEDS: SODIUM CHLORIDE 0.9% FLUSH 10 ML IV (09:01)
--- NOTE | 2022-08-29 11:19 | PM.DS.1 ---
History of Present Illness History of Present Illness Date Patient Seen: 08/29/22 Chief complaint: intense pain Lower ABD Narrative: Per admitting provider, Yoav is a 72-year-old male with past medical history of diverticulitis, urinary retention, prostate cancer, asthma, MESHA, and hyperlipidemia who presents with acute onset abdominal pain and found to have perforated diverticulitis. Patient states he developed worsening lower quadrant abd pain since first coming to the ED on 08/16 where he was given abx for diverticulitis and admitted for acute urinary retention. He was on day 5 of cipro and flagyl but it was not helping. Pain is mostly below his umbilicus. He still has a watt cath present from his last admission and has to see urology. Denies NV, diarrhea, fevers, CP, SOB or flank pain. Discharge Providers Provider Date of admission: 08/21/22 11:28 Discharge Date: 08/29/22 Primary care physician: Gabriel Nguyen MD Consults: 08/21/22 11:32 Consult to General Surgery Stat Comment: Consulting Provider: Ronald Hall Reason for consultation: diverticular perf Has provider been notified: Yes Discharge provider: Maykel Pérez DO Summary Hospital Course Discharge Diagnosis: # acute abdominal pain secondary to perforated diverticulitis with multiple abscesses # urinary retention s/p Watt # hyperlipidemia, chronic #hypokalemia Hospital Course: Alfonso Montejo is a 72-year-old male whom was admitted to the hospital with diverticulitis with perforation. He had a prolonged admission with continued abdominal pain and discomfort despite continued IV antibiotics, normalization of leukocytosis. Repeat CT was perfored which ultimately showed small abscesses. Surgery had been consulted. They recommended continued antibiotics and given that his leukocytosis had improved, and he had stable pain and symptoms and was able to tolerated adequate oral intake. He will follow up with general surgery next week, with repeat CT to be performed as an outpatient. He was discharged with continued pain medications, oral antibiotics and flomax. Flomax was continued given prior acute urinary retention (presumed due to diverticulitis) for possible BPH. He was able to void without retention after watt removed this hospitalization. Time Spent with Patient Time spent: Greater than 30 minutes Exam Vital Signs (past 8 hours): - 08/29/22 06:00 08/29/22 08:54 Temperature 98.6 F 98.3 F Pulse Rate 84 53 L Respiratory Rate 19 18 Blood Pressure 139/72 147/73 H Pulse Oximetry 95 98 Oxygen Flow Rate 0 0 Oxygen Delivery Method Room Air Oxygen Flow Rate 0 Narrative Exam Narrative: GEN: no distress HEENT: moist mucous membranes, PERRL NECK: trachea midline, no JVD CV: regular rate and rhythm, no murmurs PULM: clear bilaterally ABD: soft, minimal tenderness to palpation in lower left/middle quandrant, nondistended, no organomegaly, bowel sounds present EXT: warm and well perfused with no edema NEURO: awake, alert, oriented, no focal deficits Objective Labs 08/29/22 05:05 08/29/22 05:05 Labs: Laboratory Results - last 24 hr 08/28/22 08/29/22 08/29/22 17:10 05:05 05:05 WBC 8.3 RBC 4.00 L Hgb 12.3 L Hct 36.9 L MCV 92.3 MCH 30.8 MCHC 33.4 RDW 13.7 Plt Count 409 H Neut % (Auto) 68.6 Lymph % (Auto) 18.5 L Williamson % (Auto) 8.6 Eos % (Auto) 3.8 Baso % (Auto) 0.5 Neut # (Auto) 5700 Lymph # (Auto) 1500 Williamson # (Auto) 700 Eos # (Auto) 300 Baso # (Auto) 0 PT 15.1 H INR 1.3 Sodium 138 Potassium 4.0 Chloride 104 Carbon Dioxide 28 BUN 8 L Creatinine 0.81 Estimated GFR > 60 BUN/Creatinine Ratio 9.9 Glucose 97 Calcium 8.6 C-Reactive Protein 1.4 H PFSH Medical History Asthma Chronic low back pain Erectile dysfunction Family history of prostate cancer Hearing loss History of colonic polyps Hypercholesteremia Mixed hyperlipidemia Obstructive sleep apnea (~1999) Sciatic nerve pain Seborrheic dermatitis Tinnitus Surgical History Anesthesia History of cholecystectomy (~2019) Hx of tonsillectomy (~1954) Otosclerosis (~1977) Family History Father Congestive heart failure Mother Dementia Sister Joint replaced Sister Joint replaced Social History details: (Marianela), 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 Watt catheter removed, continue flomax, follow up with PCP to decide if intermediate flomax is needed after diverticulitis is improved. Nursing Discharge Comment: return to ER/ call 911 if symptoms that brought you to the ER return or if pain is not resolved w/ medications. ice packs can help w/ pain, continue to walk frequently, call MD If any questions. follow up w/ surgery as instructed. see handout on cdiff/ antibiotic therapy. it was a pleasure to be your nurse today, please take good care of yourself and enjoy this sunshine! Discharge orders & Medications Prescriptions: New acetaminophen 325 mg Tablet 650 mg PO Q6H PRN (Reason: Fever/Mild Pain (1-3)) Qty: 30 0RF melatonin 3 mg Tablet 6 mg PO BEDTIME PRN (Reason: Insomnia) Qty: 20 0RF amoxicillin-pot clavulanate 875-125 mg Tablet 1 tab PO BID 10 Days Qty: 20 0RF oxycodone 5 mg Tablet 5 mg PO Q6H PRN (Reason: Pain, Moderate (4-6)) Qty: 20 0RF Rx Instructions: May take 1 or 2 tabs as needed every 6 hours for pain Metamucil Fiber Singles 3.4 gram Powder In Packet 1 packet PO BID Qty: 44 10RF tamsulosin [Flomax] 0.4 mg Capsule 0.4 mg PO DAILY 30 Days Qty: 30 0RF Continued simvastatin 40 mg tablet 40 mg PO BEDTIME Qty: 90 3RF cholecalciferol (vitamin D3) [Vitamin D3] 25 mcg (1,000 unit) Tablet 1,000 unit PO DAILY ketoconazole 2 % cream 1 applic TOPICAL DAILY Rx Instructions: on face around nose Discontinued metronidazole 500 mg tablet 500 mg PO Q8H 14 Days Qty: 42 0RF ciprofloxacin HCl 500 mg tablet 500 mg PO Q12H 14 Days Qty: 28 0RF Follow up/Referrals: Savita Rodriguez MD [Physician] - (Plan for Ct scan Sunday next week and f/u appointment Sunday. Office should contact you but please call this number 15/01 with any questions or concerns. ) Gabriel Nguyen MD [Primary Care Provider] - Diet/Activity/Treatments Diet: Diet as Tolerated Activity: As tolerated Skin/Wound/Dressing Care Report to your healthcare provider any signs of infection, such as:: chills, fever and increased pain Visit Report/Discharge Packet Instructions: DI for Diverticulitis, Oxycodone, Amoxicillin and Clavulanic Acid, DI for Intra-Abdominal Abscess Stand Alone Forms: Patient Portal/API, Stroke Signs & Symptoms Discharge Data Primary Care Provider: Gabriel Nguyen V Quality VTE Deep Vein Thrombosis/Pulmonary Embolism Present on Admission: No
--- NOTE | 2022-08-29 11:33 | P.PN_ITS ---
Subjective Subjective Interval history: Feeling really well today like I could run down to [facility]. Pain controlled with tylenol alone and tolerating food. Discussed CT with Our radiologist who also talked with [facility]. Consensus is that trial of abtx without drainage is indicated. Pt and at bedside in agreement. Urinating normally since watt removal. Never had retention in the past. Exam Vital Signs (past 8 hours): - 08/29/22 06:00 08/29/22 08:54 Temperature 98.6 F 98.3 F Pulse Rate 84 53 L Respiratory Rate 19 18 Blood Pressure 139/72 147/73 H Pulse Oximetry 95 98 Oxygen Flow Rate 0 0 Oxygen Delivery Method Room Air Oxygen Flow Rate 0 Const General: cooperative, healthy appearing and comfortable HENMT Head: normal to inspection Mouth: moist mucous membranes GI Other: Mild subrapubic tenderness to deep palpation. soft, not distended. Much improved. Objective Labs 08/29/22 05:05 08/29/22 05:05 Labs: Laboratory Results - last 24 hr 08/28/22 08/29/22 08/29/22 17:10 05:05 05:05 WBC 8.3 RBC 4.00 L Hgb 12.3 L Hct 36.9 L MCV 92.3 MCH 30.8 MCHC 33.4 RDW 13.7 Plt Count 409 H Neut % (Auto) 68.6 Lymph % (Auto) 18.5 L Pope % (Auto) 8.6 Eos % (Auto) 3.8 Baso % (Auto) 0.5 Neut # (Auto) 5700 Lymph # (Auto) 1500 Pope # (Auto) 700 Eos # (Auto) 300 Baso # (Auto) 0 PT 15.1 H INR 1.3 Sodium 138 Potassium 4.0 Chloride 104 Carbon Dioxide 28 BUN 8 L Creatinine 0.81 Estimated GFR > 60 BUN/Creatinine Ratio 9.9 Glucose 97 Calcium 8.6 C-Reactive Protein 1.4 H [facility] Medical History Asthma Chronic low back pain Erectile dysfunction Family history of prostate cancer Hearing loss History of colonic polyps Hypercholesteremia Mixed hyperlipidemia Obstructive sleep apnea (~1999) Sciatic nerve pain Seborrheic dermatitis Tinnitus Surgical History Anesthesia History of cholecystectomy (~2019) Hx of tonsillectomy (~1955) Otosclerosis (~1977) Family History Father Congestive heart failure Mother Dementia Sister Joint replaced Sister Joint replaced Social History details: (Marianela), 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, 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 members: spouse Smoking Status: Never smoker alcohol intake: current Assessment & Plan Assessment and plan (1) Diverticulitis: Status: Acute (2) Diverticulitis of intestine with perforation: Qualifiers: Diverticulitis site: large intestine Diverticulitis bleeding: without bleeding Qualified Code(s): K57.20 - Diverticulitis of large intestine with perforation and abscess without bleeding Status: Acute (3) Colonic diverticular abscess: Problem details: intra peritoneal abscess Status: Acute Assessment & Plan narrative: After taking multiple opinions consensus is for abtx tx for at least one more week outpatient and CT scan repeat next week. If continued improvement, may avoid drainage. If not, can arrange drainage outpatient. Labs will re check on day of CT. Discharge today. Rx for oxycodone and augmentin got 10 more days written and sent to [facility]. F/u instructions discussed and will see in my clinic next week. Discussed w Dr. Pérez; he does rec continuation of flomax for now. Time Spent With Patient Critical Care time: I spent a total of [] minutes of critical care time on this patient's care today; this time is exclusive of procedural time. Quality VTE Deep Vein Thrombosis/Pulmonary Embolism Present on Admission: No
[2022-08-29] MEDS: AMOXICILLIN/CLAV 875/125 MG 1 TAB PO (11:43)
--- NOTE | 2022-08-29 12:06 | PC.NURSE ---
ambulating around hallways, continues to be NPO. surgeon in to see patient, anticipate no d/c to [facility] for procedure. will d/c today. iv abx d/c'd and PO augmentin given. see d/c summary.
--- NOTE | 2022-08-29 14:39 | CM.DPNOTE ---
DC Note Discharge home today w/spouse. Patient ambulating the halls. Close outpatient follow up recommended. No needs from this CM team JW
== END 2022-08-29 13:45 | disposition home or self-care (01) | DRG 391 ==
LOC: ED 11:28 → AC 11:29
PROVIDERS: Internal Medicine; Neuromusculoskeletal Medicine, Sports Medicine; Surgery; Admitting Provider Student in an Organized Health Care Education/Training Program; Emergency Provider Emergency Medicine; PCP Internal Medicine; Referring Provider Emergency Medicine; Visit Provider Student in an Organized Health Care Education/Training Program
DX: K57.20 Diverticulitis of large intestine with perforation and abscess without bleeding (principal); K65.1 Peritoneal abscess; E78.5 Hyperlipidemia, unspecified; E87.6 Hypokalemia; N40.1 Benign prostatic hyperplasia with lower urinary tract symptoms; R33.8 Other retention of urine; Z20.822 Contact with and (suspected) exposure to COVID-19
CPT/HCPCS: 36415; 74177; 80048; 80053; 81001; 83690; 85007; 85025; 85610; 86140; 87040; 87493; 87635; 96365; 96375; 99231; 99284; C9803; J1170; J1650; J2405; J2543; Q9967

== ENCOUNTER → 2022-09-06 10:44 | Outpatient (CLI) | payer MEDICARE, SELFPAY ==
[2022-08-21 12:07] VITALS: BMI 23.7
--- NOTE | 2022-09-06 10:45 | DI.CT.S_ITS ---
PROCEDURE: CT PELVIS W CON INDICATIONS: diverticulitis abscess follow up TECHNIQUE: After the administration of intravenous contrast, 5 mm thick sections acquired from the iliac crests to the symphysis. 5 mm coronal and sagittal reformats were acquired. For radiation dose reduction, the following was used: automated exposure control, adjustment of mA and/or kV according to patient size. COMPARISON: [facility], CT, CT ABDOMEN PELVIS W CON, 08/21/2022, 10:04. [facility], CT, CT ABDOMEN PELVIS W CON, 08/28/2022, 9:04. FINDINGS: Image quality: Excellent. Peritoneum and bowel: Small collection anterior to the right paramedian rectum measuring at 2.6 x 2.1 x 2 cm, estimated volume of 6 cc, ( and ), previously 4.8 x 4.1 cm on 08/28/2022. The component on the left is resolved. Trace free fluid. Overall inflammatory change is felt to be decreased. Diverticulosis. Prominent stool in the rectum. The appendix is within normal limits. No dilated loops of small bowel. Genitourinary: Bladder is partially distended. Bladder wall may be thickened. No stone. Nodes and vessels: No iliac, pelvic, or inguinal adenopathy by size criteria. Iliac vessels demonstrate normal size and enhancement. Bones: No suspicious bony lesions. DDD. Miscellaneous: No inguinal hernias. IMPRESSION: Small diverticular abscess in the right pelvis measuring at 2.6 cm and approximately 6 cc is decreased in size. Consider follow-up colonoscopy if not recently performed. Dictated by: John Pabon M.D. on 09/06/2022 at 11:43 Approved by: John Pabon M.D. on 09/06/2022 at 11:49
--- NOTE | 2022-09-07 10:56 | PM.CALLCOV.1 ---
Call Coverage Note Note Date of Patient Contact: 09/07/22 Time of Patient Contact: 10:56 Narrative of Care Provided: Called and discussed CT scan results. Patient has follow-up scheduled tomorrow with me in the office. But he is doing very well. Has no complaints or questions. He is continuing to take the fiber twice a day and moving his bowels. Pain is markedly improved and almost gone. He is almost back to his exercise regimen from before his illness. He is pleased to hear that the abscess cavities are all but resolved and the 1 remaining is decreased in size to 2 cm in diameter. He is willing to continue his current treatment and will follow-up or call if anything does not seem right or if he is getting worse in any way. Given he is doing so well and the CT scan is improved he is comfortable cancelling his appointment tomorrow. I do need to schedule a follow-up colonoscopy for him once he is healed from this diverticulitis. I think 8 weeks should be sufficient time. I would like to check another CT scan a week or 2 before his scheduled colonoscopy just to be sure that everything looks normal and has healed completely. Mr. Montejo is amenable to this plan. I have sent a workload to my office staff to arrange it.
== END ==
PROVIDERS: PCP Internal Medicine; Referring Provider Surgery; Visit Provider Surgery
DX: K57.20 Diverticulitis of large intestine with perforation and abscess without bleeding (principal)
CPT/HCPCS: 72193; Q9967

== ENCOUNTER → 2022-10-30 13:07 | Outpatient (CLI) | payer MEDICARE, SELFPAY ==
[2022-08-21 12:07] VITALS: BMI 23.7
[2022-10-30 14:08] LABS: Add Manual Diff / Slide Review NO; Basophils Absolute Auto 100 /uL (0-100); Basophils Percent Auto 0.8 % (0-2); Eosinophils Absolute Auto 300 /uL (0-450); Eosinophils Percent Auto 3.9 % (2-4); Hematocrit 38.4 % (41-53); Hemoglobin 13.1 g/dL (13.5-17.5); Lymphocytes Absolute Auto 2000 /uL (1100-4500); Lymphocytes Percent Auto 30.5 % (25-40); Mean Corpuscular HGB Conc 34.2 % (30-36); Mean Corpuscular Hemoglobin 31.1 PG (26-34); Monocytes Absolute Auto 500 /uL (0-900); Monocytes Percent Auto 7.5 % (3-14); Neutrophils Absolute Auto 3800 /uL (1500-7000); Neutrophils Percent Auto 57.3 % (50-75); Platelet Count 200 X10^3/uL (150-400); Red Blood Cell Count 4.22 X10^6/uL (4.5-5.9); Red Cell Distribution Width 14.2 % (11.6-14.8); White Blood Cell Count 6.6 X10^3/uL (4.5-11.0)
[2022-10-30 14:29] LABS: BUN Creatinine Ratio 21.1 (6-22); Blood Urea Nitrogen 19 mg/dL (9-20); Carbon Dioxide 26 mmol/L (22-32); Chloride 102 mmol/L (98-107); Estimated Glomerular Filt Rate > 60 mL/min (>60); Glucose 83 mg/dL (80-110); HEMOLYSIS < 15 (0-50); Potassium 4.5 mmol/L (3.4-5.1); Sodium 136 mmol/L (137-145)
== END ==
PROVIDERS: PCP Internal Medicine; Referring Provider Surgery; Visit Provider Surgery
DX: K57.20 Diverticulitis of large intestine with perforation and abscess without bleeding (principal)
CPT/HCPCS: 36415; 80048; 85025

== ENCOUNTER → 2022-11-01 13:47 | Outpatient (CLI) | payer MEDICARE, SELFPAY ==
[2022-08-21 12:07] VITALS: BMI 23.7
--- NOTE | 2022-11-01 13:47 | DI.CT.S_ITS ---
PROCEDURE: CT PELVIS W CON INDICATIONS: follow up diverticulitis TECHNIQUE: After the administration of intravenous contrast, 5 mm thick sections acquired from the iliac crests to the symphysis. 5 mm coronal and sagittal reformats were acquired. For radiation dose reduction, the following was used: automated exposure control, adjustment of mA and/or kV according to patient size. COMPARISON: [facility], CT, CT PELVIS W CON, 09/06/2022, 10:46. FINDINGS: Small previously demonstrated diverticular abscess in the right pelvis is no longer visualized. Colonic diverticulosis redemonstrated without definite evidence of new or worsening diverticulitis, chronic diverticulitis not excludable. Pelvic fat stranding appears decreased. No free air or substantial free fluid within the imaged peritoneal cavity. Visualized large and small bowel is non-dilated. IMPRESSION: Small previously demonstrated diverticular abscess in the right pelvis is no longer visualized. Colonic diverticulosis redemonstrated without definite evidence of new or worsening diverticulitis, chronic diverticulitis not excludable. As there can be overlap in the imaging appearance of diverticulitis and colonic carcinoma, correlation with recent colonoscopy or consideration of colonoscopy after completion of therapy may be helpful. Dictated by: Yury Mccauley M.D. on 11/01/2022 at 18:13 Approved by: Yury Mccauley M.D. on 11/01/2022 at 18:18
== END ==
PROVIDERS: PCP Internal Medicine; Referring Provider Surgery; Visit Provider Surgery
DX: K57.20 Diverticulitis of large intestine with perforation and abscess without bleeding (principal)
CPT/HCPCS: 72193; Q9967

== ENCOUNTER 2022-11-10 09:03 | Day surgery (SDC) | payer MEDICARE, SELFPAY ==
[2022-08-21 12:07] VITALS: BMI 23.7
[2022-11-10 09:19] VITALS: BP 122/60; PULSE 45; RESP 18; TEMP 36.2; O2SAT 100; BMI 23.1
[2022-11-10] MEDS: LACTATED RINGERS 1,000 ML 42 ML IV (09:27)
--- NOTE | 2022-11-10 09:43 | PM.HP.1 ---
History of Present Illness History of Present Illness Date Patient Seen: 11/10/22 Time Patient Seen: 09:43 Chief complaint: [facility] Narrative: Mr. Montejo is a relatively healthy 72-year-old male who is known to me because I help take care of him when he was hospitalized with diverticular perforation. He is doing much better he had a CT scan last week that showed everything had cleared up and he is not having any further symptoms. He has had a colonoscopy in the past about 5 years ago and there were some polyps taken he has no family history of colon cancer but he said he was on a 5 year cycle because of the polyps. Otherwise he has no questions or concerns and is ready to proceed [facility] Medical History Asthma Chronic low back pain Erectile dysfunction Family history of prostate cancer Hearing loss History of colonic polyps Hypercholesteremia Mixed hyperlipidemia Obstructive sleep apnea (~1999) Sciatic nerve pain Seborrheic dermatitis Tinnitus Surgical History Anesthesia History of cholecystectomy (~2019) Hx of tonsillectomy (~1954) Otosclerosis (~1977) Family History Father Congestive heart failure Mother Dementia Sister Joint replaced Sister Joint replaced Social History details: (Marianela), 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, 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 members: spouse Smoking Status: Never smoker alcohol intake: current Meds Home Medications and Allergies Home Medications Medication Instructions Recorded Confirmed Type ketoconazole 2 % topical cream 1 applic topical DAILY 08/21/22 11/10/22 History psyllium husk (aspartame) 3.4 gram 1 packet PO BID #44 ea 08/29/22 11/10/22 Rx oral powder packet (Metamucil Fiber Singles) simvastatin 40 mg tablet 40 mg PO BEDTIME #90 tabs 10/26/22 11/10/22 Rx Allergies Allergy/AdvReac Type Severity Reaction Status Date / Time pollen, fur Allergy Mild itchy eyes Uncoded 11/10/22 09:18 and sniffles Exam Vital Signs (past 8 hours): - 11/10/22 09:19 Temperature 97.2 F L Pulse Rate 45 L Respiratory Rate 18 Blood Pressure 122/60 Pulse Oximetry 100 Oxygen Delivery Method Room Air Oxygen Delivery Method Room Air Const General: cooperative, healthy appearing and comfortable Nutritional Appearance: average body habitus Orientation: oriented x3 HENMT Head: normal to inspection Eyes General: appearance normal, both eyes and all related structures Resp Effort & Inspection: normal respiratory effort and able to speak in complete sentences GI Palpation: soft and No tender Assessment & Plan Assessment and plan (1) Colonic diverticular abscess: Problem details: intra peritoneal abscess Status: Acute (2) History of colonic polyps: Status: Acute (3) Diverticulitis of intestine with perforation: Qualifiers: Diverticulitis bleeding: without bleeding Diverticulitis site: large intestine Qualified Code(s): K57.20 - Diverticulitis of large intestine with perforation and abscess without bleeding Status: Acute Assessment & Plan narrative: Presents today for screening colonoscopy I discussed the risks benefits and alternatives including but not limited to perforation of the colon and an incomplete exam he fully understands these risks and would like to proceed.
[2022-11-10 10:44] VITALS: BP 130/62; PULSE 47; RESP 18; TEMP 36.3; O2SAT 98
[2022-11-10 10:49] VITALS: BP 126/70; PULSE 46; RESP 18; O2SAT 97
--- NOTE | 2022-11-10 10:51 | P.OP.COLON_ITS ---
Operative Date/Time/Diagnoses Date of procedure: 11/10/22 Time of procedure: 10:51 Pre-op diagnosis: Diverticular abscess Procedure & Clinicians Study performed: Colonoscopy Same procedure as scheduled: Yes Indications: Diverticular perforation and abscess Surgeon: Savita Rodriguez Procedure Notes Procedure in detail: Patient was taken to the endoscopy suite placed in left lateral decubitus position. A time-out was performed. Conscious sedation with the help of a nesthesiologist was induced, and maintained and monitored throughout the case. Digital rectal exam was performed and there were no masses or strictures. The colonoscope was introduced into the anal canal and advanced through to the cecum. There were large numbers of diverticula throughout the sigmoid colon and in even some scattered throughout the remainder of the colon. Additionally the colon was somewhat difficult to traverse with many twists and sharp turns. Nonetheless the cecum was reached and a photograph was obtained. The bowel prep was good [place] bowel prep score of 2. The scope was then withdrawn for the duration of 18 minutes. At the end of the colon the scope was retroflexed and internal hemorrhoid piles looked normal, a photograph was obtained. Patient tolerated the procedure well and went in good condition to the postoperative care unit. He had no polyps and so with no family history of colon cancer, and no new concerning symptoms, he can follow up in 10 years.
[2022-11-10 10:54] VITALS: BP 130/73; PULSE 45; RESP 18; O2SAT 98
[2022-11-10 11:00] VITALS: BP 134/78; PULSE 44; RESP 18; TEMP 36.4; O2SAT 98
[2022-11-10 11:09] VITALS: BP 130/70; PULSE 46; RESP 18; TEMP 36.4; O2SAT 99
== END 2022-11-10 11:30 | disposition home or self-care (01) ==
PROVIDERS: PCP Internal Medicine; Referring Provider Surgery; Visit Provider Surgery
PROC: 0DJD8ZZ Inspection of Lower Intestinal Tract, Via Natural or Artificial Opening Endoscopic (ICD-10-PCS; CPT 45378; principal; 2022-11-10 09:45)
DX: Z12.11 Encounter for screening for malignant neoplasm of colon (principal); Z86.010 Personal history of colon polyps; K57.30 Diverticulosis of large intestine without perforation or abscess without bleeding
CPT/HCPCS: G0105; J2704

== ENCOUNTER → 2022-11-15 10:02 | Outpatient (CLI) | payer MEDICARE, SELFPAY ==
[2022-08-21 12:07] VITALS: BMI 23.7
== END ==
PROVIDERS: PCP Internal Medicine; Referring Provider Internal Medicine; Visit Provider Internal Medicine
DX: I48.91 Unspecified atrial fibrillation (principal); I48.92 Unspecified atrial flutter
CPT/HCPCS: 93246

== ENCOUNTER 2023-02-27 09:18 | Observation (INO) | payer MEDICARE, SELFPAY ==
[2022-08-21 12:07] VITALS: BMI 23.7
[2023-02-27] VITALS (12 sets, daily range): BP systolic 115–148; BP diastolic 54–68; PULSE 47–99; RESP 16–21; TEMP 36.9–37.2; O2SAT 95–99; BMI 22.6
--- NOTE | 2023-02-27 09:22 | DI.CT.S_ITS ---
PROCEDURE: CT ANGIO HEAD AND NECK INDICATIONS: facial droop, speech change TECHNIQUE: After the administration of intravenous contrast, 1 mm thick sections acquired from the aortic arch through the [place]. 3-dimensional lgmlfof-ogfkisngz-gqqaqrxknj (MIP) and/or volume rendering reformats were acquired of the central intracranial vasculature and neck separately. For radiation dose reduction, the following was used: automated exposure control, adjustment of mA and/or kV according to patient size. COMPARISON: [facility], CT, CT STROKE, 02/27/2023, 9:31. FINDINGS: Image quality: Suboptimal contrast opacification of are tear system. BRAIN: CSF spaces: Ventricles are normal in size and shape. Basal cisterns are patent. No extra-axial fluid collections. Brain: There is a small old right cerebellar infarct. No significant acute abnormality of the brain can be seen. Skull and face: Calvarium and facial bones appear intact, without suspicious lesions. Orbits appear normal. Sinuses: Sinuses and mastoids are clear. HEAD CT ANGIOGRAPHY: Anterior circulation: Intracranial internal carotid arteries are normal in size and flow. The flow within the paired anterior cerebral arteries is normal and symmetric. The flow within the middle cerebral arteries is normal and symmetric. The anterior communicating artery is seen. No aneurysms are seen. Posterior circulation: Visualized portions of the vertebral arteries demonstrate normal caliber, and join to form a normal appearing basilar artery. Flow within the posterior cerebral arteries is normal and symmetric. No aneurysms are seen. NECK CT ANGIOGRAPHY: Carotid system: The great vessels demonstrate a conventional anatomy as they arise from the aortic arch. The origins of the common carotid arteries appear patent. The common carotid arteries demonstrate normal caliber and courses. The bifurcation regions are both widely patent. The internal carotid arteries demonstrate normal calibers and courses. Posterior circulation: The origins of the vertebral arteries both appear widely patent. The more superior extracranial portions of both vertebral arteries also demonstrate normal courses and calibers. They join to form a normal appearing basilar artery. Soft tissues: Visualized neck soft tissues demonstrate no suspicious abnormalities. Bones: No suspicious bony lesions. There is moderate degenerative disc and facet disease in cervical spine. Visualized cervical spine appears normally aligned. IMPRESSION: 1. Suboptimal opacification of arterial structures. 2. No acute intracranial abnormalities. 3. No large vessel occlusion or hemodynamic significant stenosis in anterior or posterior circulations. 4. No occlusion or hemodynamic significant stenosis in cervical carotid arteries or vertebral arteries bilaterally. Any quantitative measurements of stenosis were performed using NASCET criteria. Dictated by: Cici Fulton M.D. on 02/27/2023 at 10:09 Approved by: Cici Fulton M.D. on 02/27/2023 at 10:14
--- NOTE | 2023-02-27 09:22 | DI.CT.S_ITS ---
PROCEDURE: CT STROKE INDICATIONS: facial droop, speech change TECHNIQUE: Noncontrast 4.5 mm thick angled axial sections acquired from the foramen magnum to the vertex, with coronal reformats. For radiation dose reduction, the following was used: automated exposure control, adjustment of mA and/or kV according to patient size. COMPARISON: None. FINDINGS: Image quality: Excellent. CSF spaces: Basal cisterns are patent. No extra-axial fluid collections. The ventricles are symmetric in size and shape. Brain: Suspect a small area of old infarct in the right cerebellum. No intracranial bleeds or masses. There is cerebral volume loss for age, with resultant ventricular and sulcal prominence. There are periventricular and deep white matter chronic small vessel ischemic changes. There is intracranial internal carotid artery atherosclerosis. Skull and face: Calvarium and visualized facial bones appear intact, without suspicious lesions. Sinuses: Visualized sinuses and mastoids are clear. IMPRESSION: 1. No acute intracranial abnormalities. 2. A small old right cerebellar infarct. 3. Cerebral volume loss and chronic microvascular ischemic changes. This study fulfills neurological imaging criteria for inclusion or exclusion of acute stroke therapies based on available published neurological guidelines. Dictated by: Cici Fulton M.D. on 02/27/2023 at 9:34 Approved by: Cici Fulton M.D. on 02/27/2023 at 9:38
--- NOTE | 2023-02-27 09:23 | ED_ITS ---
HPI - Neuro Symptoms/Deficit General Chief Complaint: Neuro Symptoms/Deficit Stated Complaint: poss stroke Time Seen by Provider: 02/27/23 09:21 Source: patient, RN notes reviewed and old records reviewed Mode of arrival: Family Vehicle Limitations: no limitations History of Present Illness HPI Narrative: 72-year-old male with history of paroxysmal atrial fibrillation, dyslipidemia no anticoagulation who states has speech and facial droop changes that started this morning at about 0 900. Family appreciates them as well. Patient states he had breakfast without any issue and then started to have some sensation changes on the right side of his face noticed his face was drooping went upstairs to talk to his had noticed speech changes. He states he was able to eat without any issue but was drooling after this started. States it was about 840am that he went upstairs. Denies any numbness tingling or weakness in his extremities, no difficulty with gait. No syncope, has some very mild vertigo symptoms going up the stairs but nothing persistent. No chest pain no shortness of breath, no vision changes. No nausea or vomiting no other GI or urinary symptoms. Patient states he had some atrial fibrillation when he was seen for diverticulitis. He had what sounds like a ZIO patch was found to have occasional intermittent atrial fibrillation less than 10% of the time and was recommended to take a spirin daily. He elected not to take aspirin. Patient states it is only medication is a statin daily. He is had diverticulitis and treated with antibiotics. States an appendectomy when he was much younger. No known drug allergies. No tobacco, occasional alcohol, no illicit. He is accompanied by his . Dr. Nguyen is his primary care physician. Related Data Home Medications Medication Instructions Recorded Confirmed ketoconazole 2 % topical cream 1 applic topical DAILY PRN Rash 08/21/22 02/27/23 Previous Rx's Medication Instructions Recorded psyllium husk (aspartame) 3.4 gram 1 packet PO BID #44 ea 08/29/22 oral powder packet (Metamucil Fiber Singles) simvastatin 40 mg tablet 40 mg PO BEDTIME #90 tabs 10/26/22 Allergies Allergy/AdvReac Type Severity Reaction Status Date / Time pollen, fur Allergy Mild itchy eyes Uncoded 02/27/23 09:33 and sniffles Review of Systems Review of Systems ROS Unobtainable: All systems reviewed & are unremarkable except as noted in HPI and below Patient History Medical History Asthma Chronic low back pain Erectile dysfunction Family history of prostate cancer Hearing loss History of colonic polyps Hypercholesteremia Mixed hyperlipidemia Obstructive sleep apnea (~1999) Sciatic nerve pain Seborrheic dermatitis Tinnitus Surgical History Anesthesia History of cholecystectomy (~2019) Hx of tonsillectomy (~1954) Otosclerosis (~1977) Family History Father Congestive heart failure Mother Dementia Sister Joint replaced Sister Joint replaced Social History details: (Marianela), 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, 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 HEENT: Atraumatic, pupils are equal round reactive to light, extraocular movements are intact, nares are clear, TMs are clear with no fluid, there is no conjunctival pallor. Throat is clear without any exudates, erythema, tonsillar enlargement or uvular deviation, patient had significant facial droop on initial eval with drooling and unable to move, on repeat eval he now has some movement some mild droop still but definitely improved. Has some decreased sensation on the right cheek. HEART: Regular rate and rhythm without murmur, clicks, rubs. LUNGS:Lungs clear to auscultation, no wheezes, rales, crackles, chest moves symmetrically ABD:bowel sounds normal, soft, non-tender, no guarding, rebound, rigidity, no masses noted, no hepatosplenomegaly MSCL: Non-tender, no muscle atrophy, muscles strength 5/5 upper and lower extremities, full range of motion. NEURO:CN 2-12 intact, sensation normal, finger nose finger test normal, heel rodriguez test normal, romberg normal SKIN: No rash, erythema or other skin changes Initial Vital Signs Initial Vital Signs: Vital Signs Pulse Rate 54 L 02/27/23 09:33 Scores NIH Stroke Scale Level of Conciousness: Alert, keenly responsive Ask month/age: Answers both questions correctly. Open/close eyes, close hand: Performs both tasks correctly Best gaze horizontal: Normal Visual hernandez: No visual loss Facial palsy: Minor paralysis, flattened nasolabial fold, asymmetry on smiling Left arm drift: No drift for full 10 sec Right arm drift: No drift for full 10 sec Left leg drift: No drift for full 5 sec Right leg drift: No drift for full 5 sec Limb ataxia: Absent Sensory on face/arms/legs: Normal, no sensory loss Best language: No aphasia, normal Dysarthria: Mild to mod,some slurring Extinction or inattention: No abnormality Total NIH Stroke scale score: 2 Course Orders Ordered: ED Orders 02/28/23 05:00 Basic Metabolic Panel DAILY Complete Blood Count AUTO DIFF DAILY Hemoglobin A1C% w Est Avg Glu Routine Magnesium DAILY TSH w/ Reflex to FT4 Routine 03/01/23 05:00 Basic Metabolic Panel DAILY Complete Blood Count AUTO DIFF DAILY Magnesium DAILY 03/02/23 05:00 Basic Metabolic Panel DAILY Complete Blood Count AUTO DIFF DAILY Magnesium DAILY Acetaminophen (Acetaminophen 325 Mg Tablet) 650 mg PO Q6H PRN PRN Reason: Fever/Mild Pain (1-3) Enoxaparin Sodium (Enoxaparin 40 Mg/0.4 Ml Syringe) 40 mg SUBCUT DAILY NARCISO Ondansetron HCl (Ondansetron 4 Mg/2 Ml Inj) 4 mg IV Q8HR PRN PRN Reason: Nausea And Vomiting Discontinued Medications Aspirin (Aspirin 81 Mg Chew Tab) 324 mg PO NOW ONE Stop: 02/27/23 09:47 Last Admin: 02/27/23 09:53 Dose: 324 mg Documented By: LAMAR Sodium Chloride (Normal Saline 0.9%) 1,000 mls @ 150 mls/hr IV CONT NARCISO Last Infusion: 02/27/23 11:05 Dose: 0 mls/hr Documented By: Admin: 02/27/23 09:53 Dose: 150 mls/hr Documented By: LAMAR Sodium Chloride (Normal Saline 0.9%) 1,000 mls @ 100 mls/hr IV CONT NARCISO MDM - Neuro Symptoms/Deficit Lab Data 02/27/23 09:35 02/27/23 09:35 Labs: Lab Results 02/27/23 02/27/23 02/27/23 Range/Units 09:35 09:35 09:35 WBC 6.1 (4.5-11.0) X10^3/uL RBC 4.14 L (4.5-5.9) X10^6/uL Hgb 13.3 L (13.5-17.5) g/dL Hct 38.6 L (41-53) % MCV 93.3 (80-100) fL MCH 32.0 (26-34) PG MCHC 34.4 (30-36) % RDW 14.1 (11.6-14.8) % Plt Count 187 (150-400) X10^3/uL Neut % (Auto) 52.5 (50-75) % Lymph % (Auto) 31.4 (25-40) % Sampson % (Auto) 9.3 (3-14) % Eos % (Auto) 6.1 H (2-4) % Baso % (Auto) 0.7 (0-2) % Neut # (Auto) 3200 (9940-5680) /uL Lymph # (Auto) 1900 (0990-4159) /uL Sampson # (Auto) 600 (0-900) /uL Eos # (Auto) 400 (0-450) /uL Baso # (Auto) 0 (0-100) /uL PT 12.3 (10.1-12.7) SECONDS INR 1.1 (0.9-1.3) APTT 29 (26-36) SECONDS Sodium 135 L (137-145) mmol/L Potassium 4.1 (3.4-5.1) mmol/L Chloride 101 (98-107) mmol/L Carbon Dioxide 27 (22-32) mmol/L BUN 18 (9-20) mg/dL Creatinine 0.91 (0.66-1.25) mg/dL Estimated GFR > 60 (>60) mL/min BUN/Creatinine Ratio 19.8 (6-22) Glucose 105 (80-110) mg/dL Calcium 8.7 (8.4-10.2) mg/dL Total Bilirubin 0.8 (0.2-1.3) mg/dL AST 30 (17-59) IU/L ALT 27 (<50) IU/L Alkaline Phosphatase 55 (38-126) U/L Total Creatine Kinase 148 (55-170) U/L Troponin I < 0.012 (0.01-0.034) ng/mL Total Protein 6.6 (6.3-8.2) g/dL Albumin 4.0 (3.5-5.0) g/dL Globulin 2.6 (1.7-4.1) g/dL Albumin/Globulin Ratio 1.5 (1.0-2.8) Ethyl Alcohol < 10 ( - 10) mg/dL Point of Care Testing Glucose POC [address] scan - head: Radiologist's Impression: Close Head/Neck CTA 02/27/[address] (Signed) KirstinJeromeramana - 02/27/[address] (Signed) Yury Mccauley - 11/01/[address] (Signed) John Pabon - 09/06/22 Abdomen/Pelvis CT (Signed) Lemuel Jurado - 08/28/22 Abdomen/Pelvis CT (Signed) Robert Lomas - 08/21/22 Renal Ultrasound (Signed) John Pabon - 08/16/22 Echocardiogram Ultrasound (Signed) Mikki Hernandez - 08/16/22 Abdomen/Pelvis CT (Signed) Yury Mccauley - 08/16/22 Telemetry Strips 07/23/19 Abdomen/Pelvis CT (Signed) Dany Ruiz - 07/23/19 Cholangiogram,Operative (Signed) Robert Lomas - 07/23/19 Abdomen X-Ray (Cancelled) 07/23/19 Launch?[place] [address] CT Scan Report Signed Patient: Alfonso Montejo MR#: [id number] : 1950 Acct:[id number] Age/Sex: 72 / M Date of Service: 02/27/23 Loc: ED Accession Number: [id number] ?? Procedure: CT Stroke Ordering Provider: Anna Cassidy D.O. PROCEDURE:? CT STROKE ? INDICATIONS:? facial droop, speech change ? TECHNIQUE:? Noncontrast 4.5 mm thick angled axial sections acquired from the foramen magnum to the vertex, with coronal reformats.? For radiation dose reduction, the following was used:? automated exposure control, adjustment of mA and/or kV according to patient size.? ? COMPARISON:? None. ? FINDINGS:? Image quality:? Excellent.? ? CSF spaces:? Basal cisterns are patent.? No extra-axial fluid collections.? The ventricles are symmetric in size and shape.? ? Brain:? Suspect a small area of old infarct in the right cerebellum.? No intracranial bleeds or masses.? There is cerebral volume loss for age, with resultant ventricular and sulcal prominence.? There are periventricular and deep white matter chronic small vessel ischemic changes.? There is intracranial internal carotid artery atherosclerosis.? ? Skull and face:? Calvarium and visualized facial bones appear intact, without suspicious lesions.? ? Sinuses:? Visualized sinuses and mastoids are clear.? ? IMPRESSION:? ? 1. No acute intracranial abnormalities. 2. A small old right cerebellar infarct. 3. Cerebral volume loss and chronic microvascular ischemic changes. ? ? This study fulfills neurological imaging criteria for inclusion or exclusion of acute stroke therapies based on available published neurological guidelines.? ? ? Dictated by: Cici Fulton M.D. on 02/27/2023 at 9:34 ? ? Approved by: Cici Fulton M.D. on 02/27/2023 at 9:38?? CTA - brain/neck: Radiologist's Impression: Close Head/Neck CTA (Signed) Cici Fulton - 02/27/[address] (Addendum) Cici Fulton - 02/27/[address] (Signed) Yury Mccauley - 11/01/[address] (Signed) Call,John - 09/06/22 Abdomen/Pelvis CT (Signed) Lemuel Jurado - 08/28/22 Abdomen/Pelvis CT (Signed) Robert Lomas - 08/21/22 Renal Ultrasound (Signed) Call,John - 08/16/22 Echocardiogram Ultrasound (Signed) Mikki Hernandez - 08/16/22 Abdomen/Pelvis CT (Signed) Yury Mccauley - 08/16/22 Telemetry Strips 07/23/19 Abdomen/Pelvis CT (Signed) Dany Ruiz - 07/23/19 Cholangiogram,Operative (Signed) Robert Lomas - 07/23/19 Abdomen X-Ray (Cancelled) 07/23/19 Launch?[facility] [address] [address] [address] Scan Report Signed Patient: Alfonso Montejo MR#: [id number] : 1950 Acct:[id number] Age/Sex: 72 / M Date of Service: 02/27/23 Loc: ED Accession Number: [id number] ?? Procedure: CT angio head and neck Ordering Provider: Anna Cassidy D.O. PROCEDURE:? CT ANGIO HEAD AND NECK ? INDICATIONS:? facial droop, speech change ? TECHNIQUE:? After the administration of intravenous contrast, 1 mm thick sections acquired from the aortic arch through the [place].? 3-dimensional maximum-intensity- projection (MIP) and/or volume rendering reformats were acquired of the central intracranial vasculature and neck separately. For radiation dose reduction, the following was used:? automated exposure control, adjustment of mA and/or kV according to patient size.? ? COMPARISON:? [facility], CT, CT STROKE, 02/27/2023, 9:31. ? FINDINGS:? Image quality:? Suboptimal contrast opacification of are tear system.? ? BRAIN:? CSF spaces:? Ventricles are normal in size and shape.? Basal cisterns are patent.? No extra-axial fluid collections.? ? Brain:? There is a small old right cerebellar infarct.? No significant acute abnormality of the brain can be seen. ? ? ? Skull and face:? Calvarium and facial bones appear intact, without suspicious lesions.? Orbits appear normal.? ? Sinuses:? Sinuses and mastoids are clear.? ? HEAD CT ANGIOGRAPHY:? Anterior circulation:? Intracranial internal carotid arteries are normal in size and flow.? The flow within the paired anterior cerebral arteries is normal and symmetric.? The flow within the middle cerebral arteries is normal and symmetric.? The ante rior communicating artery is seen.? No aneurysms are seen.? ? Posterior circulation:? Visualized portions of the vertebral arteries demonstrate normal caliber, and join to form a normal appearing basilar artery.? Flow within the posterior cerebral arteries is normal and symmetric.? No aneurysms are seen.? ? NECK CT ANGIOGRAPHY:? Carotid system:? The great vessels demonstrate a conventional anatomy as they arise from the aortic arch.? The origins of the common carotid arteries appear patent.? The common carotid arteries demonstrate normal caliber and courses.? The bifurcation regions are both widely patent.? The internal carotid arteries demonstrate normal calibers and courses.? ? Posterior circulation:? The origins of the vertebral arteries both appear widely patent.? The more superior extracranial portions of both vertebral arteries also demonstrate normal courses and calibers.? They join to form a normal appearing basilar artery.? ? Soft tissues:? Visualized neck soft tissues demonstrate no suspicious abnormalities.? ? Bones:? No suspicious bony lesions.? There is moderate degenerative disc and facet disease in cervical spine.? Visualized cervical spine appears normally aligned.? ? ? IMPRESSION:? ? 1. Suboptimal opacification of arterial structures. 2. No acute intracranial abnormalities. 3. No large vessel occlusion or hemodynamic significant stenosis in anterior or posterior circulations. 4. No occlusion or hemodynamic significant stenosis in cervical carotid arteries or vertebral arteries bilaterally. ? ? Any quantitative measurements of stenosis were performed using NASCET criteria.? ? ? Dictated by: Cici Fulton M.D. on 02/27/2023 at 10:09 ? ? Approved by: Cici Fulton M.D. on 02/27/2023 at 10:14? ECG Data Attestation: I personally reviewed and interpreted this ECG as follows: Interpretation: Sinus bradycardia rate of 54 MT 182 QRS of 92 and QTC of 409. No acute ST el evation or depression noted. MDM Narrative Medical decision making narrative: 72-year-old male history intermittent atrial fibrillation who is not anticoagulated who presents with right facial droop, drooling and speech changes with sudden this morning. Patient was able to eat breakfast in the noticed a change afterwards and was drooling. Patient had white significant droop initially and is improving here in the department his family appreciates his dysarthria significantly improving as well. NIH of 2 would likely have been 3 although had not had full NIH scale when he 1st arrived. Initial non-con head CT is negative for acute change does show small old stroke results called to myself by Dr. Fulton, CT angio shows no acute change. Patient's point of care glucose was 105 labs show hemoglobin of 13 appears stable to priors no leukocytosis,. Coags are negative sodium is 135 troponin, CMP and LFTs are all negative. Patient was in thin window for tPA but with mild symptoms that are improving significantly was felt not to be an appropriate candidate did discuss with the patient he is comfortable with this. Was given aspirin [address] non-con is negative. Spoke with Dr. Pérez, hospitalist; accepts for observation. Reviewed findings from today, prior hx of atrial fibrillation. Discharge Plan Departure Patient Disposition: Admitted as Observation Clinical Impression: Acute CVA (cerebrovascular accident) Admit Date/Time: 02/27/23 10:55 Admit Provider: Maykel Pérez
[2023-02-27 09:46] LABS: Add Manual Diff / Slide Review NO; Basophils Absolute Auto 0 /uL (0-100); Basophils Percent Auto 0.7 % (0-2); Eosinophils Absolute Auto 400 /uL (0-450); Eosinophils Percent Auto 6.1 % (2-4); Hematocrit 38.6 % (41-53); Hemoglobin 13.3 g/dL (13.5-17.5); Lymphocytes Absolute Auto 1900 /uL (1100-4500); Lymphocytes Percent Auto 31.4 % (25-40); Mean Corpuscular HGB Conc 34.4 % (30-36); Mean Corpuscular Volume 93.3 fL (80-100); Monocytes Absolute Auto 600 /uL (0-900); Monocytes Percent Auto 9.3 % (3-14); Neutrophils Absolute Auto 3200 /uL (1500-7000); Neutrophils Percent Auto 52.5 % (50-75); Platelet Count 187 X10^3/uL (150-400); Red Blood Cell Count 4.14 X10^6/uL (4.5-5.9); Red Cell Distribution Width 14.1 % (11.6-14.8); White Blood Cell Count 6.1 X10^3/uL (4.5-11.0)
[2023-02-27] MEDS: ASPIRIN 81 MG CHEW TAB 324 MG PO (09:53)
[2023-02-27] MEDS: SODIUM CHLORIDE 0.9% 1,000 ML 150 ML IV (09:53)
[2023-02-27 09:54] LABS: INR 1.1 (0.9-1.3); Prothrombin Time 12.3 SECONDS (10.1-12.7)
[2023-02-27 09:57] LABS: PTT Partial Thromboplastin Tim 29 SECONDS (26-36)
[2023-02-27 10:02] LABS: Alanine Aminotransferase 27 IU/L (<50); Albumin Globulin Ratio 1.5 (1.0-2.8); Alkaline Phosphatase 55 U/L (38-126); Aspartate Aminotransferase 30 IU/L (17-59); BUN Creatinine Ratio 19.8 (6-22); Bilirubin Total 0.8 mg/dL (0.2-1.3); Blood Urea Nitrogen 18 mg/dL (9-20); Calcium 8.7 mg/dL (8.4-10.2); Carbon Dioxide 27 mmol/L (22-32); Chloride 101 mmol/L (98-107); Creatine Kinase 148 U/L (55-170); Estimated Glomerular Filt Rate > 60 mL/min (>60); Ethanol (ETOH) < 10 mg/dL; Globulin 2.6 g/dL (1.7-4.1); Glucose 105 mg/dL (80-110); HEMOLYSIS 22 (0-50); Potassium 4.1 mmol/L (3.4-5.1); Sodium 135 mmol/L (137-145); Total Protein 6.6 g/dL (6.3-8.2)
[2023-02-27 10:11] LABS: Troponin I < 0.012 ng/mL (0.01-0.034)
--- NOTE | 2023-02-27 11:58 | PM.HP.1 ---
History of Present Illness History of Present Illness Date Patient Seen: 02/27/23 Time Patient Seen: 11:58 Chief complaint: poss stroke Narrative: This is a 72 year old male with PMH of paroxysmal afib (6% burden on recent holter), HLD who presented with acute onset of facial droop on the R. He had some difficulty with speech and was drooling from his R side. This started at 7:20 AM and felt relatively normal prior to this. He denies any weakness, numbness or tingling of his R upper or lower extremity. He has some metal in his ears after a surgery that precludes him from any MRI. Initial CT and CTA were unremarkable. 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 In the ER, EKG showed sinus bradycardia. He was admitted for further evaluation and management of TIA vs CVA. 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 household members: spouse Smoking Status: Never smoker alcohol intake: current Meds Home Medications and Allergies Home Medications Medication Instructions Recorded Confirmed Type ketoconazole 2 % topical cream 1 applic topical DAILY PRN Rash 08/21/22 02/27/23 History psyllium husk (aspartame) 3.4 gram 1 packet PO BID #44 ea 08/29/22 02/27/23 Rx oral powder packet (Metamucil Fiber Singles) simvastatin 40 mg tablet 40 mg PO BEDTIME #90 tabs 10/26/22 02/27/23 Rx Allergies Allergy/AdvReac Type Severity Reaction Status Date / Time pollen, fur Allergy Mild itchy eyes Uncoded 02/27/23 09:33 and sniffles Review of Systems Review of Systems Narrative: All other systems reviewed with the patient and are negative unless otherwise stated. Exam Vital Signs (past 8 hours): - 02/27/23 09:33 02/27/23 09:34 02/27/23 09:34 Pulse Rate 54 L 54 L Respiratory Rate 16 Blood Pressure 148/68 H Pulse Oximetry 98 02/27/23 10:00 02/27/23 10:01 02/27/23 10:01 Pulse Rate 50 L 50 L Respiratory Rate 19 20 Blood Pressure 137/65 Pulse Oximetry 97 96 02/27/23 10:30 02/27/23 10:30 02/27/23 11:00 Pulse Rate 49 L Respiratory Rate 21 Blood Pressure 128/66 124/64 Pulse Oximetry 96 02/27/23 11:00 Pulse Rate 47 L Respiratory Rate 20 Blood Pressure Pulse Oximetry 96 Narrative Exam Narrative: General:? Patient is well developed and well nourished, in no distress at this time. HEENT:? Normocephalic, atraumatic, extraocular muscles intact, oral pharynx is clear and mucous membranes are moist. Neck: supple and symmetric, trachea is midline, no cervical adenopathy. Negative for JVD Chest:? Normal AP diameter and contour without kyphoscoliosis, no tachypnea, equal chest rise bilaterally. Lungs:? CTA b/l no wheezing rhonchi or rales. Cardio:?RRR no m/r/g. Abdomen: S NT ND. Musculoskeletal:? Muscle strength and tone are equal within normal limits, no deformity. Extremities: No edema or joint effusions. No cyanosis or clubbing. Skin:? Pale,? Warm to touch,dry and intact without rashes, ulcerations or petechiae.? Neuro:? Alert and orientated x3,? sensation to touch intact in all extremities, no gross deficits noted of cranial nerves. Mild R facial droop, improving, slight dysarthria Psych:? Patient has a well-kept appearance, appropriate affect, mental status attitude thought context and judgment are appropriate for age. Objective ECG Impression: Sinus bradycardia with no ischemic changes as interpreted by ms Labs 02/27/23 09:35 02/27/23 09:35 Labs: Laboratory Results - last 24 hr 02/27/23 02/27/23 02/27/23 09:35 09:35 09:35 WBC 6.1 RBC 4.14 L Hgb 13.3 L Hct 38.6 L MCV 93.3 MCH 32.0 MCHC 34.4 RDW 14.1 Plt Count 187 Neut % (Auto) 52.5 Lymph % (Auto) 31.4 [place] % (Auto) 9.3 Eos % (Auto) 6.1 H Baso % (Auto) 0.7 Neut # (Auto) 3200 Lymph # (Auto) 1900 [place] # (Auto) 600 Eos # (Auto) 400 Baso # (Auto) 0 PT 12.3 INR 1.1 APTT 29 Sodium 135 L Potassium 4.1 Chloride 101 Carbon Dioxide 27 BUN 18 Creatinine 0.91 Estimated GFR > 60 BUN/Creatinine Ratio 19.8 Glucose 105 Calcium 8.7 Total Bilirubin 0.8 AST 30 ALT 27 Alkaline Phosphatase 55 Total Creatine Kinase 148 Troponin I < 0.012 Total Protein 6.6 Albumin 4.0 Globulin 2.6 Albumin/Globulin Ratio 1.5 Ethyl Alcohol < 10 Assessment & Plan Assessment & Plan narrative: 1. TIA vs CVA, embolic - patient presented with R facial droop and slurred speech. Unable to obtain MRI given metal in his ear. - CT scan shows an old cerebellar stroke which would not explain current symptoms, though given history of afib this supports embolic diagnosis. - for now will monitor for progression, with no ability for MRI, if his symptoms resolve can discharge on oral AC. - TTE ordered - Vascular imaging thus far has been unremarkable - no changes to home statin recommended 2. HLD - continue home statin 3. Atrial fibrillation, paroxysmal - now indicated for anticoagulation as discussed above. outpatient holter indicated 6% afib burden. - TTE pending, currently sinus rhythm with no RVR or symptoms. Code: Full, surrogate is patient's spouse DVT: Lovenox I have utilized all available immediate resources to obtain, update, or review the patient's current medications. Dispo: observation for now, depending on if symptom improvement or not consider inpatient. Additional history obtained from the ER provider and spouse. I have reviewed patient's imaging, labs, EKG, and documentation. COVID-19 COVID-19 status: Negative Quality MIPS - Admit I confirm the patient?s Advance Care Plan is present, Code status is documented, Surrogate decision maker is in patient?s record [If Yes, STOP here]: Yes
--- NOTE | 2023-02-27 11:59 | DI.ECHO.S_ITS ---
[place] [facility]---------+ [facility] +---------+ : : [address] : : : : [id number] : : : : Phone: [phone]+ Echocardiogram Report + + :Name: CAESAR CACERES Study Date: 02/27/2023 Height: 74 in : :[facility] ReadingLocation: Weight: 176 lb : : Gender: Male BSA: 2.1 m2 : :: 1950 Age: 72 yrs BP: 115/54 mmHg: :Reason For Study: CVA : :Ordering Physician: ULISSES, : :SWATHI FRANCO Performed By: Bonnie Lema : :Referring: SWATHI GTZ : + + Interpretation Summary Normal left ventricle size with ejection fraction 60-65%. Mildly dilated right atrium. Mild aortic regurgitation. Injection of contrast documented no interatrial shunt. Comparison is made with the echocardiogram of 08/17/2022, there has been no significant change. Procedure: A two-dimensional transthoracic echocardiogram with color flow and Doppler was performed. The study quality was technically adequate. Comparison is made with the echocardiogram of 08/17/2022. The patient was in sinus bradycardia with heart rates between 47-60 bpm during the exam. Left Ventricle: The left ventricle is normal in size and wall thickness. The ejection fraction is estimated to be 60-65%. There are no focal wall motion abnormalities. Right Ventricle: The right ventricle is normal in size and function. Atria: The left atrial size is normal. The right atrium is mildly dilated. Injection of contrast documented no interatrial shunt. Mitral Valve: The mitral valve leaflets appear borderline thickened, but open well. There is trace mitral regurgitation. Aortic Valve: The aortic valve is trileaflet. The aortic valve opens well. There is no aortic valve stenosis. There is mild aortic regurgitation. Tricuspid Valve: The tricuspid valve is normal in structure and function. There is trace tricuspid regurgitation. Pulmonary artery pressures cannot be estimated because of the lack of a measurable TR jet velocity. Pulmonic Valve: The pulmonic valve is not well seen, but is grossly normal. There is no pulmonic valvular regurgitation. Great Vessels: The aortic root is normal size. The dimensions of the ascending aorta are normal. The IVC is dilated (diameter is greater than 2.1 cm) yet it collapses greater than 50% with a sniff. This suggests a right atrial pressure of 8 mm Hg. Pericardium/ Pleura There is no pericardial effusion. There is no pleural effusion. MMode/2D Measurements & Calculations LVIDd: 5.4 cm LVOT diam: 2.3 cm LVIDs: 3.7 cm Ao root diam: 3.1 cm FS: 31.2 % asc Aorta Diam: 2.8 cm EPSS: 0.80 cm IVSd: 0.66 cm LVPWd: 0.71 cm LV ozuna. diameter/BSA (cm/m^2): 2.6 LV sys. diameter/BSA (cm/m^2): 1.8 LA A2 area: 19.8 cm2 RA long axis: 6.1 cm LA A4 area: 20.8 cm2 RA area: 22.9 cm2 LA length (vol): 5.4 cm RA vol: 72.9 ml LA vol: 64.4 ml RA : 35.4 ml/m2 LA vol index: 31.3 ml/m2 IVC diam: 2.7 cm RVD1 (basal): 3.9 cm RVD2 (mid): 3.3 cm TAPSE: 2.9 cm Doppler Measurements & Calculations Ao V2 max: 124.7 cm/sec LVOT Max Ramon: 109.7 cm/sec Ao V2 mean: 90.5 cm/sec LV V1 max P.8 mmHg Ao max P.2 mmHg LV V1 VTI: 23.1 cm Ao mean P.6 mmHg TALISHA(I,D): 3.3 cm2 Ao V2 VTI: 30.0 cm TALISHA(V,D): 3.8 cm2 sev ratio: 0.77 TALISHA indexed to BSA (cm^2/m^2): 1.6 MV E max ramon: 90.2 cm/sec PA V2 max: 79.5 cm/sec MV A max ramon: 58.0 cm/sec PA V2 mean: 58.6 cm/sec MV E/A: 1.6 PA mean P.5 mmHg Med Peak E' Ramon: 8.4 cm/sec PA pr(Accel): 7.1 mmHg E/E' med: 10.7 Lat Peak E' Ramon: 9.7 cm/sec E/E' lat: 9.3 E/e' average: 10.0 MV dec time: 0.18 sec SV(LVOT): 99.9 ml Electronically signed by: Terri Griffin on Reading Physician:02/27/2023 05:01 PM
[2023-02-27 12:51] LABS: Influenza A - CEPHEID Flu A NEGATIVE (NEGATIVE); Influenza B - CEPHEID Flu B NEGATIVE (NEGATIVE); Respiratory Syncytial Virus Negative (Negative)
[2023-02-27 12:52] LABS: COVID-19 CEPHEID 4-PLEX PCR Negative (Negative)
[2023-02-27] MEDS: SODIUM CHLORIDE 0.9% FLUSH 10 ML IV (21:35)
[2023-02-28] VITALS: BP 103/52; PULSE 98; RESP 16; TEMP 36.7; O2SAT 98
[2023-02-28 01:00] VITALS: O2SAT 98
[2023-02-28 03:21] LABS: Ur Creatinine Normal (Normal); Ur Specific Gravity Normal (Normal); Urine pH Normal (Normal)
[2023-02-28 03:22] LABS: UR Morphine/Opiate cutoff 300 Negative (Negative); Urine Amphetamines Negative (Negative); Urine Barbiturates Negative (Negative); Urine Benzodiazepines Negative (Negative); Urine Cocaine Negative (Negative); Urine MDMA Negative (Negative); Urine Methadone Negative (Negative); Urine Methamphetamines Negative (Negative); Urine Oxycodone Negative (Negative); Urine Phencyclidine Negative (Negative); Urine Tetrahydrocannabinol Negative (Negative); Urine Tricyclic Antidepressant Negative (Negative)
[2023-02-28 04:00] VITALS: BP 109/62; PULSE 51; RESP 17; TEMP 36.7; O2SAT 96
[2023-02-28 05:00] VITALS: O2SAT 96
[2023-02-28 05:56] LABS: Add Manual Diff / Slide Review NO; Basophils Absolute Auto 0 /uL (0-100); Basophils Percent Auto 0.6 % (0-2); Eosinophils Absolute Auto 400 /uL (0-450); Eosinophils Percent Auto 5.9 % (2-4); Hematocrit 40.7 % (41-53); Hemoglobin 13.9 g/dL (13.5-17.5); Lymphocytes Absolute Auto 1500 /uL (1100-4500); Lymphocytes Percent Auto 20.9 % (25-40); Mean Corpuscular HGB Conc 34.1 % (30-36); Mean Corpuscular Hemoglobin 31.7 PG (26-34); Mean Corpuscular Volume 92.8 fL (80-100); Monocytes Absolute Auto 600 /uL (0-900); Monocytes Percent Auto 9.1 % (3-14); Neutrophils Absolute Auto 4400 /uL (1500-7000); Neutrophils Percent Auto 63.5 % (50-75); Platelet Count 172 X10^3/uL (150-400); Red Blood Cell Count 4.38 X10^6/uL (4.5-5.9); Red Cell Distribution Width 13.9 % (11.6-14.8)
[2023-02-28 06:05] LABS: Hemoglobin A1C% w Est Avg Glu 5.4 % (4.0-6.0)
[2023-02-28 06:06] LABS: BUN Creatinine Ratio 18.1 (6-22); Blood Urea Nitrogen 15 mg/dL (9-20); Carbon Dioxide 25 mmol/L (22-32); Chloride 105 mmol/L (98-107); Estimated Glomerular Filt Rate > 60 mL/min (>60); Glucose 98 mg/dL (80-110); HEMOLYSIS < 15 (0-50); Potassium 4.1 mmol/L (3.4-5.1); Sodium 135 mmol/L (137-145)
[2023-02-28 06:37] LABS: TSH w/ Reflex to FT4 3.14 uIU/mL (0.47-4.68)
[2023-02-28 08:00] VITALS: BP 118/64; PULSE 46; RESP 16; TEMP 36.6; O2SAT 98; O2SAT 99
[2023-02-28] MEDS: ENOXAPARIN 40 MG/0.4 ML SYRINGE SUBCUT (08:52)
[2023-02-28] MEDS: SODIUM CHLORIDE 0.9% FLUSH 10 ML IV (08:52)
--- NOTE | 2023-02-28 10:32 | P.DS_ITS ---
History of Present Illness History of Present Illness Date Patient Seen: 02/28/23 Time Patient Seen: 10:32 Chief complaint: poss stroke Narrative: This is a 72 year old male with PMH of paroxysmal afib (6% burden on recent holter), HLD who presented with acute onset of facial droop on the R. He had some difficulty with speech and was drooling from his R side. This started at 7:20 AM and felt relatively normal prior to this. He denies any weakness, numbness or tingling of his R upper or lower extremity. He has some metal in his ears after a surgery that precludes him from any MRI. Initial CT and CTA were unremarkable. 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 In the ER, EKG showed sinus bradycardia. He was admitted for further evaluation and management of TIA vs CVA. Discharge Providers Provider Date of admission: 02/27/23 10:55 Discharge Date: 02/28/23 Primary care physician: Gabriel Jaime MD Discharge provider: Maykel Pérez DO Summary Hospital Course Discharge Diagnosis: 1. TIA vs CVA, embolic 2. HLD 3. Atrial fibrillation, paroxysmal Hospital Course: 72 M admitted with R facial droop and slurred speech. He has a history of atrial fibrillation controlled without medication. He has a cochlear metal ? implant and is unable to undergo MRI. Initial head CT showed an old cerebellar infarct, but this would not correlate with his presentation. His facial droop and slurred speech nearly resolved prior to discharge. Echocardiogram showed no atrial thrombus and no PFO, unchanged from recent studies. Vascular imaging was also unremarkable. He was continued on his chronic statin, and started on anticoagulation at discharge with Xarelto for secondary stroke prevention from atrial fibrillation. He did not wish to stay for speech evaluation given return to near normal, he stated he was already set up to see his PCP for hospitalization review next week. Given near resolution of symptoms, we did discuss the possibility of hemorrhage from stroke with apixaban, and this is more difficult to assess with MR imaging. After a risk benefit discussion he thought best to start oral anticoagulation just after discharge and xarelto was sent to the local pharmacy to start tomorrow. Time Spent with Patient Time spent: Greater than 30 minutes Exam Vital Signs (past 8 hours): - 02/28/23 04:00 02/28/23 05:00 02/28/23 08:00 Temperature 98.0 F 97.9 F Pulse Rate 51 L 46 L Respiratory Rate 17 16 Blood Pressure 109/62 118/64 Pulse Oximetry 96 96 98 Oxygen Delivery Method Room Air Oxygen Flow Rate 0 0 Oxygen Delivery Method Room Air Oxygen Flow Rate 0 Narrative Exam Narrative: General:? Patient is well developed and well nourished, in no distress at this time. Chest:? Normal AP diameter and contour without kyphoscoliosis, no tachypnea, equal chest rise bilaterally. Musculoskeletal:? Muscle strength and tone are equal within normal limits, no deformity. Extremities: No edema or joint effusions. No cyanosis or clubbing. Skin:? Pale,? Warm to touch,dry and intact without rashes, ulcerations or petechiae.? Neuro:? Alert and orientated x3,? sensation to touch intact in all extremities, no gross deficits noted of cranial nerves. Mild R facial droop, nearly resolved with no dysarthria noted today. Psych:? Patient has a well-kept appearance, appropriate affect, mental status attitude thought context and judgment are appropriate for age. Objective Labs 02/28/23 05:20 02/28/23 05:20 Labs: Laboratory Results - last 24 hr 02/27/23 02/28/23 02/28/23 11:37 03:10 05:20 WBC 7.0 RBC 4.38 L Hgb 13.9 Hct 40.7 L MCV 92.8 MCH 31.7 MCHC 34.1 RDW 13.9 Plt Count 172 Neut % (Auto) 63.5 Lymph % (Auto) 20.9 L [place] % (Auto) 9.1 Eos % (Auto) 5.9 H Baso % (Auto) 0.6 Neut # (Auto) 4400 Lymph # (Auto) 1500 [place] # (Auto) 600 Eos # (Auto) 400 Baso # (Auto) 0 Sodium Potassium Chloride Carbon Dioxide BUN Creatinine Estimated GFR BUN/Creatinine Ratio Glucose Hemoglobin A1c Calcium Magnesium TSH U Opiates 300ng/mL cut Negative Ur Oxycodone Screen Negative Urine Methadone Screen Negative Ur Barbiturates Screen Negative U Tricyclic Antidepress Negative Ur Phencyclidine Scrn Negative Ur Amphetamines Screen Negative U Methamphetamines Scrn Negative Ur MDMA Scrn (Ecstasy) Negative U Benzodiazepines Scrn Negative Urine Cocaine Screen Negative U Marijuana (THC) Screen Negative SARS-CoV-2 (PCR) Negative Influenza A (RT-PCR) Flu a negative Influenza B (RT-PCR) Flu b negative RSV (PCR) Negative 02/28/23 02/28/23 02/28/23 05:20 05:20 05:20 WBC RBC Hgb Hct MCV MCH MCHC RDW Plt Count Neut % (Auto) Lymph % (Auto) [place] % (Auto) Eos % (Auto) Baso % (Auto) Neut # (Auto) Lymph # (Auto) [place] # (Auto) Eos # (Auto) Baso # (Auto) Sodium 135 L Potassium 4.1 Chloride 105 Carbon Dioxide 25 BUN 15 Creatinine 0.83 Estimated GFR > 60 BUN/Creatinine Ratio 18.1 Glucose 98 Hemoglobin A1c 5.4 Calcium 9.0 Magnesium 2.0 TSH 3.14 U Opiates 300ng/mL cut Ur Oxycodone Screen Urine Methadone Screen Ur Barbiturates Screen U Tricyclic Antidepress Ur Phencyclidine Scrn Ur Amphetamines Screen U Methamphetamines Scrn Ur MDMA Scrn (Ecstasy) U Benzodiazepines Scrn Urine Cocaine Screen U Marijuana (THC) Screen SARS-CoV-2 (PCR) Influenza A (RT-PCR) Influenza B (RT-PCR) RSV (PCR) [facility] Medical History Asthma Chronic low back pain Erectile dysfunction Family history of prostate cancer Hearing loss History of colonic polyps Hypercholesteremia Mixed hyperlipidemia Obstructive sleep apnea (~1999) Sciatic nerve pain Seborrheic dermatitis Tinnitus Surgical History Anesthesia History of cholecystectomy (~2019) Hx of tonsillectomy (~1954) Otosclerosis (~1977) Family History Father Congestive heart failure Mother Dementia Sister Joint replaced Sister Joint replaced Social History details: (Marianela), 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 These did improve with time. Because of your history of atrial fibrillation treatment is with an anticoagulant. Xarelto was sent to your [facility], this is a once a day medication. Please follow up with Dr. Jaime to review hospitalization and discuss possible next steps. Discharge orders & Medications Prescriptions: New rivaroxaban 20 mg tablet 20 mg PO DAILY 30 Days Qty: 30 0RF Rx Instructions: must administer with evening meal Continued simvastatin 40 mg tablet 40 mg PO BEDTIME Qty: 90 3RF ketoconazole 2 % cream 1 applic TOPICAL DAILY PRN (Reason: Rash) Rx Instructions: on face around nose Metamucil Fiber Singles 3.4 gram Powder In Packet 1 packet PO BID Qty: 44 10RF Follow up/Referrals: Gabriel Jaime MD [Primary Care Provider] - (03/06 @ 9:15 check in for a 9:[address] jaime ) Diet/Activity/Treatments Diet: Diet as Tolerated and Regular Diet comment: As tolerated Activity: No restrictions. Visit Report/Discharge Packet Instructions: Atrial Fibrillation, DI for Stroke-Ischemic, DI for Esophageal Dysphagia, DI for Oropharyngeal Dysphagia Stand Alone Forms: Patient Portal/API, Stroke Signs & Symptoms Discharge Data Primary Care Provider: Gabriel Jaime V Attending Provider: Maykel Pérez Admit Date/Time: 02/27/23 10:55 Discharges patient from system. Discharge Date/Time: 02/28/23 11:00 Quality VTE Deep Vein Thrombosis/Pulmonary Embolism Present on Admission: No
--- NOTE | 2023-02-28 11:04 | PC.NURSE ---
Pt is dressed and ready for discharge home with Spouse. IV and tele have been removed. Reviewed d/c instructions-discussed new med-and side effects, stroke education, follow up and provided info on afib and Xarelto. Pt denied further questions and was taken out via w/c by RN to POV with Spouse and all belongings.
== END 2023-02-28 11:00 | disposition home or self-care (01) ==
LOC: ED 10:42 → AC 10:56
PROVIDERS: Admitting Provider Internal Medicine; Emergency Provider Emergency Medicine; PCP Internal Medicine; Visit Provider Internal Medicine
DX: R29.810 Facial weakness (principal); R47.81 Slurred speech; I48.0 Paroxysmal atrial fibrillation; E78.5 Hyperlipidemia, unspecified; R29.702 NIHSS score 2; Z20.822 Contact with and (suspected) exposure to COVID-19
CPT/HCPCS: 0241U; 36415; 70450; 70496; 70498; 80048; 80053; 80305; 80320; 82550; 82962; 83036; 83735; 84443; 84484; 85025; 85610; 85730; 93005; 93010; 93306; 96360; 96372; 99284; G0378; J1650; Q9967

== ENCOUNTER → 2023-12-03 16:22 | Outpatient (CLI) | payer MEDICARE, SELFPAY ==
[2023-02-27 11:16] VITALS: BMI 22.6
[2023-12-03 17:15] LABS: Hematocrit 39.9 % (41-53); Hemoglobin 13.5 g/dL (13.5-17.5); Mean Corpuscular HGB Conc 33.9 % (30-36); Mean Corpuscular Hemoglobin 31.5 PG (26-34); Mean Corpuscular Volume 92.9 fL (80-100); Platelet Count 203 X10^3/uL (150-400); Red Blood Cell Count 4.29 X10^6/uL (4.5-5.9); White Blood Cell Count 6.7 X10^3/uL (4.5-11.0)
[2023-12-03 18:03] LABS: Alanine Aminotransferase 24 IU/L (<50); Albumin 4.6 g/dL (3.5-5.0); Albumin Globulin Ratio 1.8 (1.0-2.8); Alkaline Phosphatase 71 U/L (38-126); Aspartate Aminotransferase 31 IU/L (17-59); BUN Creatinine Ratio 26.5 (6-22); Bilirubin Total 0.5 mg/dL (0.2-1.3); Blood Urea Nitrogen 26 mg/dL (9-20); Carbon Dioxide 27 mmol/L (22-32); Chloride 106 mmol/L (98-107); Cholesterol 167 mg/dL (140-199); Estimated Glomerular Filt Rate > 60 mL/min (>60); Globulin 2.6 g/dL (1.7-4.1); Glucose 98 mg/dL (80-110); HDL Cholesterol 54 mg/dL (40-60); HEMOLYSIS < 15 (0-50); LDL Cholesterol Calculated 92 mg/dL (<100); Potassium 4.5 mmol/L (3.4-5.1); Sodium 137 mmol/L (137-145); Total Protein 7.2 g/dL (6.3-8.2); Triglycerides 106 mg/dL (35-150)
[2023-12-03 18:26] LABS: Prostate Specific Antigen 0.291 ng/mL (0.10-4.00)
== END ==
PROVIDERS: PCP Internal Medicine; Referring Provider Internal Medicine; Visit Provider Internal Medicine
DX: I48.91 Unspecified atrial fibrillation (principal); E78.2 Mixed hyperlipidemia; Z80.42 Family history of malignant neoplasm of prostate
CPT/HCPCS: 36415; 80053; 80061; 84153; 85027

== ENCOUNTER → 2025-01-05 15:44 | Outpatient (CLI) | payer MEDICARE, SELFPAY ==
[2023-02-27 11:16] VITALS: BMI 22.6
[2025-01-05 17:06] LABS: Hematocrit 41.2 % (41-53); Hemoglobin 14.0 g/dL (13.5-17.5); Mean Corpuscular HGB Conc 34.0 % (30-36); Mean Corpuscular Hemoglobin 31.7 PG (26-34); Mean Corpuscular Volume 93.2 fL (80-100); Platelet Count 203 X10^3/uL (150-400)
[2025-01-05 17:21] LABS: Alanine Aminotransferase 26 IU/L (<50); Albumin 4.6 g/dL (3.5-5.0); Albumin Globulin Ratio 1.8 (1.0-2.8); Alkaline Phosphatase 68 U/L (38-126); Blood Urea Nitrogen 22 mg/dL (9-20); Calcium 9.4 mg/dL (8.4-10.2); Carbon Dioxide 28 mmol/L (22-32); Chloride 104 mmol/L (98-107); Cholesterol 157 mg/dL (140-199); Estimated Glomerular Filt Rate > 60 mL/min (>60); Globulin 2.5 g/dL (1.7-4.1); Glucose 89 mg/dL (70-99); HDL Cholesterol 49 mg/dL (40-60); HEMOLYSIS < 15 (0-50); Potassium 4.3 mmol/L (3.4-5.1); Sodium 138 mmol/L (137-145); Total Protein 7.1 g/dL (6.3-8.2); Triglycerides 163 mg/dL (35-150)
[2025-01-05 17:51] LABS: TSH w/ Reflex to FT4 2.60 uIU/mL (0.47-4.68)
[2025-01-05 17:52] LABS: Prostate Specific Antigen 0.349 ng/mL (0.10-4.00)
== END ==
PROVIDERS: PCP Internal Medicine; Referring Provider Internal Medicine; Visit Provider Internal Medicine
DX: N13.8 Other obstructive and reflux uropathy (principal); E78.2 Mixed hyperlipidemia; N40.1 Benign prostatic hyperplasia with lower urinary tract symptoms; I48.0 Paroxysmal atrial fibrillation
CPT/HCPCS: 36415; 80053; 80061; 84153; 84443; 85027